=== PATIENT | female | born 1985 | race African-American/Black ===

== ENCOUNTER 2020-07-29 14:57 | Inpatient (IN) | payer OTHER, SELFPAY ==
[2020-07-29 17:18] VITALS: BMI 30.5
[2020-07-29 18:00] VITALS: BP 122/83; PULSE 72; TEMP 36.8; O2SAT 100
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
--- NOTE | 2020-07-29 19:05 | PC.NURSE ---
PT SIGNED A 3 DAY NOTICE ON 07/29/20, UP ON Monday08/03/20.
[2020-07-29] MEDS: cephALEXin 500 MG CAPSULE PO (21:30)
[2020-07-29] MEDS: risperiDONE 1 MG TABLET PO (21:30)
[2020-07-30] MEDS: cephALEXin 500 MG CAPSULE PO ×3 (08:22→20:28)
[2020-07-30 08:51] LABS: Cholesterol 139 mg/dL; Estimated Average Glucose 91 mg/dL; HDL Cholesterol 38 mg/dL; Hemoglobin A1c % 4.8 %; LDL Cholesterol Calculated 96 mg/dl; Triglycerides 25 mg/dL
[2020-07-30 09:08] LABS: Thyroid Stimulating Hormone 0.93 uIU/mL (0.32-4.0)
[2020-07-30 09:58] LABS: Folate 4.4 ng/mL (> or = 4.0); Vitamin B12 1981 pg/mL (200-900)
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
[2020-07-30 14:32] VITALS: BMI 31.0
--- NOTE | 2020-07-30 15:13 | PC.NURSE ---
Hospitalist consult entered for eval of right breast cyst. Pt reports she has had this for sometime and its not draining.
[2020-07-30 16:50] VITALS: BP 119/63; PULSE 70; RESP 16; TEMP 36.7; O2SAT 100
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
[2020-07-31] MEDS: cephALEXin 500 MG CAPSULE PO ×2 (08:54→14:55)
--- NOTE | 2020-07-31 12:52 | P.DS_ITS ---
DS: Providers Provider Date of Service: 07/31/20 Date of admission: 07/29/20 14:57 Date of discharge: 07/31/20 Primary care physician: Stu Kulkarni MD Attending physician on admission: Aj Oneill Consults: 07/30/20 13:43 Consult to Hospitalist Routine Consulting Provider: Hospitalist Reason For Exam: admissions physical Attending physician on discharge: Aj Oneill DS: Diagnosis Discharge Diagnosis (1) Bipolar 1 disorder: Status: Acute (2) Cellulitis of female breast: Status: Acute Problem details: on abx DS: Medications Discharge Medications Home Medications: Home Medications Medication Instructions Recorded Confirmed cephalexin 500 mg PO TID 07/30/20 07/30/20 Discharge Plan Discharge Patient Disposition: Home, Self-Care Discharge Diagnosis: Bipolar disorder, single manic episode Referrals: [facility] [Other] - 1 Week (Please call the above number to schedule an Intake therapy and medication evaluation appointment) [facility] [Other] - 1 Week (Please call the above number to schedule an Intake if you are interested in the [facility] program) Stu Kulkarni MD [Primary Care Provider] - 1 Week Discharge Medications: Continued cephalexin 500 mg Capsule 500 mg PO TID RF: 0 Discharge Orders: Discharge Order (Routine); Ordered 07/31/20 Ordered By: Aj Oneill Diet: regular diet Activity on Discharge: As tolerated Stand Alone Forms: Patient Portal Discharge page, Community Support Care Plan Goals: [facility] with pending [facility] Maintain mood and safe behaviors Practice coping skills Reach out for help when needed Health Concerns: Mood instability; history of SI Cellulitis Plan of Treatment: Follow up with PCP regarding Cellulitis Consider meeting with psychiatric prescriber Assessment: Risk assessment at time of discharge: Patient has been observed closely by nursing and unit staff throughout admission; patient has not engaged in any behaviors that suggest dangerousness to self or others and has demonstrated appropriate behaviors and impulse control. Patient was interviewed prior to discharge and found to be fully oriented and without any SI or HI. Patient has insight and demonstrates good judgment in terms of wanting to pursue treatment. Patient is not in imminent risk of harm to self or others and has a safety plan that includes presenting to the closest ER or calling 911 if feeling unsafe. Discharge Date/Time: 07/31/20 18:50 Mental Status Exam Mental Status Exam Narrative: Pt is alert and oriented; behavior is cooperative, friendly and manic; patient is not in distress; dressed in appropriate casual attire with good hygiene; mood is described as great and affect expansive; eye contact appropriate; Speech is pressured; some psychomotor agitation present; thought process is organized, linear, logical and goal directed. Thought content is perseverative on persecutory delusions. But remain pertinent to relevant topics; denies any SI/HI. There is no evidence of perceptual disturbance and she denies AVH. 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 Patient is currently manic but polite, friendly and willing and able to listen to television script writer and even entertain alternative perspective. 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 this upsetting experience caused patient to feel depression and become suicidal a few months ago, however by this admission all depression and SI had resolved for over a month and she was in a good mood, without any SI or HI and determined to bring this conspiracy to light through civil lawsuits. Despite Her fixed belief she was willing to briefly stay on the unit at writers request and contemplate television script writer's proposal that her mind may be misinterpreting events. Pt however remained adamant that her interpretation of events is correct, that she is the victim of a conspiracy. Patient felt stable and placed a 3 day notice and requested discharge. throughout the admission, she remained in a good mood, with an effervescent affect and was appropriate with both staff and peers. though exuberant, she was in overall good behavioral and impulse control. she reported sleeping well in a community and in fact slept well through the night. Patient Continued to deny any SI or HI at all or any AVH; social work received information from her parents who reported no concern for any SI or HI; atient has no history of self-harm and does not use drugs or alcohol and television script writer and SW could find no evidence the patient is unsafe for unable to take care for self in the community. Although patient has paranoid and had delusional thinking, she was not in imminent risk for harm to herself or anyone else; she lives with her supportive parents in a stable environment and even agreed to see an outpatient prescriber in order to continue discussing these current events and continue to consider television script writer's assertion that her mind is playing tricks on her and that she is misinterpreting events. Patient does not rise to the level of involuntary commitment and her request for discharge honored Time Spent with Patient Time attestation: Total time spent providing and/or coordinating discharge services:
== END 2020-07-31 18:50 | disposition home or self-care (01) | DRG 753 ==
PROVIDERS: Social Worker; Admitting Provider Psychiatry & Neurology Psychiatry; PCP Internal Medicine; Visit Provider Psychiatry & Neurology Psychiatry
DX: F31.9 Bipolar disorder, unspecified (principal); N61.0 Mastitis without abscess; Z98.84 Bariatric surgery status
CPT/HCPCS: 36415; 80061; 82607; 82746; 83036; 84443

== ENCOUNTER 2021-10-22 19:35 | Inpatient (IN) | payer OTHER, SELFPAY ==
[2021-10-22 19:39] VITALS: BP 116/64; PULSE 75; O2SAT 99
[2021-10-22 19:54] VITALS: BP 124/88; PULSE 73; RESP 18; TEMP 37; O2SAT 99; BMI 18.8
--- NOTE | 2021-10-22 20:06 | ED.PSYCH ---
HPI - Psych General Chief Complaint: Psychiatric Symptoms <Jaxon Jaimes MD - Last Filed: 10/22/21 20:42> Stated Complaint: SEC 12, CRISIS <Jaxon Jaimes MD - Last Filed: 10/22/21 20:42> Time Seen by Provider: 10/22/21 19:50 <Jaxno Jaimes MD - Last Filed: 10/22/21 20:42> Source: patient, EMS, RN notes reviewed and old records reviewed <Jaxon Jaimes MD - Last Filed: 10/22/21 20:42> History of Present Illness HPI Narrative: Patient with a history of bipolar disorder presents after Section 12 was signed by the H and a lot worker. She apparently has [place] in the park recently. She states she is in a good mood because her [employer] case and the case through with Ellen Ramirez. <Jaxon Jaimes MD - Last Filed: 10/22/21 20:42> Related Data Home Medications: Home Medications Medication Instructions Recorded Confirmed No Known Home Meds 10/22/21 10/22/21 <Jaxon Jaimes MD - Last Filed: 10/22/21 20:42> Allergies/Adverse Reactions: Allergies Allergy/AdvReac Type Severity Reaction Status Date / Time No Known Allergies Allergy Verified 07/29/20 18:16 <Jaxon Jaimes MD - Last Filed: 10/22/21 20:42> PMFSH Past Medical History Medical History: Medical History Bipolar 1 disorder <Jaxon Jaimes MD - Last Filed: 10/22/21 20:42> Surgical History: Surgical History Gastric bypass status for obesity Status post panniculectomy <Jaxon Jaimes MD - Last Filed: 10/22/21 20:42> Family History Family History: Family History (Updated 07/30/20 @ 17:46 by Crissy See MD) Other Diabetes mellitus <Jaxon Jaimes MD - Last Filed: 10/22/21 20:42> Social History Social History: Social History Household Members: Family Housing: House Do you presently have visiting nurse or other home services: No Patient Tobacco Use Status: Never used Tobacco e-Cigarette/Vaping Use: Never Used Second Hand Smoke Exposure: No Advance Directives: No Advance Directives Information Provided: No service: No Sexual orientation: Did not discuss <Jaxon Jaimes MD - Last Filed: 10/22/21 20:42> Physical Exam Vital Signs: Vital Signs: Last Vital Signs Temp 98.4 F 10/23/21 11:35 Pulse 103 H 10/23/21 11:35 Resp 14 10/23/21 11:13 BP 132/88 10/23/21 11:35 Pulse Ox 100 10/23/21 11:13 O2 Del Method 10/23/21 11:13 BMI result Body Mass Index 18.8 <Jaxon Jaimes MD - Last Filed: 10/22/21 20:42> Vital Signs: Last Vital Signs Temp 98.4 F 10/23/21 11:35 Pulse 103 H 10/23/21 11:35 Resp 14 10/23/21 11:13 BP 132/88 10/23/21 11:35 Pulse Ox 100 10/23/21 11:13 O2 Del Method 10/23/21 11:13 BMI result Body Mass Index 18.8 <Jayden Pope MD - Last Filed: 10/23/21 13:27> Course Reevaluation(s) Reevaluation #1: Patient delusional with bipolar disorder paranoid awaiting for BPH and evaluation for possible inpatient psych admission. Patient had uneventful night vitals are stable <Jayden Pope MD - Last Filed: 10/23/21 13:27> Time: 09:21 <Jayden Pope MD - Last Filed: 10/23/21 13:27> MDM - Psych Lab Data Result diagrams: : 10/22/21 20:23 10/22/21 20:23 <Jaxon Jaimes MD - Last Filed: 10/22/21 20:42> Labs: Lab Results 10/22/21 10/22/21 10/22/21 Range/Units 20:23 20:23 20:23 WBC 6.7 (4.8-10.8) X10*3/uL RBC 4.36 (4.20-5.50) X10*6/uL Hgb 13.8 (12.0-16.0) g/dl Hct 41.4 (37.0-47.0) % MCV 95.0 (80.0-98.0) fL MCH 31.7 (27.0-33.0) pg MCHC 33.3 (31.0-35.0) g/dl RDW 12.6 (11.0-16.0) % Plt Count 273 (160-400) X10*3/uL MPV 8.8 L (9.4-12.3) fL Immature Gran % (Auto) 0.6 H (0.0-0.4) % Neut % (Auto) 48.2 (45-73) % Lymph % (Auto) 43.5 H (20-40) % [place] % (Auto) 6.5 (2-11) % Eos % (Auto) 0.3 (0-4) % Baso % (Auto) 0.9 (0-2) % Lymph # (Auto) 2.9 (1.2-4.9) X10*3/uL [place] # (Auto) 0.4 (0.1-1.2) X10*3/uL Eos # (Auto) 0.0 (0.0-0.4) X10*3/uL Baso # (Auto) 0.1 (0.0-0.2) X10*3/uL Abs Immat Gran (auto) 0.04 H (0.00-0.03) X10*3/uL Absolute Neuts (auto) 3.3 (2.0-8.3) x10*3/uL Absolute Nucleated RBC 0.000 (0.0-0.012) X10*3/uL Nucleated RBC % (auto) 0.0 (0.0-0.2) /100WBC Sodium 140 (135-145) mmol/L Potassium 3.7 (3.3-5.1) mmol/L Chloride 105 (96-108) mmol/L Carbon Dioxide 26 (22-29) mmol/L Anion Gap 13 (12-20) BUN 12 (9-16) mg/dL Creatinine 0.63 (0.5-1.4) mg/dL Estim Creat Clear Calc 99.0 Estimated GFR > 60 Random Glucose 80 (60-115) mg/dL Calcium 9.2 (8.4-10.2) mg/dL TSH 1.11 (0.32-4.0) uIU/mL Urine Color Urine Appearance Urine pH (5.0-9.0) Ur Specific [place] (1.005-1.025) Urine Protein (Neg-Trace) mg/dL Urine Glucose (UA) (Negative) mg/dL Urine Ketones (Negative) mg/dL Urine Blood (Negative) Urine Nitrite (Negative) Ur Leukocyte Esterase (Negative) Urine RBC (0-2) /HPF Urine WBC (0-5) /HPF Ur Squamous Epith Cells (0-2) /HPF Urine Bacteria (None Seen) Hyaline Casts (0-2) /LPF Urine Test (NEGATIVE) Urine Opiates Screen (Not Detect) Urine Fentanyl Screen (Not Detect) Acetaminophen < 1 (<30) mcg/mL Ur Barbiturates Screen (Not Detect) Ur Phencyclidine Scrn (Not Detect) Ur Amphetamines Screen (Not Detect) U Benzodiazepines Scrn (Not Detect) Urine Cocaine Screen (Not Detect) U Marijuana (THC) Screen (Not Detect) Ethyl Alcohol mg/dL COVID-19 (DENISA) Negative (Negative) COVID-19 Clin Com See Note 10/22/21 10/22/21 10/22/21 Range/Units 20:23 21:44 21:44 WBC (4.8-10.8) X10*3/uL RBC (4.20-5.50) X10*6/uL Hgb (12.0-16.0) g/dl Hct (37.0-47.0) % MCV (80.0-98.0) fL MCH (27.0-33.0) pg MCHC (31.0-35.0) g/dl RDW (11.0-16.0) % Plt Count (160-400) X10*3/uL MPV (9.4-12.3) fL Immature Gran % (Auto) (0.0-0.4) % Neut % (Auto) (45-73) % Lymph % (Auto) (20-40) % [place] % (Auto) (2-11) % Eos % (Auto) (0-4) % Baso % (Auto) (0-2) % Lymph # (Auto) (1.2-4.9) X10*3/uL [place] # (Auto) (0.1-1.2) X10*3/uL Eos # (Auto) (0.0-0.4) X10*3/uL Baso # (Auto) (0.0-0.2) X10*3/uL Abs Immat Gran (auto) (0.00-0.03) X10*3/uL Absolute Neuts (auto) (2.0-8.3) x10*3/uL Absolute Nucleated RBC (0.0-0.012) X10*3/uL Nucleated RBC % (auto) (0.0-0.2) /100WBC Sodium (135-145) mmol/L Potassium (3.3-5.1) mmol/L Chloride (96-108) mmol/L Carbon Dioxide (22-29) mmol/L Anion Gap (12-20) BUN (9-16) mg/dL Creatinine (0.5-1.4) mg/dL Estim Creat Clear Calc Estimated GFR Random Glucose (60-115) mg/dL Calcium (8.4-10.2) mg/dL TSH (0.32-4.0) uIU/mL Urine Color Urine Appearance Urine pH (5.0-9.0) Ur Specific [place] (1.005-1.025) Urine Protein (Neg-Trace) mg/dL Urine Glucose (UA) (Negative) mg/dL Urine Ketones (Negative) mg/dL Urine Blood (Negative) Urine Nitrite (Negative) Ur Leukocyte Esterase (Negative) Urine RBC (0-2) /HPF Urine WBC (0-5) /HPF Ur Squamous Epith Cells (0-2) /HPF Urine Bacteria (None Seen) Hyaline Casts (0-2) /LPF Urine Test NEGATIVE (NEGATIVE) Urine Opiates Screen Not Detected (Not Detect) Urine Fentanyl Screen Not Detected (Not Detect) Acetaminophen (<30) mcg/mL Ur Barbiturates Screen Not Detected (Not Detect) Ur Phencyclidine Scrn Not Detected (Not Detect) Ur Amphetamines Screen Not Detected (Not Detect) U Benzodiazepines Scrn Not Detected (Not Detect) Urine Cocaine Screen Not Detected (Not Detect) U Marijuana (THC) Screen Not Detected (Not Detect) Ethyl Alcohol < 10 mg/dL COVID-19 (DENISA) (Negative) COVID-19 Clin Com 10/22/21 Range/Units 21:45 WBC (4.8-10.8) X10*3/uL RBC (4.20-5.50) X10*6/uL Hgb (12.0-16.0) g/dl Hct (37.0-47.0) % MCV (80.0-98.0) fL MCH (27.0-33.0) pg MCHC (31.0-35.0) g/dl RDW (11.0-16.0) % Plt Count (160-400) X10*3/uL MPV (9.4-12.3) fL Immature Gran % (Auto) (0.0-0.4) % Neut % (Auto) (45-73) % Lymph % (Auto) (20-40) % [place] % (Auto) (2-11) % Eos % (Auto) (0-4) % Baso % (Auto) (0-2) % Lymph # (Auto) (1.2-4.9) X10*3/uL [place] # (Auto) (0.1-1.2) X10*3/uL Eos # (Auto) (0.0-0.4) X10*3/uL Baso # (Auto) (0.0-0.2) X10*3/uL Abs Immat Gran (auto) (0.00-0.03) X10*3/uL Absolute Neuts (auto) (2.0-8.3) x10*3/uL Absolute Nucleated RBC (0.0-0.012) X10*3/uL Nucleated RBC % (auto) (0.0-0.2) /100WBC Sodium (135-145) mmol/L Potassium (3.3-5.1) mmol/L Chloride (96-108) mmol/L Carbon Dioxide (22-29) mmol/L Anion Gap (12-20) BUN (9-16) mg/dL Creatinine (0.5-1.4) mg/dL Estim Creat Clear Calc Estimated GFR Random Glucose (60-115) mg/dL Calcium (8.4-10.2) mg/dL TSH (0.32-4.0) uIU/mL Urine Color Yellow Urine Appearance Clear Urine pH 6.0 (5.0-9.0) Ur Specific [place] 1.025 (1.005-1.025) Urine Protein Negative (Neg-Trace) mg/dL Urine Glucose (UA) Negative (Negative) mg/dL Urine Ketones Trace (Negative) mg/dL Urine Blood Negative (Negative) Urine Nitrite Negative (Negative) Ur Leukocyte Esterase Small (1+) H (Negative) Urine RBC 0-2 (0-2) /HPF Urine WBC 0-5 (0-5) /HPF Ur Squamous Epith Cells 0-2 (0-2) /HPF Urine Bacteria None Seen (None Seen) Hyaline Casts 0-2 (0-2) /LPF Urine Test (NEGATIVE) Urine Opiates Screen (Not Detect) Urine Fentanyl Screen (Not Detect) Acetaminophen (<30) mcg/mL Ur Barbiturates Screen (Not Detect) Ur Phencyclidine Scrn (Not Detect) Ur Amphetamines Screen (Not Detect) U Benzodiazepines Scrn (Not Detect) Urine Cocaine Screen (Not Detect) U Marijuana (THC) Screen (Not Detect) Ethyl Alcohol mg/dL COVID-19 (DENISA) (Negative) COVID-19 Clin Com <Jaxon Jaimes MD - Last Filed: 10/22/21 20:42> Lab Results 10/22/21 10/22/21 10/22/21 Range/Units 20:23 20:23 20:23 WBC 6.7 (4.8-10.8) X10*3/uL RBC 4.36 (4.20-5.50) X10*6/uL Hgb 13.8 (12.0-16.0) g/dl Hct 41.4 (37.0-47.0) % MCV 95.0 (80.0-98.0) fL MCH 31.7 (27.0-33.0) pg MCHC 33.3 (31.0-35.0) g/dl RDW 12.6 (11.0-16.0) % Plt Count 273 (160-400) X10*3/uL MPV 8.8 L (9.4-12.3) fL Immature Gran % (Auto) 0.6 H (0.0-0.4) % Neut % (Auto) 48.2 (45-73) % Lymph % (Auto) 43.5 H (20-40) % [place] % (Auto) 6.5 (2-11) % Eos % (Auto) 0.3 (0-4) % Baso % (Auto) 0.9 (0-2) % Lymph # (Auto) 2.9 (1.2-4.9) X10*3/uL [place] # (Auto) 0.4 (0.1-1.2) X10*3/uL Eos # (Auto) 0.0 (0.0-0.4) X10*3/uL Baso # (Auto) 0.1 (0.0-0.2) X10*3/uL Abs Immat Gran (auto) 0.04 H (0.00-0.03) X10*3/uL Absolute Neuts (auto) 3.3 (2.0-8.3) x10*3/uL Absolute Nucleated RBC 0.000 (0.0-0.012) X10*3/uL Nucleated RBC % (auto) 0.0 (0.0-0.2) /100WBC Sodium 140 (135-145) mmol/L Potassium 3.7 (3.3-5.1) mmol/L Chloride 105 (96-108) mmol/L Carbon Dioxide 26 (22-29) mmol/L Anion Gap 13 (12-20) BUN 12 (9-16) mg/dL Creatinine 0.63 (0.5-1.4) mg/dL Estim Creat Clear Calc 99.0 Estimated GFR > 60 Random Glucose 80 (60-115) mg/dL Calcium 9.2 (8.4-10.2) mg/dL TSH 1.11 (0.32-4.0) uIU/mL Urine Color Urine Appearance Urine pH (5.0-9.0) Ur Specific [place] (1.005-1.025) Urine Protein (Neg-Trace) mg/dL Urine Glucose (UA) (Negative) mg/dL Urine Ketones (Negative) mg/dL Urine Blood (Negative) Urine Nitrite (Negative) Ur Leukocyte Esterase (Negative) Urine RBC (0-2) /HPF Urine WBC (0-5) /HPF Ur Squamous Epith Cells (0-2) /HPF Urine Bacteria (None Seen) Hyaline Casts (0-2) /LPF Urine Test (NEGATIVE) Urine Opiates Screen (Not Detect) Urine Fentanyl Screen (Not Detect) Acetaminophen < 1 (<30) mcg/mL Ur Barbiturates Screen (Not Detect) Ur Phencyclidine Scrn (Not Detect) Ur Amphetamines Screen (Not Detect) U Benzodiazepines Scrn (Not Detect) Urine Cocaine Screen (Not Detect) U Marijuana (THC) Screen (Not Detect) Ethyl Alcohol mg/dL COVID-19 (DENISA) Negative (Negative) COVID-19 Clin Com See Note 10/22/21 10/22/21 10/22/21 Range/Units 20:23 21:44 21:44 WBC (4.8-10.8) X10*3/uL RBC (4.20-5.50) X10*6/uL Hgb (12.0-16.0) g/dl Hct (37.0-47.0) % MCV (80.0-98.0) fL MCH (27.0-33.0) pg MCHC (31.0-35.0) g/dl RDW (11.0-16.0) % Plt Count (160-400) X10*3/uL MPV (9.4-12.3) fL Immature Gran % (Auto) (0.0-0.4) % Neut % (Auto) (45-73) % Lymph % (Auto) (20-40) % [place] % (Auto) (2-11) % Eos % (Auto) (0-4) % Baso % (Auto) (0-2) % Lymph # (Auto) (1.2-4.9) X10*3/uL [place] # (Auto) (0.1-1.2) X10*3/uL Eos # (Auto) (0.0-0.4) X10*3/uL Baso # (Auto) (0.0-0.2) X10*3/uL Abs Immat Gran (auto) (0.00-0.03) X10*3/uL Absolute Neuts (auto) (2.0-8.3) x10*3/uL Absolute Nucleated RBC (0.0-0.012) X10*3/uL Nucleated RBC % (auto) (0.0-0.2) /100WBC Sodium (135-145) mmol/L Potassium (3.3-5.1) mmol/L Chloride (96-108) mmol/L Carbon Dioxide (22-29) mmol/L Anion Gap (12-20) BUN (9-16) mg/dL Creatinine (0.5-1.4) mg/dL Estim Creat Clear Calc Estimated GFR Random Glucose (60-115) mg/dL Calcium (8.4-10.2) mg/dL TSH (0.32-4.0) uIU/mL Urine Color Urine Appearance Urine pH (5.0-9.0) Ur Specific [place] (1.005-1.025) Urine Protein (Neg-Trace) mg/dL Urine Glucose (UA) (Negative) mg/dL Urine Ketones (Negative) mg/dL Urine Blood (Negative) Urine Nitrite (Negative) Ur Leukocyte Esterase (Negative) Urine RBC (0-2) /HPF Urine WBC (0-5) /HPF Ur Squamous Epith Cells (0-2) /HPF Urine Bacteria (None Seen) Hyaline Casts (0-2) /LPF Urine Test NEGATIVE (NEGATIVE) Urine Opiates Screen Not Detected (Not Detect) Urine Fentanyl Screen Not Detected (Not Detect) Acetaminophen (<30) mcg/mL Ur Barbiturates Screen Not Detected (Not Detect) Ur Phencyclidine Scrn Not Detected (Not Detect) Ur Amphetamines Screen Not Detected (Not Detect) U Benzodiazepines Scrn Not Detected (Not Detect) Urine Cocaine Screen Not Detected (Not Detect) U Marijuana (THC) Screen Not Detected (Not Detect) Ethyl Alcohol < 10 mg/dL COVID-19 (DENISA) (Negative) COVID-19 Clin Com 10/22/21 Range/Units 21:45 WBC (4.8-10.8) X10*3/uL RBC (4.20-5.50) X10*6/uL Hgb (12.0-16.0) g/dl Hct (37.0-47.0) % MCV (80.0-98.0) fL MCH (27.0-33.0) pg MCHC (31.0-35.0) g/dl RDW (11.0-16.0) % Plt Count (160-400) X10*3/uL MPV (9.4-12.3) fL Immature Gran % (Auto) (0.0-0.4) % Neut % (Auto) (45-73) % Lymph % (Auto) (20-40) % [place] % (Auto) (2-11) % Eos % (Auto) (0-4) % Baso % (Auto) (0-2) % Lymph # (Auto) (1.2-4.9) X10*3/uL [place] # (Auto) (0.1-1.2) X10*3/uL Eos # (Auto) (0.0-0.4) X10*3/uL Baso # (Auto) (0.0-0.2) X10*3/uL Abs Immat Gran (auto) (0.00-0.03) X10*3/uL Absolute Neuts (auto) (2.0-8.3) x10*3/uL Absolute Nucleated RBC (0.0-0.012) X10*3/uL Nucleated RBC % (auto) (0.0-0.2) /100WBC Sodium (135-145) mmol/L Potassium (3.3-5.1) mmol/L Chloride (96-108) mmol/L Carbon Dioxide (22-29) mmol/L Anion Gap (12-20) BUN (9-16) mg/dL Creatinine (0.5-1.4) mg/dL Estim Creat Clear Calc Estimated GFR Random Glucose (60-115) mg/dL Calcium (8.4-10.2) mg/dL TSH (0.32-4.0) uIU/mL Urine Color Yellow Urine Appearance Clear Urine pH 6.0 (5.0-9.0) Ur Specific [place] 1.025 (1.005-1.025) Urine Protein Negative (Neg-Trace) mg/dL Urine Glucose (UA) Negative (Negative) mg/dL Urine Ketones Trace (Negative) mg/dL Urine Blood Negative (Negative) Urine Nitrite Negative (Negative) Ur Leukocyte Esterase Small (1+) H (Negative) Urine RBC 0-2 (0-2) /HPF Urine WBC 0-5 (0-5) /HPF Ur Squamous Epith Cells 0-2 (0-2) /HPF Urine Bacteria None Seen (None Seen) Hyaline Casts 0-2 (0-2) /LPF Urine Test (NEGATIVE) Urine Opiates Screen (Not Detect) Urine Fentanyl Screen (Not Detect) Acetaminophen (<30) mcg/mL Ur Barbiturates Screen (Not Detect) Ur Phencyclidine Scrn (Not Detect) Ur Amphetamines Screen (Not Detect) U Benzodiazepines Scrn (Not Detect) Urine Cocaine Screen (Not Detect) U Marijuana (THC) Screen (Not Detect) Ethyl Alcohol mg/dL COVID-19 (DENISA) (Negative) COVID-19 Clin Com <Jayden Pope MD - Last Filed: 10/23/21 13:27> Discharge Plan Discharge Patient Disposition: Admitted As Inpatient <Jaxon Jaimes MD - Last Filed: 10/22/21 20:42> Interventions: Admission Worksheet (ED) Last Done: 10/23/21 11:46 <Jaxon Jaimes MD - Last Filed: 10/22/21 20:42>
--- NOTE | 2021-10-22 20:25 | MHC.CARE ---
Pt is a bedsearch from the community and will likely be admitted today.
[2021-10-22 20:29] LABS: MANUAL DIFF FLAG NO
[2021-10-22 20:39] LABS: Basophils Absolute Auto 0.1 X10*3/uL (0.0-0.2); Basophils Percent Auto 0.9 % (0-2); Eosinophils Percent Auto 0.3 % (0-4); Hematocrit 41.4 % (37.0-47.0); Hemoglobin 13.8 g/dl (12.0-16.0); Imm Gran Abs Auto 0.04 X10*3/uL (0.00-0.03); Imm Gran Pct Auto 0.6 % (0.0-0.4); Lymphocytes Absolute Auto 2.9 X10*3/uL (1.2-4.9); Lymphocytes Percent Auto 43.5 % (20-40); Mean Corpuscular HGB Conc 33.3 g/dl (31.0-35.0); Mean Corpuscular Hemoglobin 31.7 pg (27.0-33.0); Mean Platelet Volume 8.8 fL (9.4-12.3); Monocytes Absolute Auto 0.4 X10*3/uL (0.1-1.2); Monocytes Percent Auto 6.5 % (2-11); Neutrophils Absolute Auto 3.3 x10*3/uL (2.0-8.3); Neutrophils Percent Auto 48.2 % (45-73); Platelet Count 273 X10*3/uL (160-400); Red Blood Count 4.36 X10*6/uL (4.20-5.50); Red Cell Distribution Width 12.6 % (11.0-16.0); White Blood Count 6.7 X10*3/uL (4.8-10.8)
[2021-10-22 20:44] LABS: COVID-19 Test Negative (Negative)
[2021-10-22 21:00] LABS: Ethanol < 10 mg/dL
[2021-10-22 21:04] LABS: Acetaminophen LAB < 1 mcg/mL (<30); Anion Gap 13 (12-20); Blood Urea Nitrogen 12 mg/dL (9-16); Calcium 9.2 mg/dL (8.4-10.2); Carbon Dioxide 26 mmol/L (22-29); Chloride 105 mmol/L (96-108); Estimated Glomerular Filt Rate > 60; Glucose Random 80 mg/dL (60-115); Potassium 3.7 mmol/L (3.3-5.1); Sodium 140 mmol/L (135-145)
[2021-10-22 21:24] LABS: TSH reflex Free T4 1.11 uIU/mL (0.32-4.0)
[2021-10-22 21:54] LABS: Appearance Urine Clear; Color Urine Yellow; Glucose Urine UA Negative (Negative); Leukocyte Esterase Urine Small (1+) (Negative); Nitrite Urine Negative (Negative); Specific Gravity - Urine 1.025 (1.005-1.025); UMIC TRIGGER UACC YES; Urine Blood Negative (Negative); Urine Ketones Trace mg/dL (Negative); Urine Protein Negative (Neg-Trace)
[2021-10-22 21:55] LABS: UPreg QC Valid YES; Urine Pregnancy NEGATIVE (NEGATIVE)
[2021-10-22 22:02] LABS: Bacteria Urine None Seen (None Seen); Hyaline Casts Urine 0-2 /LPF (0-2); RBC Urine 0-2 /HPF (0-2); Squamous Epithelial Cell Urine 0-2 /HPF (0-2); UACC Culture Trigger YES; WBC Urine 0-5 /HPF (0-5)
[2021-10-22 22:23] LABS: Amphetamine Screen Urine Not Detected (Not Detect); Barbiturates, Urine Not Detected (Not Detect); Benzodiazepines Screen Urine Not Detected (Not Detect); Cannabinoid Screen Urine Not Detected (Not Detect); Cocaine Screen Urine Not Detected (Not Detect); Fentanyl, urine Not Detected (Not Detect); Opiate Screen Urine Not Detected (Not Detect); Phencyclidine Screen Urine Not Detected (Not Detect)
[2021-10-23 02:08] VITALS: BP 142/96; PULSE 73; RESP 16; TEMP 36.9; O2SAT 99
--- NOTE | 2021-10-23 05:38 | PC.NURSE ---
Patient slept through the night, no distress observed/reported, behavior appropriate and non concerning, thought process coherent, thought content at time paranoid, patient was assessed by [facility] in the community, disposition is section 12 inpatient bed search, med rec completed/patient is currently not on any medication, VSS, patient' follows direction well, will continue to monitor.
--- NOTE | 2021-10-23 10:18 | PC.NURSE ---
Nurse to nurse given to m5 RN pt room will be [id number]
[2021-10-23 11:13] VITALS: BP 118/77; PULSE 93; RESP 14; TEMP 36.9; O2SAT 100
--- NOTE | 2021-10-23 11:32 | PHA.MEDREC ---
Pharmacy Consult ? Medication Reconciliation Pharmacy has completed the medication reconciliation. Reviewed med rec done by nursing (Maico). Patient reported to not be on any meds at this time, and cross-referenced with calim history to confirm.
[2021-10-23 11:35] VITALS: BP 132/88; PULSE 103; TEMP 36.9
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
[2021-10-23 18:00] VITALS: BP 128/82; PULSE 94; TEMP 37.1
[2021-10-24 06:00] VITALS: BP 131/86; PULSE 79; RESP 16; TEMP 36.7; O2SAT 99
[2021-10-24 08:39] LABS: Cholesterol 127 mg/dL; HDL Cholesterol 46 mg/dL; LDL Cholesterol Calculated 77 mg/dl; Triglycerides 22 mg/dL
[2021-10-24 08:55] LABS: Free T4 (Free Thyroxine) 0.99 ng/dL (0.71-1.85); Thyroid Stimulating Hormone 0.75 uIU/mL (0.32-4.0)
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
[2021-10-24 18:00] VITALS: RESP 16
[2021-10-25 06:00] VITALS: BP 99/62; PULSE 91; RESP 16; TEMP 36.7; O2SAT 100
[2021-10-25 07:37] LABS: Estimated Average Glucose 91 mg/dL; Hemoglobin A1c % 4.8 %
[2021-10-25 08:11] LABS: Folate 7.3 ng/mL (> or = 4.0); Vitamin B12 415 pg/mL (200-900)
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
[2021-10-25 16:22] VITALS: BP 106/65; PULSE 69
[2021-10-26 08:30] VITALS: BP 119/81; PULSE 91; TEMP 36.8
[2021-10-26 16:31] VITALS: BP 139/76; PULSE 92; RESP 22; TEMP 37.3; O2SAT 99
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
[2021-10-27 06:00] VITALS: BP 123/73; PULSE 85; RESP 18; TEMP 36.4; O2SAT 98
[2021-10-27 18:00] VITALS: BP 135/78; PULSE 109; RESP 22; TEMP 37.2; O2SAT 98
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
[2021-10-28 09:29] VITALS: BP 124/75; PULSE 74; RESP 20; TEMP 36.8; O2SAT 95
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
[2021-10-28 16:49] VITALS: BP 118/78; PULSE 69; RESP 16; TEMP 36.6; O2SAT 98
[2021-10-29 06:00] VITALS: BP 119/79; PULSE 86; RESP 18; TEMP 36.3; O2SAT 98
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
[2021-10-29 18:00] VITALS: BP 112/66; PULSE 84; RESP 16; TEMP 36.5; O2SAT 98
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
--- NOTE | 2021-10-30 14:35 | PC.NURSE ---
pts attny called to speak with pt. pt declined to come to phone as she states she has her own legal team looking into her case.
[2021-10-30 18:00] VITALS: BP 110/76; PULSE 80; RESP 20; TEMP 36.6; O2SAT 98
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
[2021-10-31 18:30] VITALS: BP 111/58; PULSE 76; TEMP 36.6; O2SAT 99
[2021-11-01 06:00] VITALS: BP 98/55; PULSE 85; RESP 18; TEMP 37; O2SAT 99
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
[2021-11-01 21:15] VITALS: BP 122/63; PULSE 78; RESP 18; TEMP 36.8; O2SAT 100
[2021-11-02 07:45] VITALS: BP 125/75; PULSE 100; RESP 16; TEMP 36.7; O2SAT 99
[2021-11-02 18:00] VITALS: RESP 16
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
[2021-11-03 21:55] VITALS: BP 118/82; PULSE 82; TEMP 36.2; O2SAT 100
[2021-11-04 08:54] VITALS: BP 107/76; PULSE 71; RESP 14; TEMP 36.3; O2SAT 100
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
[2021-11-04 16:20] VITALS: BP 134/85; PULSE 99; RESP 16; TEMP 36.5; O2SAT 98
[2021-11-04] MEDS: Divalproex Sodium ER 500 MG TAB.ER.24H PO (20:23)
[2021-11-05 06:00] VITALS: BP 129/83; PULSE 89; RESP 18
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
[2021-11-05 18:00] VITALS: BP 119/74; PULSE 77; TEMP 36.9
[2021-11-06 06:00] VITALS: BP 131/76; PULSE 85; TEMP 36.4; O2SAT 100
[2021-11-06] MEDS: Divalproex Sodium ER 500 MG TAB.ER.24H PO ×2 (09:45→20:29)
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
[2021-11-06 18:00] VITALS: RESP 20
[2021-11-06] MEDS: OLANZapine 10 MG TABLET PO (20:29)
[2021-11-07 09:13] VITALS: BP 93/55; PULSE 59; TEMP 36.6
[2021-11-07] MEDS: Divalproex Sodium ER 500 MG TAB.ER.24H PO ×2 (09:27→21:08)
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
[2021-11-07 16:53] VITALS: BP 109/69; PULSE 80; TEMP 36.8; O2SAT 94
[2021-11-07] MEDS: OLANZapine 10 MG TABLET PO (21:08)
[2021-11-08] MEDS: Divalproex Sodium ER 500 MG TAB.ER.24H PO ×2 (09:07→19:27)
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
[2021-11-08 16:36] VITALS: BP 129/75; PULSE 75; RESP 16; TEMP 36.8; O2SAT 99
[2021-11-08] MEDS: OLANZapine ODT 10 MG TAB.RAPDIS TRANSLINGU (19:27)
[2021-11-09 06:00] VITALS: BP 110/78; PULSE 99; RESP 16; TEMP 36.7; O2SAT 99
[2021-11-09 08:19] LABS: Ammonia 21 umol/L (13-55)
[2021-11-09 08:20] LABS: Alanine Aminotransferase 10 U/L (0-31); Albumin Level 3.7 g/dL (3.5-5.0); Alkaline Phosphatase 39 U/L (39-117); Aspartate Amino Transferase 11 U/L (5-31); Bilirubin Direct 0.3 mg/dL (0.0-0.5); Bilirubin Total 0.8 mg/dL (0.0-1.0); Total Protein 6.3 g/dL (6.5-8.0)
[2021-11-09] MEDS: Divalproex Sodium ER 500 MG TAB.ER.24H PO (09:05)
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
[2021-11-09 18:00] VITALS: BP 112/68; PULSE 91; RESP 16; TEMP 36.8; O2SAT 98
[2021-11-09] MEDS: Divalproex Sodium ER 500 MG TAB.ER.24H 1000 MG PO (19:54)
[2021-11-09] MEDS: OLANZapine ODT 10 MG TAB.RAPDIS TRANSLINGU (19:55)
[2021-11-10 06:00] VITALS: BP 103/66; PULSE 98; RESP 16; TEMP 36.8; O2SAT 98
[2021-11-10] MEDS: Divalproex Sodium ER 500 MG TAB.ER.24H PO (09:31)
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
[2021-11-10 16:32] VITALS: BP 126/79; PULSE 95; RESP 116; TEMP 36.6; O2SAT 95
[2021-11-10] MEDS: OLANZapine ODT 10 MG TAB.RAPDIS 15 MG TRANSLINGU (21:28)
[2021-11-10] MEDS: Divalproex Sodium ER 500 MG TAB.ER.24H 1000 MG PO (21:28)
[2021-11-11 06:00] VITALS: BP 92/51; PULSE 61; RESP 16; TEMP 36.5; O2SAT 100
[2021-11-11] MEDS: Divalproex Sodium ER 500 MG TAB.ER.24H PO (08:08)
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
[2021-11-11 19:26] VITALS: BP 116/63; PULSE 93; TEMP 36.9
[2021-11-11] MEDS: OLANZapine ODT 10 MG TAB.RAPDIS 15 MG TRANSLINGU (22:07)
[2021-11-11] MEDS: Divalproex Sodium ER 500 MG TAB.ER.24H 1000 MG PO (22:08)
[2021-11-12 06:00] VITALS: BP 118/59; PULSE 71; RESP 14; TEMP 36; O2SAT 96
[2021-11-12 08:59] LABS: Ammonia 55 umol/L (13-55)
[2021-11-12 09:22] LABS: Valproate 77.3 mcg/mL (50.0-100.0)
[2021-11-12 09:56] LABS: Alanine Aminotransferase 9 U/L (0-31); Albumin Level 3.8 g/dL (3.5-5.0); Alkaline Phosphatase 36 U/L (39-117); Aspartate Amino Transferase 10 U/L (5-31); Bilirubin Direct 0.3 mg/dL (0.0-0.5); Bilirubin Total 0.7 mg/dL (0.0-1.0); Total Protein 6.4 g/dL (6.5-8.0)
[2021-11-12 18:14] VITALS: BP 111/71; PULSE 81; TEMP 36.4
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
[2021-11-12] MEDS: Divalproex Sodium ER 500 MG TAB.ER.24H 1500 MG PO (21:48)
[2021-11-12] MEDS: OLANZapine ODT 10 MG TAB.RAPDIS 20 MG TRANSLINGU (21:48)
[2021-11-13 13:31] VITALS: BP 107/68; PULSE 84; RESP 20; TEMP 36.2; O2SAT 100
[2021-11-13 18:00] VITALS: BP 114/62; PULSE 91; RESP 16; TEMP 36.4; O2SAT 100
[2021-11-13] MEDS: OLANZapine ODT 10 MG TAB.RAPDIS 20 MG TRANSLINGU (20:11)
[2021-11-13] MEDS: Divalproex Sodium ER 500 MG TAB.ER.24H 1500 MG PO (20:11)
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
[2021-11-14 11:30] VITALS: BP 104/65; PULSE 76; RESP 16; TEMP 36.3; O2SAT 99
[2021-11-14 17:02] VITALS: BP 110/72; PULSE 95; RESP 16; TEMP 36.4; O2SAT 96
[2021-11-14] MEDS: Divalproex Sodium ER 500 MG TAB.ER.24H 1500 MG PO (19:15)
[2021-11-14] MEDS: OLANZapine ODT 10 MG TAB.RAPDIS 20 MG TRANSLINGU (19:16)
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
[2021-11-15 06:00] VITALS: BP 114/62; PULSE 70; RESP 14; TEMP 36.4; O2SAT 100
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
[2021-11-15 18:00] VITALS: BP 156/66; PULSE 78; RESP 20; TEMP 36.2; O2SAT 100
[2021-11-15] MEDS: Divalproex Sodium ER 500 MG TAB.ER.24H 1500 MG PO (22:19)
[2021-11-15] MEDS: OLANZapine ODT 10 MG TAB.RAPDIS 30 MG TRANSLINGU (22:21)
[2021-11-16 06:00] VITALS: BP 106/67; PULSE 80; RESP 18
[2021-11-16 16:20] VITALS: BP 118/71; PULSE 88; RESP 16; O2SAT 98
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
[2021-11-16] MEDS: OLANZapine ODT 10 MG TAB.RAPDIS 30 MG TRANSLINGU (20:32)
[2021-11-16] MEDS: Divalproex Sodium ER 500 MG TAB.ER.24H 1500 MG PO (20:32)
[2021-11-17 06:00] VITALS: PULSE 76; RESP 17; TEMP 36; O2SAT 99
[2021-11-17 09:27] VITALS: BP 92/64; PULSE 64; RESP 16
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
[2021-11-17 18:00] VITALS: BP 98/71; PULSE 93; TEMP 36.9; O2SAT 99
[2021-11-17] MEDS: Divalproex Sodium ER 500 MG TAB.ER.24H 1500 MG PO (22:39)
[2021-11-17] MEDS: OLANZapine ODT 10 MG TAB.RAPDIS 30 MG TRANSLINGU (22:39)
[2021-11-18 11:42] VITALS: BP 116/71; PULSE 99; RESP 18; TEMP 36.7; O2SAT 98
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
[2021-11-18] MEDS: Lithium Carbonate ER 300 MG TABLET.ER PO (20:46)
[2021-11-18] MEDS: OLANZapine ODT 10 MG TAB.RAPDIS 30 MG TRANSLINGU (20:46)
[2021-11-18] MEDS: Divalproex Sodium ER 500 MG TAB.ER.24H 1500 MG PO (20:46)
[2021-11-19 06:00] VITALS: BP 87/53; PULSE 75; RESP 16; TEMP 36.6; O2SAT 100
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
[2021-11-19 18:07] VITALS: BP 120/70; PULSE 100; TEMP 36.9; O2SAT 100
[2021-11-19] MEDS: Lithium Carbonate ER 300 MG TABLET.ER PO (21:57)
[2021-11-19] MEDS: OLANZapine ODT 10 MG TAB.RAPDIS 30 MG TRANSLINGU (21:58)
[2021-11-19] MEDS: Divalproex Sodium ER 500 MG TAB.ER.24H 1500 MG PO (21:58)
[2021-11-20 06:00] VITALS: BP 108/71; PULSE 88; RESP 18; TEMP 37; O2SAT 99
[2021-11-20 16:06] VITALS: BP 115/79; PULSE 107; TEMP 36.6
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
[2021-11-20] MEDS: Divalproex Sodium ER 500 MG TAB.ER.24H 1500 MG PO (22:00)
[2021-11-20] MEDS: Lithium Carbonate ER 300 MG TABLET.ER PO (22:00)
[2021-11-20] MEDS: OLANZapine ODT 10 MG TAB.RAPDIS 30 MG TRANSLINGU (22:00)
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
[2021-11-21 16:21] VITALS: BP 151/66; PULSE 100; TEMP 37
[2021-11-21] MEDS: OLANZapine ODT 10 MG TAB.RAPDIS 30 MG TRANSLINGU (21:59)
[2021-11-21] MEDS: Lithium Carbonate ER 300 MG TABLET.ER PO (21:59)
[2021-11-21] MEDS: Divalproex Sodium ER 500 MG TAB.ER.24H 1500 MG PO (21:59)
[2021-11-22 06:00] VITALS: BP 114/76; PULSE 78; RESP 16
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
[2021-11-22 19:00] VITALS: BP 118/57; PULSE 95; RESP 16; TEMP 37.3; O2SAT 98
[2021-11-22] MEDS: Lithium Carbonate ER 300 MG TABLET.ER PO (22:04)
[2021-11-22] MEDS: Divalproex Sodium ER 500 MG TAB.ER.24H 1500 MG PO (22:04)
[2021-11-22] MEDS: OLANZapine ODT 10 MG TAB.RAPDIS 30 MG TRANSLINGU (22:05)
[2021-11-23 06:00] VITALS: BP 108/71; PULSE 69; RESP 16; TEMP 36.5; O2SAT 96
[2021-11-23 09:45] LABS: Lithium 0.23 mmol/L (0.60-1.20)
[2021-11-23 09:51] LABS: Anion Gap 12 (12-20); Blood Urea Nitrogen 13 mg/dL (9-16); Carbon Dioxide 24 mmol/L (22-29); Chloride 107 mmol/L (96-108); Creatinine Clr Calc Pharmacy 90.4; Estimated Glomerular Filt Rate > 60; Potassium 4.3 mmol/L (3.3-5.1); Sodium 139 mmol/L (135-145)
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
[2021-11-23] MEDS: Lithium Carbonate ER 300 MG TABLET.ER 600 MG PO (22:35)
[2021-11-23] MEDS: OLANZapine ODT 10 MG TAB.RAPDIS 30 MG TRANSLINGU (22:35)
[2021-11-23] MEDS: Divalproex Sodium ER 500 MG TAB.ER.24H 1500 MG PO (22:36)
[2021-11-24 10:08] VITALS: BP 102/71; PULSE 67; RESP 18; TEMP 36.8; O2SAT 100
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
[2021-11-24 19:10] VITALS: BP 102/61; PULSE 94; TEMP 36.7
[2021-11-24] MEDS: Lithium Carbonate ER 300 MG TABLET.ER 600 MG PO (21:51)
[2021-11-24] MEDS: OLANZapine ODT 10 MG TAB.RAPDIS 30 MG TRANSLINGU (21:52)
[2021-11-24] MEDS: Divalproex Sodium ER 500 MG TAB.ER.24H 1500 MG PO (21:53)
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
[2021-11-25 13:21] VITALS: BP 104/64; PULSE 83; RESP 16; TEMP 36.2; O2SAT 95
[2021-11-25 19:35] VITALS: BP 106/61; PULSE 102; TEMP 36.9
[2021-11-25] MEDS: Divalproex Sodium ER 500 MG TAB.ER.24H 1500 MG PO (22:05)
[2021-11-25] MEDS: Lithium Carbonate ER 300 MG TABLET.ER 600 MG PO (22:05)
[2021-11-25] MEDS: OLANZapine ODT 10 MG TAB.RAPDIS 30 MG TRANSLINGU (22:05)
[2021-11-25 23:00] LABS: COVID-19 Test Negative (Negative); IDNOW Serial# 9DB6401D
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
[2021-11-26 11:27] VITALS: BP 106/61; PULSE 84; RESP 18; TEMP 37; O2SAT 99
[2021-11-26 18:42] VITALS: BP 105/63; PULSE 75; TEMP 36.4
[2021-11-26] MEDS: Lithium Carbonate ER 300 MG TABLET.ER 600 MG PO (21:57)
[2021-11-26] MEDS: OLANZapine ODT 10 MG TAB.RAPDIS 30 MG TRANSLINGU (21:57)
[2021-11-26] MEDS: Divalproex Sodium ER 500 MG TAB.ER.24H 1500 MG PO (21:58)
[2021-11-27 06:00] VITALS: BP 109/74; PULSE 84; RESP 20; O2SAT 99
[2021-11-27 18:00] VITALS: BP 103/52; PULSE 85; RESP 18; TEMP 36.1; O2SAT 98
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
[2021-11-27] MEDS: Lithium Carbonate ER 450 MG TABLET.ER PO (22:32)
[2021-11-27] MEDS: Divalproex Sodium ER 500 MG TAB.ER.24H 1500 MG PO (22:32)
[2021-11-27] MEDS: OLANZapine ODT 10 MG TAB.RAPDIS 30 MG TRANSLINGU (22:34)
[2021-11-28 06:00] VITALS: BP 89/59; PULSE 81; RESP 16; TEMP 37.1; O2SAT 100
[2021-11-28 09:24] LABS: Lithium 0.49 mmol/L (0.60-1.20)
[2021-11-28 09:29] LABS: Anion Gap 14 (12-20); Blood Urea Nitrogen 14 mg/dL (9-16); Carbon Dioxide 25 mmol/L (22-29); Chloride 107 mmol/L (96-108); Creatinine Clr Calc Pharmacy 96.1; Estimated Glomerular Filt Rate > 60; Potassium 4.8 mmol/L (3.3-5.1); Sodium 141 mmol/L (135-145)
[2021-11-28 09:51] LABS: TSH reflex Free T4 2.23 uIU/mL (0.32-4.0)
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
[2021-11-28 17:28] VITALS: BP 111/77; PULSE 69; RESP 18; TEMP 36.9; O2SAT 100
[2021-11-28] MEDS: Divalproex Sodium ER 500 MG TAB.ER.24H 1500 MG PO (22:40)
[2021-11-28] MEDS: Lithium Carbonate ER 450 MG TABLET.ER PO (22:40)
[2021-11-28] MEDS: OLANZapine ODT 10 MG TAB.RAPDIS 30 MG TRANSLINGU (22:40)
[2021-11-29 06:00] VITALS: BP 106/64; PULSE 76; RESP 16; TEMP 36.9; O2SAT 99
[2021-11-29 16:45] VITALS: BP 105/62; PULSE 84; TEMP 36.2
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
[2021-11-29] MEDS: Divalproex Sodium ER 500 MG TAB.ER.24H 1500 MG PO (23:00)
[2021-11-29] MEDS: Lithium Carbonate ER 300 MG TABLET.ER 600 MG PO (23:01)
[2021-11-29] MEDS: OLANZapine ODT 10 MG TAB.RAPDIS 30 MG TRANSLINGU (23:02)
[2021-11-30 08:16] VITALS: BP 106/71; PULSE 61; RESP 16; TEMP 36.9; O2SAT 99
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
[2021-11-30 19:35] VITALS: BP 100/58; PULSE 90; TEMP 36.9
[2021-11-30] MEDS: OLANZapine ODT 10 MG TAB.RAPDIS 30 MG TRANSLINGU (21:58)
[2021-11-30] MEDS: Divalproex Sodium ER 500 MG TAB.ER.24H 1500 MG PO (21:59)
[2021-11-30] MEDS: Lithium Carbonate ER 300 MG TABLET.ER 600 MG PO (21:59)
[2021-12-01 08:22] VITALS: BP 98/68; PULSE 64; RESP 18; TEMP 36.6; O2SAT 99
[2021-12-01 09:37] LABS: Blood Urea Nitrogen 14 mg/dL (9-16); Creatinine Clr Calc Pharmacy 93.2; Estimated Glomerular Filt Rate > 60
[2021-12-01 09:48] LABS: Lithium 0.54 mmol/L (0.60-1.20)
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
[2021-12-01 18:00] VITALS: BP 104/58; PULSE 85; RESP 16; TEMP 36.8; O2SAT 99
[2021-12-01] MEDS: Divalproex Sodium ER 500 MG TAB.ER.24H 1500 MG PO (22:16)
[2021-12-01] MEDS: OLANZapine ODT 10 MG TAB.RAPDIS 30 MG TRANSLINGU (22:16)
[2021-12-01] MEDS: Lithium Carbonate ER 300 MG TABLET.ER 600 MG PO (22:17)
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
[2021-12-02 11:40] VITALS: BP 94/58; PULSE 76; RESP 18; TEMP 36.4; O2SAT 98
[2021-12-02 18:00] VITALS: BP 122/82; PULSE 68; RESP 16; TEMP 36.4; O2SAT 97
[2021-12-02] MEDS: Lithium Carbonate ER 450 MG TABLET.ER 900 MG PO (20:03)
[2021-12-02] MEDS: Divalproex Sodium ER 500 MG TAB.ER.24H 1500 MG PO (20:05)
[2021-12-02] MEDS: OLANZapine ODT 10 MG TAB.RAPDIS 20 MG TRANSLINGU (21:49)
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
[2021-12-03 17:15] VITALS: BP 109/55; PULSE 86; TEMP 36.8
[2021-12-03] MEDS: Divalproex Sodium ER 500 MG TAB.ER.24H 1500 MG PO (22:34)
[2021-12-03] MEDS: OLANZapine ODT 10 MG TAB.RAPDIS 15 MG TRANSLINGU (22:35)
[2021-12-03] MEDS: Lithium Carbonate ER 450 MG TABLET.ER 900 MG PO (22:36)
[2021-12-04 12:03] VITALS: BP 104/60; PULSE 92; RESP 18; TEMP 36.6; O2SAT 99
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
[2021-12-04 22:00] VITALS: BP 112/65; PULSE 83; TEMP 36.8
[2021-12-04] MEDS: Divalproex Sodium ER 500 MG TAB.ER.24H 1500 MG PO (22:03)
[2021-12-04] MEDS: Lithium Carbonate ER 450 MG TABLET.ER 900 MG PO (22:05)
[2021-12-04] MEDS: OLANZapine ODT 10 MG TAB.RAPDIS 15 MG TRANSLINGU (22:05)
[2021-12-05 08:05] VITALS: BP 97/61; PULSE 68; RESP 18; TEMP 37; O2SAT 99
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
[2021-12-05 17:00] VITALS: BP 104/71; PULSE 79; TEMP 37.1
[2021-12-05] MEDS: Divalproex Sodium ER 500 MG TAB.ER.24H 1500 MG PO (22:11)
[2021-12-05] MEDS: OLANZapine ODT 10 MG TAB.RAPDIS 15 MG TRANSLINGU (22:12)
[2021-12-05] MEDS: Lithium Carbonate ER 450 MG TABLET.ER 900 MG PO (22:13)
[2021-12-06 06:00] VITALS: BP 98/59; PULSE 69; RESP 15; TEMP 36.7; O2SAT 99
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
[2021-12-06 17:35] VITALS: BP 106/78; PULSE 77; TEMP 36.8
[2021-12-06] MEDS: Divalproex Sodium ER 500 MG TAB.ER.24H 1500 MG PO (22:53)
[2021-12-06] MEDS: Lithium Carbonate ER 450 MG TABLET.ER 900 MG PO (22:54)
[2021-12-06] MEDS: OLANZapine ODT 10 MG TAB.RAPDIS 15 MG TRANSLINGU (22:54)
[2021-12-07 09:22] LABS: Lithium 0.89 mmol/L (0.60-1.20)
[2021-12-07 09:31] LABS: Blood Urea Nitrogen 13 mg/dL (9-16); Creatinine Clr Calc Pharmacy 97.5; Estimated Glomerular Filt Rate > 60
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
[2021-12-07 18:00] VITALS: BP 112/75; PULSE 86; TEMP 36.9; O2SAT 99
[2021-12-07] MEDS: Lithium Carbonate ER 450 MG TABLET.ER 900 MG PO (22:09)
[2021-12-07] MEDS: OLANZapine ODT 10 MG TAB.RAPDIS 15 MG TRANSLINGU (22:09)
[2021-12-07] MEDS: Divalproex Sodium ER 500 MG TAB.ER.24H 1500 MG PO (22:10)
[2021-12-08 09:28] VITALS: BP 123/81; PULSE 71; RESP 18; TEMP 36.7; O2SAT 95
[2021-12-08 17:05] VITALS: BP 109/63; PULSE 85; TEMP 37.1
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
[2021-12-08] MEDS: Divalproex Sodium ER 500 MG TAB.ER.24H 1500 MG PO (22:48)
[2021-12-08] MEDS: Lithium Carbonate ER 450 MG TABLET.ER 900 MG PO (22:51)
[2021-12-08] MEDS: OLANZapine ODT 10 MG TAB.RAPDIS 5 MG TRANSLINGU (23:00)
[2021-12-09 08:17] VITALS: PULSE 79; RESP 18; TEMP 36.9; O2SAT 100
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
[2021-12-09 16:20] VITALS: BP 98/56; PULSE 71; TEMP 36.8
[2021-12-09] MEDS: Divalproex Sodium ER 500 MG TAB.ER.24H 1500 MG PO (21:51)
[2021-12-09] MEDS: Lithium Carbonate ER 450 MG TABLET.ER 900 MG PO (21:51)
[2021-12-10 08:17] VITALS: BP 89/57; PULSE 79; RESP 16; TEMP 37.3; O2SAT 100
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
[2021-12-10] MEDS: Ziprasidone 20 MG CAPSULE PO ×2 (14:48→17:38)
[2021-12-10 18:46] VITALS: BP 100/59; PULSE 83; TEMP 36.4
[2021-12-10] MEDS: Lithium Carbonate ER 450 MG TABLET.ER 900 MG PO (21:52)
[2021-12-10] MEDS: Divalproex Sodium ER 500 MG TAB.ER.24H 1500 MG PO (21:52)
[2021-12-11] MEDS: Ziprasidone 20 MG CAPSULE PO ×2 (08:44→16:08)
[2021-12-11 08:48] VITALS: BP 121/61; PULSE 79; RESP 18; TEMP 36.9; O2SAT 99
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
[2021-12-11 16:59] VITALS: BP 121/82; PULSE 82; RESP 16; TEMP 36.7; O2SAT 100
[2021-12-11] MEDS: Divalproex Sodium ER 500 MG TAB.ER.24H 1500 MG PO (19:34)
[2021-12-11] MEDS: Lithium Carbonate ER 450 MG TABLET.ER 900 MG PO (19:35)
[2021-12-12] MEDS: Ziprasidone 20 MG CAPSULE PO (08:57)
[2021-12-12 11:00] VITALS: BP 97/50; PULSE 74; RESP 18; TEMP 36.5; O2SAT 99
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
[2021-12-12 18:00] VITALS: BP 128/83; PULSE 82; RESP 16; TEMP 36.5; O2SAT 99
[2021-12-12] MEDS: Ziprasidone 40 MG CAPSULE PO (18:41)
[2021-12-12] MEDS: Lithium Carbonate ER 450 MG TABLET.ER 900 MG PO (19:54)
[2021-12-12] MEDS: Divalproex Sodium ER 500 MG TAB.ER.24H 1500 MG PO (19:54)
[2021-12-13] MEDS: Ziprasidone 40 MG CAPSULE PO ×2 (08:09→18:57)
[2021-12-13 08:20] VITALS: BP 111/73; PULSE 68; RESP 14; TEMP 36.6; O2SAT 99
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
[2021-12-13 22:00] VITALS: BP 109/63; PULSE 68; TEMP 36.9
[2021-12-13] MEDS: Divalproex Sodium ER 500 MG TAB.ER.24H 1500 MG PO (22:58)
[2021-12-13] MEDS: Lithium Carbonate ER 450 MG TABLET.ER 900 MG PO (22:59)
[2021-12-14] MEDS: hydrOXYzine HCL 25 MG TABLET PO (06:07)
[2021-12-14 08:08] VITALS: BP 102/57; PULSE 73; RESP 16; TEMP 36.9; O2SAT 99
[2021-12-14] MEDS: Ziprasidone 40 MG CAPSULE PO ×2 (09:02→17:59)
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
[2021-12-14 18:05] VITALS: BP 105/67; PULSE 68; TEMP 36.9
[2021-12-14] MEDS: Divalproex Sodium ER 500 MG TAB.ER.24H 1500 MG PO (21:58)
[2021-12-14] MEDS: Lithium Carbonate ER 450 MG TABLET.ER 900 MG PO (21:58)
[2021-12-14] MEDS: traZODone HCL 50 MG TABLET PO (22:06)
[2021-12-15 08:17] VITALS: BP 99/63; PULSE 66; RESP 18; TEMP 36.3; O2SAT 100
--- NOTE | 2021-12-15 09:00 | ECG_ITS ---
Test Reason : QTC monitor Blood Pressure : / mmHG Vent. Rate : 063 BPM Atrial Rate : 063 BPM P-R Int : 122 ms QRS Dur : 080 ms QT Int : 420 ms P-R-T Axes : 026 037 017 degrees QTc Int : 429 ms Normal sinus rhythm Nonspecific T wave abnormality Abnormal ECG No previous ECGs available Referred By: Aj Oneill Electronically Signed By:KODAK SALEH MD
[2021-12-15] MEDS: Ziprasidone 40 MG CAPSULE PO (09:08)
[2021-12-15 09:57] LABS: Lithium 0.64 mmol/L (0.60-1.20)
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
[2021-12-15 17:30] VITALS: BP 100/62; PULSE 63; RESP 16; TEMP 36.6; O2SAT 99
[2021-12-15] MEDS: Ziprasidone 60 MG CAPSULE PO (17:46)
[2021-12-15] MEDS: Lithium Carbonate ER 450 MG TABLET.ER 900 MG PO (19:41)
[2021-12-15] MEDS: Divalproex Sodium ER 500 MG TAB.ER.24H 1500 MG PO (19:42)
[2021-12-15] MEDS: traZODone HCL 50 MG TABLET PO ×2 (20:33→23:41)
[2021-12-15] MEDS: OLANZapine ODT 10 MG TAB.RAPDIS 5 MG TRANSLINGU (23:42)
[2021-12-16] MEDS: traZODone HCL 50 MG TABLET PO (01:55)
[2021-12-16] MEDS: hydrOXYzine HCL 25 MG TABLET PO (01:56)
--- NOTE | 2021-12-16 03:31 | PC.NURSE ---
on 12/15/21 pt was given 50mg prn trazadone. pt was given ordered repeat dose later on 12/15/21. on 12/16/21 pt was given another dose, making 3 doses instead of the prescribed 2 doses. pt is stable. incident report completed. director , , and clinical coordinator made aware.
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
[2021-12-16 18:00] VITALS: BP 108/66; PULSE 89; RESP 16; TEMP 36.4; O2SAT 99
[2021-12-16] MEDS: Divalproex Sodium ER 500 MG TAB.ER.24H 1500 MG PO (20:25)
[2021-12-16] MEDS: Lithium Carbonate ER 450 MG TABLET.ER 900 MG PO (20:25)
[2021-12-16] MEDS: OLANZapine 10 MG TABLET PO (20:25)
[2021-12-16] MEDS: Melatonin 3 MG TABLET PO (20:26)
[2021-12-17 09:39] VITALS: BP 92/68; PULSE 74; RESP 18; TEMP 36.4; O2SAT 96
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
[2021-12-17 16:14] VITALS: BP 117/58; PULSE 83; TEMP 37.1; O2SAT 100
[2021-12-17] MEDS: Melatonin 3 MG TABLET PO (22:31)
[2021-12-17] MEDS: Lithium Carbonate ER 450 MG TABLET.ER 900 MG PO (22:31)
[2021-12-17] MEDS: OLANZapine 10 MG TABLET PO (22:31)
[2021-12-17] MEDS: Divalproex Sodium ER 500 MG TAB.ER.24H 1500 MG PO (22:31)
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
[2021-12-18 10:12] VITALS: BP 118/65; PULSE 84; RESP 18; TEMP 37; O2SAT 100
[2021-12-18 17:00] VITALS: BP 107/70; PULSE 73; TEMP 36.1
[2021-12-18] MEDS: Divalproex Sodium ER 500 MG TAB.ER.24H 1500 MG PO (23:12)
[2021-12-18] MEDS: Lithium Carbonate ER 450 MG TABLET.ER 900 MG PO (23:13)
[2021-12-18] MEDS: OLANZapine 10 MG TABLET PO (23:13)
[2021-12-18] MEDS: Melatonin 3 MG TABLET PO (23:14)
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
[2021-12-19 11:00] VITALS: BP 121/67; PULSE 88; RESP 18; TEMP 36.5; O2SAT 99
[2021-12-19 16:35] VITALS: BP 102/59; PULSE 78; TEMP 36.4
[2021-12-19] MEDS: Divalproex Sodium ER 500 MG TAB.ER.24H 1500 MG PO (22:14)
[2021-12-19] MEDS: Melatonin 3 MG TABLET PO (22:14)
[2021-12-19] MEDS: Lithium Carbonate ER 450 MG TABLET.ER 900 MG PO (22:14)
[2021-12-19] MEDS: OLANZapine 10 MG TABLET PO (22:15)
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
[2021-12-20 19:35] VITALS: BP 109/60; PULSE 75; TEMP 36.4
[2021-12-20] MEDS: Divalproex Sodium ER 500 MG TAB.ER.24H 1500 MG PO (21:56)
[2021-12-20] MEDS: Melatonin 3 MG TABLET PO (21:56)
[2021-12-20] MEDS: Lithium Carbonate ER 450 MG TABLET.ER 900 MG PO (21:57)
[2021-12-20] MEDS: OLANZapine 10 MG TABLET PO (21:57)
[2021-12-21 08:15] VITALS: BP 118/56; PULSE 65; RESP 18; TEMP 36.5; O2SAT 100
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
[2021-12-21 16:54] VITALS: BP 91/54; PULSE 75; TEMP 36.4; O2SAT 100
[2021-12-21] MEDS: OLANZapine 10 MG TABLET PO (22:25)
[2021-12-21] MEDS: Divalproex Sodium ER 500 MG TAB.ER.24H 1500 MG PO (22:25)
[2021-12-21] MEDS: Lithium Carbonate ER 450 MG TABLET.ER 900 MG PO (22:25)
[2021-12-21] MEDS: Melatonin 3 MG TABLET PO (22:26)
[2021-12-22 06:00] VITALS: BP 125/82; PULSE 92; RESP 18
--- NOTE | 2021-12-22 09:56 | P.PNPSI_ITS ---
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 include: Depakote Haldol Zyprexa up to 40mg Geodon lithium Ativan I spent minutes with the patient and/or on the patient floor today, greater than?50% of which was spent counseling/coordinating care. Patient educated on: diagnosis and medication risk/benefits Informed Consent: understands, does not understand and further education needed Reason for contiued inpatient stay Substantial Risk for: inability to function
[2021-12-22 18:19] VITALS: BP 120/63; PULSE 77; RESP 18; TEMP 36.5; O2SAT 98
[2021-12-22] MEDS: Divalproex Sodium ER 500 MG TAB.ER.24H 1500 MG PO (22:39)
[2021-12-22] MEDS: Lithium Carbonate ER 450 MG TABLET.ER 900 MG PO (22:39)
[2021-12-22] MEDS: OLANZapine 10 MG TABLET PO (22:39)
[2021-12-22] MEDS: Melatonin 3 MG TABLET PO (22:40)
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
[2021-12-23 17:20] VITALS: BP 100/55; PULSE 77; RESP 16; TEMP 37; O2SAT 99
[2021-12-23] MEDS: Lithium Carbonate ER 450 MG TABLET.ER 900 MG PO (22:58)
[2021-12-23] MEDS: Divalproex Sodium ER 500 MG TAB.ER.24H 1500 MG PO (23:00)
[2021-12-23] MEDS: OLANZapine 10 MG TABLET PO (23:00)
[2021-12-23] MEDS: Melatonin 3 MG TABLET PO (23:00)
[2021-12-24 06:00] VITALS: BP 128/70; PULSE 88; RESP 14; TEMP 36.1; O2SAT 98
--- NOTE | 2021-12-24 16:14 | P.PNPSI_ITS ---
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 put IM if refuses; hoping to get patient to agree on own rather than force Continue Zyprexa 10 mg q.h.s.; even though minimally effective, was better than ziprasidone. Will restart Zyprexa for now with eye to trial of Haldol. QTC WNL 2. [place]: CONTINUE [place] ER 900mg qhs for continued hypomania; returned to [facility]; (COURT ORDERED:? GIVE ZYPREXA IMIF REFUSES). Dec lithium ER to 450 mg due to sedation. -DO NOT LOWER LITHIUM DOSE; She has been floridly manic for a year; sometimes mistakes normal functioning for sedation -[place] level/TSH/BUN/creatinine WnL 3. Depakote: Continue Depakote ER 1500mg q.h.s. (COURT ORDERED:? GIVE ZYPREXA IM 10 MG IF REFUSES) -Valproic level: 77.3; repeated on 12/14 and Wnl -liver/ammonia: WNL -patient now willing to interact with technical report writer and discuss treatment; prior to today patient refused to directly talk with technical report writer despite daily attemps; technical report writer continues to daily assess patient by over hearing her talk to others peers and staff, observing her in the milieu and getting reports by multiple staff members Approved medications for substitute judgment include: Haldol Zyprexa up to 40mg: partiall effective Geodon: Not Effective Depakote: Effective lithium: Effective Ativan I spent minutes with the patient and/or on the patient floor today, gr eater than?50% of which was spent counseling/coordinating care. Patient educated on: diagnosis and medication risk/benefits Informed Consent: understands, does not understand and further education needed Reason for contiued inpatient stay Substantial Risk for: inability to function
[2021-12-24 18:00] VITALS: BP 119/67; PULSE 101; TEMP 37.2; O2SAT 98
[2021-12-24] MEDS: Divalproex Sodium ER 500 MG TAB.ER.24H 1500 MG PO (23:01)
[2021-12-24] MEDS: Melatonin 3 MG TABLET PO (23:02)
[2021-12-24] MEDS: HaloperidoL 5 MG TABLET PO (23:02)
[2021-12-24] MEDS: Lithium Carbonate ER 450 MG TABLET.ER 900 MG PO (23:03)
[2021-12-24] MEDS: OLANZapine 10 MG TABLET PO (23:04)
[2021-12-25 06:00] VITALS: BP 121/67; PULSE 83; TEMP 37.3; O2SAT 98
[2021-12-25] MEDS: HaloperidoL 5 MG TABLET PO ×2 (11:28→22:32)
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
[2021-12-25 18:00] VITALS: BP 113/65; PULSE 84; TEMP 37.2
[2021-12-25] MEDS: Lithium Carbonate ER 450 MG TABLET.ER 900 MG PO (22:31)
[2021-12-25] MEDS: OLANZapine 10 MG TABLET PO (22:31)
[2021-12-25] MEDS: Melatonin 3 MG TABLET PO (22:31)
[2021-12-25] MEDS: Divalproex Sodium ER 500 MG TAB.ER.24H 1500 MG PO (22:32)
[2021-12-26 07:30] VITALS: BP 109/61; PULSE 77; RESP 16; TEMP 36.4; O2SAT 99
[2021-12-26] MEDS: HaloperidoL 5 MG TABLET PO ×2 (08:56→22:28)
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
[2021-12-26 17:19] VITALS: BP 112/71; PULSE 72; TEMP 36.6; O2SAT 100
[2021-12-26] MEDS: Lithium Carbonate ER 450 MG TABLET.ER 900 MG PO (22:28)
[2021-12-26] MEDS: Melatonin 3 MG TABLET PO (22:28)
[2021-12-26] MEDS: Divalproex Sodium ER 500 MG TAB.ER.24H 1500 MG PO (22:28)
[2021-12-26] MEDS: OLANZapine 10 MG TABLET PO (22:28)
--- NOTE | 2021-12-27 08:56 | HO.PSYCHPN ---
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 convesation. 12/25/21: no changes 12/26/21: change haldol from 5 bid to 10mg at bedtime starting 12/27. Will get 5mg tonight- as received AM dose of 5mg 12/27 Patient has improved.? She consistently says she likes the medication she is on including Zyprexa. ?And fiction writer agrees that this regimen has been helpful.? Patient has been on Haldol for 3 days. ?While fiction writer continues to wonder if haloperidol would further reduce her paranoid delusions, there is no guarantee it would do so; and while this medication could be forced as court order exists, it would certainly damage the therapeutic rapport that is been so difficult to create. ?At this time, it is fiction writer's opinion that it is best to continue to align with patient and support the therapeutic relationship as she will need long-term psychiatric guidance which necessitates her having jacob in provider-patient therapeutic [place]. -Application has been made to [facility].? Team will continue to discuss whether patient continues to need this longer term admission or if she could perhaps try living in the community. PLAN: [address] Q 15 minute checks on 11/04 Court ordered involuntary commitment and substituted judgment -Zyprexa 10 mg IM p.r.n. if refuses Depakote/lithium/zyprexa 1. Antipsychotic: DISCONTINUE Haldol: although court ordered, pt c/o side-effects and though these side-effects are mild (or non-existent), pt feels strongly that Zyprexa works much better and asks for Haldol to be removed. Continue Zyprexa 10 mg q.h.s.; even though minimally effective, was better than ziprasidone. Will restart Zyprexa for now with eye to trial of Haldol. QTC WNL 2. [place]: CONTINUE [place] ER 900mg qhs for continued hypomania; returned to Lithobid; (COURT ORDERED:? GIVE ZYPREXA IMIF REFUSES). Dec lithium ER to 450 mg due to sedation. -DO NOT LOWER LITHIUM DOSE; She has been floridly manic for a year; sometimes mistakes normal functioning for sedation -[place] level/TSH/BUN/creatinine WnL 3. Depakote: Continue Depakote ER 1500mg q.h.s. (COURT ORDERED:? GIVE ZYPREXA IM 10 MG IF REFUSES) -Valproic level: 77.3; repeated on 12/14 and Wnl -liver/ammonia: WNL -patient now willing to interact with fiction writer and discuss treatment; prior to today patient refused to directly talk with fiction writer despite daily attemps; fiction writer continues to daily assess patient by over hearing her talk to others peers and staff, observing her in the milieu and getting reports by multiple staff members Approved medications for substitute judgment include: Haldol Zyprexa up to 40mg: partiall effective Geodon: Not Effective Depakote: Effective lithium: Effective Ativan I spent minutes with the patient and/or on the patient floor today, greater than?50% of which was spent counseling/coordinating care. Patient educated on: diagnosis and medication risk/benefits Informed Consent: understands, does not understand and further education needed Reason for contiued inpatient stay Substantial Risk for: inability to function and rapid decompensation
[2021-12-27 13:00] VITALS: BP 100/55; PULSE 74; RESP 18; TEMP 36.4; O2SAT 98
[2021-12-27 18:00] VITALS: BP 118/68; PULSE 72; TEMP 36.6
[2021-12-27] MEDS: Melatonin 3 MG TABLET PO (22:35)
[2021-12-27] MEDS: Divalproex Sodium ER 500 MG TAB.ER.24H 1500 MG PO (22:35)
[2021-12-27] MEDS: Lithium Carbonate ER 450 MG TABLET.ER 900 MG PO (22:35)
[2021-12-27] MEDS: OLANZapine 10 MG TABLET PO (22:35)
[2021-12-28 06:00] VITALS: BP 109/56; PULSE 60; RESP 14; TEMP -13.3; TEMP 8; O2SAT 100
[2021-12-28 16:10] VITALS: BP 101/59; PULSE 75; TEMP 36.6
[2021-12-28] MEDS: OLANZapine 10 MG TABLET PO (22:40)
[2021-12-28] MEDS: Divalproex Sodium ER 500 MG TAB.ER.24H 1500 MG PO (22:40)
[2021-12-28] MEDS: Lithium Carbonate ER 450 MG TABLET.ER 900 MG PO (22:40)
[2021-12-28] MEDS: Melatonin 3 MG TABLET PO (22:41)
--- NOTE | 2021-12-29 09:29 | P.PNPSI_ITS ---
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 lyric writer's opinion that it is best to continue to align with patient and support the therapeutic relationship as she will need long-term psychiatric guidance which necessitates her having jacob in provider- patient therapeutic [place]. -Application has been made to [facility].? Team will continue to discuss whether patient continues to need this longer term admission or if she could perhaps try living in the community. PLAN: [address] Q 15 minute checks on 11/04 Court ordered involuntary commitment and substituted judgment -Zyprexa 10 mg IM p.r.n. if refuses Depakote/lithium/zyprexa 1. Antipsychotic: DISCONTINUE Haldol: although court ordered, pt c/o side-effects and though these side-effects are mild (or non-existent), pt feels strongly that Zyprexa works much better and asks for Haldol to be removed. Continue Zyprexa 10 mg q.h.s.; even though minimally effective, was better than ziprasidone. Will restart Zyprexa for now with eye to trial of Haldol. QTC WNL 2. [place]: CONTINUE [place] ER 900mg qhs for continued hypomania; returned to [facility]; (COURT ORDERED:? GIVE ZYPREXA IMIF REFUSES). Dec lithium ER to 450 mg due to sedation. -DO NOT LOWER LITHIUM DOSE; She has been floridly manic for a year; sometimes mistakes normal functioning for sedation -[place] level/TSH/BUN/creatinine WnL 3. Depakote: Continue Depakote ER 1500mg q.h.s. (COURT ORDERED:? GIVE ZYPREXA IM 10 MG IF REFUSES) -Valproic level: 77.3; repeated on 12/14 and Wnl -liver/ammonia: WNL -patient now willing to interact with lyric writer and discuss treatment; prior to today patient refused to directly talk with lyric writer despite daily attemps; lyric writer continues to daily assess patient by over hearing her talk to others peers and staff, observing her in the milieu and getting reports by multiple staff members Approved medications for substitute judgment include: Haldol Zyprexa up to 40mg: partiall effective Geodon: Not Effective Depakote: Effective lithium: Effective Ativan I spent minutes with the patient and/or on the patient floor today, greater than?50% of which was spent counseling/coordinating care. Patient educated on: diagnosis and therapeutic strategies Informed Consent: understands, does not understand and further education needed Reason for contiued inpatient stay Substantial Risk for: rapid decompensation and med/psych decompensation
--- NOTE | 2021-12-29 09:35 | HO.PSYCHPN ---
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 create. ?At this time, it is automobile service writer's opinion that it is best to continue to align with patient and support the therapeutic relationship as she will need long-term psychiatric guidance which necessitates her having jacob in provider-patient therapeutic [place]. -Application has been made to [facility].? Team will continue to discuss whether patient continues to need this longer term admission or if she could perhaps try living in the community. 12/29 continue current treatment plan PLAN: [address] Q 15 minute checks on 11/04 Court ordered involuntary commitment and substituted judgment -Zyprexa 10 mg IM p.r.n. if refuses Depakote/lithium/zyprexa 1. Antipsychotic: DISCONTINUE Haldol: although court ordered, pt c/o side-effects and though these side-effects are mild (or non-existent), pt feels strongly that Zyprexa works much better and asks for Haldol to be removed. Continue Zyprexa 10 mg q.h.s.; even though minimally effective, was better than ziprasidone. Will restart Zyprexa for now with eye to trial of Haldol. QTC WNL 2. Wright: CONTINUE Wright ER 900mg qhs for continued hypomania; returned to Lithobid; (COURT ORDERED:? GIVE ZYPREXA IMIF REFUSES). Dec lithium ER to 450 mg due to sedation. -DO NOT LOWER LITHIUM DOSE; She has been floridly manic for a year; sometimes mistakes normal functioning for sedation -Wright level/TSH/BUN/creatinine WnL 3. Depakote: Continue Depakote ER 1500mg q.h.s. (COURT ORDERED:? GIVE ZYPREXA IM 10 MG IF REFUSES) -Valproic level: 77.3; repeated on 12/14 and Wnl -liver/ammonia: WNL -patient now willing to interact with automobile service writer and discuss treatment; prior to today patient refused to directly talk with automobile service writer despite daily attemps; automobile service writer continues to daily assess patient by over hearing her talk to others peers and staff, observing her in the milieu and getting reports by multiple staff members Approved medications for substitute judgment include: Haldol Zyprexa up to 40mg: partiall effective Geodon: Not Effective Depakote: Effective lithium: Effective Ativan I spent minutes with the patient and/or on the patient floor today, greater than?50% of which was spent counseling/coordinating care. Patient educated on: diagnosis and therapeutic strategies Informed Consent: understands and further education needed Reason for contiued inpatient stay Substantial Risk for: med/psych decompensation
[2021-12-29 18:00] VITALS: BP 128/78; PULSE 89; RESP 16; TEMP 36.5; O2SAT 98
[2021-12-29] MEDS: Lithium Carbonate ER 450 MG TABLET.ER 900 MG PO (19:18)
[2021-12-29] MEDS: Divalproex Sodium ER 500 MG TAB.ER.24H 1500 MG PO (19:18)
[2021-12-29] MEDS: Melatonin 3 MG TABLET PO ×2 (19:19→23:05)
[2021-12-29] MEDS: OLANZapine 10 MG TABLET PO (19:19)
[2021-12-29] MEDS: traZODone HCL 50 MG TABLET PO (23:05)
--- NOTE | 2021-12-30 08:13 | P.PNPSI_ITS ---
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 to [facility].? Team will continue to discuss whether patient continues to need this longer term admission or if she could perhaps try living in the community. 12/29 continue current treatment plan 12/30 continue tx. increase melatonin to 6mg po qhs per pt request. PLAN: [address] Q 15 minute checks on 11/04 Court ordered involuntary commitment and substituted judgment -Zyprexa 10 mg IM p.r.n. if refuses Depakote/lithium/zyprexa 1. Antipsychotic: DISCONTINUE Haldol: although court ordered, pt c/o side-effects and though these side-effects are mild (or non-existent), pt feels strongly that Zyprexa works much better and asks for Haldol to be removed. Continue Zyprexa 10 mg q.h.s.; even though minimally effective, was better than ziprasidone. Will restart Zyprexa for now with eye to trial of Haldol. QTC WNL 2. [place]: CONTINUE [place] ER 900mg qhs for continued hypomania; returned to Lithob[facility]; (COURT ORDERED:? GIVE ZYPREXA IMIF REFUSES). Dec lithium ER to 450 mg due to sedation. -DO NOT LOWER LITHIUM DOSE; She has been floridly manic for a year; sometimes mistakes normal functioning for sedation -[place] level/TSH/BUN/creatinine WnL 3. Depakote: Continue Depakote ER 1500mg q.h.s. (COURT ORDERED:? GIVE ZYPREXA IM 10 MG IF REFUSES) -Valproic level: 77.3; repeated on 12/14 and Wnl -liver/ammonia: WNL -patient now willing to interact with telegraphic typewriter operator and discuss treatment; prior to today patient refused to directly talk with telegraphic typewriter operator despite daily attemps; telegraphic typewriter operator continues to daily assess patient by over hearing her talk to others peers and staff, observing her in the milieu and getting reports by multiple staff members Approved medications for substitute judgment include: Haldol Zyprexa up to 40mg: partiall effective Geodon: Not Effective Depakote: Effective lithium: Effective Ativan I spent minutes with the patient and/or on the patient floor today, greater than?50% of which was spent counseling/coordinating care. Reason for contiued inpatient stay Substantial Risk for: inability to function
[2021-12-30 10:10] VITALS: BP 124/81; PULSE 94; RESP 18; TEMP 36.4; O2SAT 97
[2021-12-30 18:00] VITALS: BP 110/58; PULSE 72; TEMP 37.2; O2SAT 100
[2021-12-30] MEDS: Melatonin 3 MG TABLET PO ×2 (22:25→22:34)
[2021-12-30] MEDS: Divalproex Sodium ER 500 MG TAB.ER.24H 1500 MG PO (22:25)
[2021-12-30] MEDS: Lithium Carbonate ER 450 MG TABLET.ER 900 MG PO (22:26)
[2021-12-30] MEDS: OLANZapine 10 MG TABLET PO (22:26)
--- NOTE | 2021-12-31 11:31 | HO.PSYCHPN ---
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 ZYPREXA IM 10 MG IF REFUSES) -Valproic level: 77.3; repeated on 12/14 and Wnl -liver/ammonia: WNL -patient now willing to interact with caption writer and discuss treatment; prior to today patient refused to directly talk with caption writer despite daily attemps; caption writer continues to daily assess patient by over hearing her talk to others peers and staff, observing her in the milieu and getting reports by multiple staff members Approved medications for substitute judgment include: Haldol Zyprexa up to 40mg: partiall effective Geodon: Not Effective Depakote: Effective lithium: Effective Ativan I spent ___25___ minutes with the patient and/or on the patient floor today, greater than?50% of which was spent counseling/coordinating care. Patient educated on: diagnosis and medication risk/benefits Reason for contiued inpatient stay Substantial Risk for: inability to function and rapid decompensation
[2021-12-31 14:00] VITALS: BP 106/55; PULSE 77; TEMP 36.6
[2021-12-31 18:57] VITALS: BP 98/54; PULSE 74; RESP 16; TEMP 36.4; O2SAT 97
[2021-12-31 20:19] LABS: MANUAL DIFF FLAG NO
[2021-12-31 20:20] LABS: Basophils Absolute Auto 0.1 X10*3/uL (0.0-0.2); Basophils Percent Auto 1.2 % (0-2); Eosinophils Absolute Auto 0.1 X10*3/uL (0.0-0.4); Eosinophils Percent Auto 1.5 % (0-4); Hematocrit 38.1 % (37.0-47.0); Hemoglobin 12.3 g/dl (12.0-16.0); Imm Gran Abs Auto 0.12 X10*3/uL (0.00-0.03); Imm Gran Pct Auto 1.3 % (0.0-0.4); Lymphocytes Absolute Auto 2.5 X10*3/uL (1.2-4.9); Lymphocytes Percent Auto 25.7 % (20-40); Mean Corpuscular HGB Conc 32.3 g/dl (31.0-35.0); Mean Corpuscular Hemoglobin 31.1 pg (27.0-33.0); Mean Corpuscular Volume 96.5 fL (80.0-98.0); Mean Platelet Volume 9.3 fL (9.4-12.3); Monocytes Absolute Auto 0.9 X10*3/uL (0.1-1.2); Monocytes Percent Auto 9.6 % (2-11); Neutrophils Absolute Auto 5.8 x10*3/uL (2.0-8.3); Neutrophils Percent Auto 60.7 % (45-73); Platelet Count 242 X10*3/uL (160-400); Red Blood Count 3.95 X10*6/uL (4.20-5.50); White Blood Count 9.6 X10*3/uL (4.8-10.8)
[2021-12-31 20:45] LABS: Alanine Aminotransferase 7 U/L (0-31); Albumin Level 3.9 g/dL (3.5-5.0); Alkaline Phosphatase 41 U/L (39-117); Anion Gap 13 (12-20); Aspartate Amino Transferase 8 U/L (5-31); Bilirubin Direct < 0.2 mg/dL (0.0-0.5); Bilirubin Total 0.3 mg/dL (0.0-1.0); Blood Urea Nitrogen 18 mg/dL (9-16); Calcium 8.8 mg/dL (8.4-10.2); Carbon Dioxide 24 mmol/L (22-29); Chloride 105 mmol/L (96-108); Creatinine Clr Calc Pharmacy 82.1; Estimated Glomerular Filt Rate > 60; Glucose Random 91 mg/dL (60-115); Potassium 4.4 mmol/L (3.3-5.1); Sodium 138 mmol/L (135-145); Total Protein 6.9 g/dL (6.5-8.0)
[2021-12-31 21:00] LABS: Lithium 0.41 mmol/L (0.60-1.20)
[2021-12-31 21:03] LABS: Valproate 50.3 mcg/mL (50.0-100.0)
[2021-12-31] MEDS: Melatonin 3 MG TABLET 9 MG PO (21:20)
[2021-12-31] MEDS: Lithium Carbonate ER 450 MG TABLET.ER 900 MG PO (21:21)
[2021-12-31] MEDS: OLANZapine 10 MG TABLET PO (21:21)
[2021-12-31] MEDS: Divalproex Sodium ER 500 MG TAB.ER.24H 1500 MG PO (21:27)
[2022-01-01 09:42] VITALS: BP 100/67; PULSE 70; RESP 18; TEMP 36.6; O2SAT 100
--- NOTE | 2022-01-01 10:35 | HO.PSYCHPN ---
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 certainly damage the therapeutic rapport that is been so difficult to create. ?At this time, it is communications writer's opinion that it is best to continue to align with patient and support the therapeutic relationship as she will need long-term psychiatric guidance which necessitates her having jacob in provider-patient therapeutic [place]. -Application has been made to [facility].? Team will continue to discuss whether patient continues to need this longer term admission or if she could perhaps try living in the community. 12/29 continue current treatment plan 12/30 continue tx. increase melatonin to 6mg po qhs per pt request. 12/31: incr melatonin to 9 mg per pt request. educated re possibility her insomnia is lingering manic Sx and that perhaps higher dosing/serum levels of lithium and/or VPA may be more helpful for her (she was referred to discuss with attending neftali when he returns). otherwise continue current mgmt. 01/01: Will increase Melatonin to 12 mg. Consider increasing dose of her mood stabilizers. PLAN: [address] court Q 15 minute checks on 11/04 Court ordered involuntary commitment and substituted judgment -Zyprexa 10 mg IM p.r.n. if refuses Depakote/lithium/zyprexa 1. Antipsychotic: DISCONTINUE Haldol: although court ordered, pt c/o side-effects and though these side-effects are mild (or non-existent), pt feels strongly that Zyprexa works much better and asks for Haldol to be removed. Continue Zyprexa 10 mg q.h.s.; even though minimally effective, was better than ziprasidone. Will restart Zyprexa for now with eye to trial of Haldol. QTC WNL 2. Kadoka: CONTINUE [place] ER 900mg qhs for continued hypomania; returned to Lith[facility]; (COURT ORDERED:? GIVE ZYPREXA IMIF REFUSES). Dec lithium ER to 450 mg due to sedation. -DO NOT LOWER LITHIUM DOSE; She has been floridly manic for a year; sometimes mistakes normal functioning for sedation -[place] level/TSH/BUN/creatinine WnL 3. Depakote: Continue Depakote ER 1500mg q.h.s. (COURT ORDERED:? GIVE ZYPREXA IM 10 MG IF REFUSES) -Valproic level: 77.3; repeated on 12/14 and Wnl -liver/ammonia: WNL -patient now willing to interact with communications writer and discuss treatment; prior to today patient refused to directly talk with communications writer despite daily attemps; communications writer continues to daily assess patient by over hearing her talk to others peers and staff, observing her in the milieu and getting reports by multiple staff members Approved medications for substitute judgment include: Haldol Zyprexa up to 40mg: partiall effective Geodon: Not Effective Depakote: Effective lithium: Effective Ativan I spent minutes with the patient and/or on the patient floor today, greater than?50% of which was spent counseling/coordinating care. Reason for contiued inpatient stay Substantial Risk for: harm to self, inability to function and rapid decompensation
[2022-01-01 16:45] VITALS: BP 114/59; PULSE 76; TEMP 36.3
[2022-01-01] MEDS: Melatonin 3 MG TABLET 12 MG PO (22:41)
[2022-01-01] MEDS: Divalproex Sodium ER 500 MG TAB.ER.24H 1500 MG PO (22:41)
[2022-01-01] MEDS: OLANZapine 10 MG TABLET PO (22:42)
[2022-01-01] MEDS: Lithium Carbonate ER 450 MG TABLET.ER 900 MG PO (22:42)
[2022-01-02 11:00] VITALS: BP 111/68; PULSE 88; RESP 18; TEMP 36.3; O2SAT 98
--- NOTE | 2022-01-02 11:40 | P.PNPSI_ITS ---
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 haloperidol would further reduce her paranoid delusions, there is no guarantee it would do so; and while this medication could be forced as court order exists, it would certainly damage the therapeutic rapport that is been so difficult to create. ?At this time, it is technical report writer's opinion that it is best to continue to align with patient and support the therapeutic relationship as she will need long-term psychiatric guidance which necessitates her having jacob in provider- patient therapeutic [place]. -Application has been made to [facility].? Team will continue to discuss whether patient continues to need this longer term admission or if she could perhaps try living in the community. 12/29 continue current treatment plan 12/30 continue tx. increase melatonin to 6mg po qhs per pt request. 12/31: incr melatonin to 9 mg per pt request. educated re possibility her insomnia is lingering manic Sx and that perhaps higher dosing/serum levels of lithium and/or VPA may be more helpful for her (she was referred to discuss with attending neftali when he returns). otherwise continue current mgmt. 01/01: Will increase Melatonin to 12 mg. Consider increasing dose of her mood stabilizers. 01/02: Increase Depakote to 1,750 mg HS. PLAN: [address] Q 15 minute checks on 11/04 Court ordered involuntary commitment and substituted judgment -Zyprexa 10 mg IM p.r.n. if refuses Depakote/lithium/zyprexa 1. Antipsychotic: DISCONTINUE Haldol: although court ordered, pt c/o side-effects and though these side-effects are mild (or non-existent), pt feels strongly that Zyprexa works much better and asks for Haldol to be removed. Continue Zyprexa 10 mg q.h.s.; even though minimally effective, was better than ziprasidone. Will restart Zyprexa for now with eye to trial of Haldol. QTC WNL 2. Valders: CONTINUE Valders ER 900mg qhs for continued hypomania; returned to Lithobid; (COURT ORDERED:? GIVE ZYPREXA IMIF REFUSES). Dec lithium ER to 450 mg due to sedation. -DO NOT LOWER LITHIUM DOSE; She has been floridly manic for a year; sometimes mistakes normal functioning for sedation -Valders level/TSH/BUN/creatinine WnL 3. Depakote: Continue Depakote ER 1500mg q.h.s. (COURT ORDERED:? GIVE ZYPREXA IM 10 MG IF REFUSES) -Valproic level: 77.3; repeated on 12/14 and Wnl -liver/ammonia: WNL -patient now willing to interact with technical report writer and discuss treatment; prior to today patient refused to directly talk with technical report writer despite daily attemps; technical report writer continues to daily assess patient by over hearing her talk to others peers and staff, observing her in the milieu and getting reports by multiple staff members Approved medications for substitute judgment include: Haldol Zyprexa up to 40mg: partiall effective Geodon: Not Effective Depakote: Effective lithium: Effective Ativan I spent minutes with the patient and/or on the patient floor today, greater than?50% of which was spent counseling/coordinating care. Reason for contiued inpatient stay Substantial Risk for: harm to self, inability to function and rapid decompensation
[2022-01-02 17:35] VITALS: BP 139/58; PULSE 71; TEMP 35.7
[2022-01-02] MEDS: Divalproex Sodium ER 250 MG TAB.ER.24H 1750 MG PO (22:27)
[2022-01-02] MEDS: OLANZapine 10 MG TABLET PO (22:27)
[2022-01-02] MEDS: Melatonin 3 MG TABLET 12 MG PO (22:28)
[2022-01-02] MEDS: Lithium Carbonate ER 450 MG TABLET.ER 900 MG PO (22:28)
[2022-01-03 06:00] VITALS: BP 110/66; PULSE 67; RESP 18; TEMP 36.1; O2SAT 100
--- NOTE | 2022-01-03 08:25 | P.PNPSI_ITS ---
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 pt request. 12/31: incr melatonin to 9 mg per pt request. educated re possibility her insomnia is lingering manic Sx and that perhaps higher dosing/serum levels of lithium and/or VPA may be more helpful for her (she was referred to discuss with attending neftali when he returns). otherwise continue current mgmt. 01/01: Will increase Melatonin to 12 mg. Consider increasing dose of her mood stabilizers. 01/02: Increase Depakote to 1,750 mg HS. PLAN: [address] Q 15 minute checks on 11/04 Court ordered involuntary commitment and substituted judgment -Zyprexa 10 mg IM p.r.n. if refuses Depakote/lithium/zyprexa 1. Antipsychotic: DISCONTINUE Haldol: although court ordered, pt c/o side-effects and though these side-effects are mild (or non-existent), pt feels strongly that Zyprexa works much better and asks for Haldol to be removed. Continue Zyprexa 10 mg q.h.s.; even though minimally effective, was better than ziprasidone. Will restart Zyprexa for now with eye to trial of Haldol. QTC WNL 2. Wahoo: CONTINUE Wahoo ER 900mg qhs for continued hypomania; returned to Lithobid; (COURT ORDERED:? GIVE ZYPREXA IMIF REFUSES). Dec lithium ER to 450 mg due to sedation. -DO NOT LOWER LITHIUM DOSE; She has been floridly manic for a year; sometimes mistakes normal functioning for sedation -Wahoo level/TSH/BUN/creatinine WnL 3. Depakote: Continue Depakote ER 1500mg q.h.s. (COURT ORDERED:? GIVE ZYPREXA IM 10 MG IF REFUSES) -Valproic level: 77.3; repeated on 12/14 and Wnl -liver/ammonia: WNL -patient now willing to interact with administrative underwriter and discuss treatment; prior to today patient refused to directly talk with administrative underwriter despite daily attemps; administrative underwriter continues to daily assess patient by over hearing her talk to others peers and staff, observing her in the milieu and getting reports by multiple staff members Approved medications for substitute judgment include: Haldol Zyprexa up to 40mg: partiall effective Geodon: Not Effective Depakote: Effective lithium: Effective Ativan I spent minutes with the patient and/or on the patient floor today, greater than?50% of which was spent counseling/coordinating care. Patient educated on: diagnosis and medication risk/benefits Informed Consent: understands Reason for contiued inpatient stay Substantial Risk for: rapid decompensation and med/psych decompensation
[2022-01-03 18:00] VITALS: BP 96/53; PULSE 72; TEMP 36.4; O2SAT 100
[2022-01-03] MEDS: Melatonin 3 MG TABLET 12 MG PO (22:15)
[2022-01-03] MEDS: Divalproex Sodium ER 500 MG TAB.ER.24H 1500 MG PO (22:15)
[2022-01-03] MEDS: Divalproex Sodium ER 250 MG TAB.ER.24H PO (22:16)
[2022-01-03] MEDS: OLANZapine 10 MG TABLET PO (22:16)
[2022-01-03] MEDS: Lithium Carbonate ER 450 MG TABLET.ER 900 MG PO (22:16)
[2022-01-04 07:49] VITALS: BP 105/56; PULSE 62; RESP 18; TEMP 36.7; O2SAT 100
[2022-01-04 16:37] VITALS: BP 100/56; PULSE 65; TEMP 36.7
--- NOTE | 2022-01-04 17:18 | HO.PSYCHPN ---
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 referred to discuss with attending neftali when he returns). otherwise continue current mgmt. 01/01: Will increase Melatonin to 12 mg. Consider increasing dose of her mood stabilizers. 01/02: Increase Depakote to 1,750 mg HS. 01/04 increased zyprexa (awake more at night; remains delusional, triggered by perceived traumas) PLAN: [address] Q 15 minute checks on 11/04 Court ordered involuntary commitment and substituted judgment -Zyprexa 10 mg IM p.r.n. if refuses Depakote/lithium/zyprexa 1. Antipsychotic: DISCONTINUE Haldol: although court ordered, pt c/o side-effects and though these side-effects are mild (or non-existent), pt feels strongly that Zyprexa works much better and asks for Haldol to be removed. INCREASE TO Zyprexa 15 mg q.h.s.; even though minimally effective, was better than ziprasidone. Will restart Zyprexa for now with eye to trial of Haldol. QTC WNL -get labs 2. [place]: CONTINUE [place] ER 900mg qhs for continued hypomania; returned to Lithobid; (COURT ORDERED:? GIVE ZYPREXA IMIF REFUSES). Dec lithium ER to 450 mg due to sedation. -DO NOT LOWER LITHIUM DOSE; She has been floridly manic for a year; sometimes mistakes normal functioning for sedation -[place] level on low side /TSH/BUN/creatinine WnL -get bals 3. Depakote: Continue Depakote ER 1500mg q.h.s. (COURT ORDERED:? GIVE ZYPREXA IM 10 MG IF REFUSES) -Valproic level: 77.3; repeated on 12/14 and Wnl current level on low side; will repeat -liver/ammonia: WNL -patient now willing to interact with casualty underwriter and discuss treatment; prior to today patient refused to directly talk with casualty underwriter despite daily attemps; casualty underwriter continues to daily assess patient by over hearing her talk to others peers and staff, observing her in the milieu and getting reports by multiple staff members Approved medications for substitute judgment include: Haldol Zyprexa up to 40mg: partiall effective Geodon: Not Effective Depakote: Effective lithium: Effective Ativan I spent minutes with the patient and/or on the patient floor today, greater than?50% of which was spent counseling/coordinating care. Patient educated on: diagnosis and medication risk/benefits Informed Consent: understands and further education needed Reason for contiued inpatient stay Substantial Risk for: med/psych decompensation
[2022-01-04 18:31] LABS: Appearance Urine Clear; Color Urine Yellow; Glucose Urine UA Negative (Negative); Leukocyte Esterase Urine Trace (Negative); Nitrite Urine Negative (Negative); PH 5.5 (5.0-9.0); UMIC TRIGGER UACC YES; Urine Blood Negative (Negative); Urine Ketones Negative (Negative); Urine Protein Negative (Neg-Trace)
[2022-01-04 18:33] LABS: Bacteria Urine None Seen (None Seen); Hyaline Casts Urine 0-2 /LPF (0-2); RBC Urine 0-2 /HPF (0-2); Squamous Epithelial Cell Urine 0-2 /HPF (0-2); WBC Urine 0-5 /HPF (0-5)
[2022-01-04] MEDS: Divalproex Sodium ER 500 MG TAB.ER.24H 1500 MG PO (22:29)
[2022-01-04] MEDS: Melatonin 3 MG TABLET 12 MG PO (22:30)
[2022-01-04] MEDS: Lithium Carbonate ER 450 MG TABLET.ER 900 MG PO (22:30)
[2022-01-04] MEDS: Divalproex Sodium ER 250 MG TAB.ER.24H PO (22:30)
[2022-01-04] MEDS: OLANZapine 10 MG TABLET PO (22:30)
[2022-01-05 14:00] VITALS: BP 111/67; PULSE 88; RESP 18; TEMP 36.6; O2SAT 98
--- NOTE | 2022-01-05 17:17 | P.PNPSI_ITS ---
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 continue to discuss whether patient continues to need this longer term admission or if she could perhaps try living in the community. 12/29 continue current treatment plan 12/30 continue tx. increase melatonin to 6mg po qhs per pt request. 12/31: incr melatonin to 9 mg per pt request. educated re possibility her insomnia is lingering manic Sx and that perhaps higher dosing/serum levels of lithium and/or VPA may be more helpful for her (she was referred to discuss with attending neftali when he returns). otherwise continue current mgmt. 01/01: Will increase Melatonin to 12 mg. Consider increasing dose of her mood stabilizers. 01/02: Increase Depakote to 1,750 mg HS. 01/04 increased zyprexa (awake more at night; remains delusional, triggered by perceived traumas) 01/05 add UA since frequently waking up to urinate (could also be due to lithium; denies any dysuria/frequency/urgency) PLAN: [address] Q 15 minute checks on 11/04 Court ordered involuntary commitment and substituted judgment -Zyprexa 10 mg IM p.r.n. if refuses Depakote/lithium/zyprexa 1. Antipsychotic: DISCONTINUE Haldol: although court ordered, pt c/o side-effects and though these side-effects are mild (or non-existent), pt feels strongly that Zyprexa w orks much better and asks for Haldol to be removed. INCREASE TO Zyprexa 15 mg q.h.s.; even though minimally effective, was better than ziprasidone. Will restart Zyprexa for now with eye to trial of Haldol. QTC WNL -get labs 2. [place]: CONTINUE [place] ER 900mg qhs for continued hypomania; returned to [facility]; (COURT ORDERED:? GIVE ZYPREXA IMIF REFUSES). Dec lithium ER to 450 mg due to sedation. -DO NOT LOWER LITHIUM DOSE; She has been floridly manic for a year; sometimes mistakes normal functioning for sedation -[place] level on low side /TSH/BUN/creatinine WnL -get bals 3. Depakote: Continue Depakote ER 1500mg q.h.s. (COURT ORDERED:? GIVE ZYPREXA IM 10 MG IF REFUSES) -Valproic level: 77.3; repeated on 12/14 and Wnl current level on low side; will repeat -liver/ammonia: WNL -patient now willing to interact with commercial insurance underwriter and discuss treatment; prior to today patient refused to directly talk with commercial insurance underwriter despite daily attemps; commercial insurance underwriter continues to daily assess patient by over hearing her talk to others peers and staff, observing her in the milieu and getting reports by multiple staff members Approved medications for substitute judgment include: Haldol Zyprexa up to 40mg: partiall effective Geodon: Not Effective Depakote: Effective lithium: Effective Ativan I spent minutes with the patient and/or on the patient floor today, greater than?50% of which was spent counseling/coordinating care. Patient educated on: diagnosis and medical condition Informed Consent: understands and does not understand Reason for contiued inpatient stay Substantial Risk for: med/psych decompensation
[2022-01-05] MEDS: Lithium Carbonate ER 450 MG TABLET.ER 900 MG PO (22:51)
[2022-01-05] MEDS: Melatonin 3 MG TABLET 12 MG PO (22:51)
[2022-01-05] MEDS: Divalproex Sodium ER 500 MG TAB.ER.24H 1500 MG PO (22:52)
[2022-01-05] MEDS: Divalproex Sodium ER 250 MG TAB.ER.24H PO (22:53)
[2022-01-05] MEDS: OLANZapine 10 MG TABLET PO (22:53)
[2022-01-05 23:00] VITALS: BP 101/55; PULSE 84; TEMP 35.7
--- NOTE | 2022-01-06 18:02 | HO.PSYCHPN ---
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 request. 12/31: incr melatonin to 9 mg per pt request. educated re possibility her insomnia is lingering manic Sx and that perhaps higher dosing/serum levels of lithium and/or VPA may be more helpful for her (she was referred to discuss with attending neftali when he returns). otherwise continue current mgmt. 01/01: Will increase Melatonin to 12 mg. Consider increasing dose of her mood stabilizers. 01/02: Increase Depakote to 1,750 mg HS. 01/04 will consider increasing zyprexa (awake more at night; remains delusional, triggered by perceived traumas) -not actually increased until 01/06 01/05 add UA since frequently waking up to urinate (could also be due to lithium; denies any dysuria/frequency/urgency) 01/06 increased Zyprexa to 15mg PLAN: [address] Q 15 minute checks on 11/04 Court ordered involuntary commitment and substituted judgment -Zyprexa 10 mg IM p.r.n. if refuses Depakote/lithium/zyprexa 1. Antipsychotic: DISCONTINUE? Haldol: although court ordered, pt c/o side-effects and though these side-effects are mild (or non-existent), pt feels strongly that Zyprexa works much better and asks for Haldol to be removed. INCREASE TO Zyprexa 15 mg q.h.s (not actually increased until 01/06).; even though minimally effective, was better than ziprasidone.? Will restart Zyprexa for now with eye to trial of Haldol. QTC WNL -get labs 2. [place]: CONTINUE [place] ER 900mg qhs for continued hypomania; returned to Lithobid; (COURT ORDERED:? GIVE ZYPREXA IMIF REFUSES). Dec lithium ER to 450 mg due to sedation. -DO NOT LOWER LITHIUM DOSE; She has been floridly manic for a year; sometimes mistakes normal functioning for sedation -[place] level on low side /TSH/BUN/creatinine WnL -get labs 3. Depakote: Continue Depakote ER 1500mg q.h.s. (COURT ORDERED:? GIVE ZYPREXA IM 10 MG IF REFUSES) -Valproic level: 77.3; repeated on 12/14 and Wnl current level on low side; will repeat -liver/ammonia: WNL -patient now willing to interact with food writer and discuss treatment; prior to today patient refused to directly talk with food writer despite daily attemps; food writer continues to daily assess patient by over hearing her talk to others peers and staff, observing her in the milieu and getting reports by multiple staff members Approved medications for substitute judgment include: Haldol Zyprexa up to 40mg: partiall effective Geodon: Not Effective Depakote: Effective lithium: Effective Ativan I spent minutes with the patient and/or on the patient floor today, greater than?50% of which was spent counseling/coordinating care. Patient educated on: diagnosis and medication risk/benefits Informed Consent: understands Reason for contiued inpatient stay Substantial Risk for: med/psych decompensation
[2022-01-06] MEDS: Divalproex Sodium ER 500 MG TAB.ER.24H 1500 MG PO (22:58)
[2022-01-06] MEDS: Lithium Carbonate ER 450 MG TABLET.ER 900 MG PO (22:59)
[2022-01-06] MEDS: OLANZapine 7.5 MG TABLET 15 MG PO (23:00)
[2022-01-06] MEDS: Melatonin 3 MG TABLET 12 MG PO (23:03)
[2022-01-06 23:10] VITALS: BP 100/65; PULSE 75; TEMP 36.2
[2022-01-06] MEDS: Divalproex Sodium ER 250 MG TAB.ER.24H PO (23:13)
[2022-01-07 06:00] VITALS: BP 94/60; PULSE 64; TEMP 36.3; O2SAT 100
[2022-01-07 09:53] LABS: Ammonia 54 umol/L (13-55)
[2022-01-07 10:07] LABS: Valproate 66.7 mcg/mL (50.0-100.0)
[2022-01-07 10:49] LABS: Alanine Aminotransferase < 6 U/L (0-31); Alkaline Phosphatase 41 U/L (39-117); Aspartate Amino Transferase 9 U/L (5-31); Bilirubin Direct 0.2 mg/dL (0.0-0.5); Bilirubin Total 0.7 mg/dL (0.0-1.0); Blood Urea Nitrogen 12 mg/dL (9-16); Creatinine Clr Calc Pharmacy 86.7; Estimated Glomerular Filt Rate > 60; TSH reflex Free T4 3.67 uIU/mL (0.32-4.0); Total Protein 6.8 g/dL (6.5-8.0)
[2022-01-07 15:25] LABS: Lithium 0.74 mmol/L (0.60-1.20)
[2022-01-07 18:00] VITALS: BP 109/64; PULSE 76; RESP 18; TEMP 37.1; O2SAT 100
--- NOTE | 2022-01-07 18:03 | HO.PSYCHPN ---
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 longer term admission or if she could perhaps try living in the community. 12/29 continue current treatment plan 12/30 continue tx. increase melatonin to 6mg po qhs per pt request. 12/31: incr melatonin to 9 mg per pt request. educated re possibility her insomnia is lingering manic Sx and that perhaps higher dosing/serum levels of lithium and/or VPA may be more helpful for her (she was referred to discuss with attending neftali when he returns). otherwise continue current mgmt. 01/01: Will increase Melatonin to 12 mg. Consider increasing dose of her mood stabilizers. 01/02: Increase Depakote to 1,750 mg HS. 01/04 will consider increasing zyprexa (awake more at night; remains delusional, triggered by perceived traumas) -not actually increased until 01/06 01/05 add UA since frequently waking up to urinate (could also be due to lithium; denies any dysuria/frequency/urgency) 01/06 increased Zyprexa to 15mg 01/07 says increased zyprexa making her too tired; curriculum writer explained pt remains triggered by her hx of perceived traumas and so she agrees to continue taking it over the weekend and re-evaluate next week PLAN: [address] Q 15 minute checks on 11/04 Court ordered involuntary commitment and substituted judgment -Zyprexa 10 mg IM p.r.n. if refuses Depakote/lithium/zyprexa 1. Antipsychotic: DISCONTINUE? Haldol: although court ordered, pt c/o side-effects and though these side-effects are mild (or non-existent), pt feels strongly that Zyprexa works much better and asks for Haldol to be removed. INCREASE TO Zyprexa 15 mg q.h.s (not actually increased until 01/06).; even though minimally effective, was better than ziprasidone.? Will restart Zyprexa for now with eye to trial of Haldol. QTC WNL 2. [place]: CONTINUE [place] ER 900mg qhs for continued hypomania; returned to Lithobid; (COURT ORDERED:? GIVE ZYPREXA IMIF REFUSES). Dec lithium ER to 450 mg due to sedation. -DO NOT LOWER LITHIUM DOSE; She has been floridly manic for a year; sometimes mistakes normal functioning for sedation -[place] level on low side /TSH/BUN/creatinine WnL Level 0.74 on 01/07 3. Depakote: Continue Depakote ER 1500mg q.h.s. (COURT ORDERED:? GIVE ZYPREXA IM 10 MG IF REFUSES) -Valproic level: 77.3; repeated on 12/14 and Wnl Level: 66.7 on 01/07 current level on low side; will repeat -liver/ammonia: WNL -patient now willing to interact with curriculum writer and discuss treatment; prior to today patient refused to directly talk with curriculum writer despite daily attemps; curriculum writer continues to daily assess patient by over hearing her talk to others peers and staff, observing her in the milieu and getting reports by multiple staff members Approved medications for substitute judgment include: Haldol Zyprexa up to 40mg: partiall effective Geodon: Not Effective Depakote: Effective lithium: Effective Ativan I spent minutes with the patient and/or on the patient floor today, greater than?50% of which was spent counseling/coordinating care. Patient educated on: diagnosis and medication risk/benefits Informed Consent: understands and further education needed Reason for contiued inpatient stay Substantial Risk for: med/psych decompensation
[2022-01-07] MEDS: Divalproex Sodium ER 500 MG TAB.ER.24H 1500 MG PO (22:50)
[2022-01-07] MEDS: Melatonin 3 MG TABLET 12 MG PO (22:51)
[2022-01-07] MEDS: OLANZapine 7.5 MG TABLET 15 MG PO (22:51)
[2022-01-07] MEDS: Divalproex Sodium ER 250 MG TAB.ER.24H PO (22:51)
[2022-01-07] MEDS: Lithium Carbonate ER 450 MG TABLET.ER 900 MG PO (22:51)
[2022-01-08 06:00] VITALS: BP 88/55; PULSE 88; TEMP 36.5; O2SAT 99
--- NOTE | 2022-01-08 07:36 | HO.PSYCHPN ---
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 much better and asks for Haldol to be removed. Continue Zyprexa 10 mg q.h.s.; even though minimally effective, was better than ziprasidone. Will restart Zyprexa for now with eye to trial of Haldol. QTC WNL 2. [place]: CONTINUE [place] ER 900mg qhs for continued hypomania; returned to Lithobid; (COURT ORDERED:? GIVE ZYPREXA IMIF REFUSES). Dec lithium ER to 450 mg due to sedation. -DO NOT LOWER LITHIUM DOSE; She has been floridly manic for a year; sometimes mistakes normal functioning for sedation -[place] level/TSH/BUN/creatinine WnL 3. Depakote: Continue Depakote ER 1500mg q.h.s. (COURT ORDERED:? GIVE ZYPREXA IM 10 MG IF REFUSES) -Valproic level: 77.3; repeated on 12/14 and Wnl -liver/ammonia: WNL -patient now willing to interact with headline writer and discuss treatment; prior to today patient refused to directly talk with headline writer despite daily attemps; headline writer continues to daily assess patient by over hearing her talk to others peers and staff, observing her in the milieu and getting reports by multiple staff members Approved medications for substitute judgment include: Haldol Zyprexa up to 40mg: partiall effective Geodon: Not Effective Depakote: Effective lithium: Effective Ativan I spent minutes with the patient and/or on the patient floor today, greater than?50% of which was spent counseling/coordinating care. Reason for contiued inpatient stay Substantial Risk for: inability to function and rapid decompensation
[2022-01-08 16:41] VITALS: BP 104/54; PULSE 76; TEMP 36.6; O2SAT 100
[2022-01-08] MEDS: Divalproex Sodium ER 500 MG TAB.ER.24H 1500 MG PO (22:22)
[2022-01-08] MEDS: Divalproex Sodium ER 250 MG TAB.ER.24H PO (22:22)
[2022-01-08] MEDS: Lithium Carbonate ER 450 MG TABLET.ER 900 MG PO (22:22)
[2022-01-08] MEDS: Melatonin 3 MG TABLET 12 MG PO (22:22)
[2022-01-08] MEDS: OLANZapine 7.5 MG TABLET 15 MG PO (22:22)
--- NOTE | 2022-01-09 11:06 | HO.PSYCHPN ---
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 HS. PLAN: [address] Q 15 minute checks on 11/04 Court ordered involuntary commitment and substituted judgment -Zyprexa 10 mg IM p.r.n. if refuses Depakote/lithium/zyprexa 1. Antipsychotic: DISCONTINUE Haldol: although court ordered, pt c/o side-effects and though these side-effects are mild (or non-existent), pt feels strongly that Zyprexa works much better and asks for Haldol to be removed. Continue Zyprexa 10 mg q.h.s.; even though minimally effective, was better than ziprasidone. Will restart Zyprexa for now with eye to trial of Haldol. QTC WNL 2. [place]: CONTINUE [place] ER 900mg qhs for continued hypomania; returned to Lithobid; (COURT ORDERED:? GIVE ZYPREXA IMIF REFUSES). Dec lithium ER to 450 mg due to sedation. -DO NOT LOWER LITHIUM DOSE; She has been floridly manic for a year; sometimes mistakes normal functioning for sedation -[place] level/TSH/BUN/creatinine WnL 3. Depakote: Continue Depakote ER 1500mg q.h.s. (COURT ORDERED:? GIVE ZYPREXA IM 10 MG IF REFUSES) -Valproic level: 77.3; repeated on 12/14 and Wnl -liver/ammonia: WNL -patient now willing to interact with functional tester typewriters and discuss treatment; prior to today patient refused to directly talk with functional tester typewriters despite daily attemps; functional [employer] continues to daily assess patient by over hearing her talk to others peers and staff, observing her in the milieu and getting reports by multiple staff members Approved medications for substitute judgment include: Haldol Zyprexa up to 40mg: partiall effective Geodon: Not Effective Depakote: Effective lithium: Effective Ativan I spent minutes with the patient and/or on the patient floor today, greater than?50% of which was spent counseling/coordinating care. Patient educated on: medication risk/benefits and therapeutic strategies Informed Consent: understands Reason for contiued inpatient stay Substantial Risk for: inability to function and rapid decompensation
[2022-01-09 16:56] VITALS: BP 115/61; PULSE 71; RESP 18; TEMP 36.8; O2SAT 100
[2022-01-09] MEDS: Melatonin 3 MG TABLET 12 MG PO (22:30)
[2022-01-09] MEDS: Divalproex Sodium ER 250 MG TAB.ER.24H PO (22:31)
[2022-01-09] MEDS: Lithium Carbonate ER 450 MG TABLET.ER 900 MG PO (22:31)
[2022-01-09] MEDS: OLANZapine 7.5 MG TABLET 15 MG PO (22:31)
[2022-01-09] MEDS: Divalproex Sodium ER 500 MG TAB.ER.24H 1500 MG PO (22:31)
--- NOTE | 2022-01-10 17:05 | HO.PSYCHPN ---
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 melatonin to 6mg po qhs per pt request. 12/31: incr melatonin to 9 mg per pt request. educated re possibility her insomnia is lingering manic Sx and that perhaps higher dosing/serum levels of lithium and/or VPA may be more helpful for her (she was referred to discuss with attending neftali when he returns). otherwise continue current mgmt. 01/01: Will increase Melatonin to 12 mg. Consider increasing dose of her mood stabilizers. 01/02: Increase Depakote to 1,750 mg HS. 01/04 will consider increasing zyprexa (awake more at night; remains delusional, triggered by perceived traumas) -not actually increased until 01/06 01/05 add UA since frequently waking up to urinate (could also be due to lithium; denies any dysuria/frequency/urgency) 01/06 increased Zyprexa to 15mg 01/07 says increased zyprexa making her too tired; personal lines underwriter explained pt remains triggered by her hx of perceived traumas and so she agrees to continue taking it over the weekend and re-evaluate next week 01/10 remains with paranoid delusions, however is comfortable with focusing on them less and accepting them as the past...most recent example is making amends w/ her mother, reconciling with her despite believing she is currently pending court for federal charges for trying to poison her. Pt wants zyprexa back to 10mg; while personal lines underwriter thinks she's doing better on 15mg, the improvement is mininal and patients adherence is more important. PLAN: [address] Q 15 minute checks on 11/04 [address] ordered involuntary commitment and substituted judgment -Zyprexa 10 mg IM p.r.n. if refuses Depakote/lithium/zyprexa 1. Antipsychotic: Zyprexa LOWER back to Zyprexa 10 mg q.h.s QTC WNL DISCONTINUE? Haldol: although court ordered, pt c/o side-effects and though these side-effects are mild (or non-existent), pt feels strongly that Zyprexa works much better and asks for Haldol to be removed. 2. Sawpit: CONTINUE Sawpit ER 900mg qhs for continued hypomania; returned to Lithobid; (COURT ORDERED:? GIVE ZYPREXA IMIF REFUSES). Dec lithium ER to 450 mg due to sedation. -DO NOT LOWER LITHIUM DOSE; She has been floridly manic for a year; sometimes mistakes normal functioning for sedation -Sawpit level on low side /TSH/BUN/creatinine WnL Level 0.74 on 01/07 3. Depakote: Continue Depakote ER 1500mg q.h.s. (COURT ORDERED:? GIVE ZYPREXA IM 10 MG IF REFUSES) -Valproic level: 77.3; repeated on 12/14 and Wnl Level: 66.7 on 01/07 current level on low side; will repeat -liver/ammonia: WNL -patient now willing to interact with personal lines underwriter and discuss treatment; prior to today patient refused to directly talk with personal lines underwriter despite daily attemps; personal lines underwriter continues to daily assess patient by over hearing her talk to others peers and staff, observing her in the milieu and getting reports by multiple staff members Approved medications for substitute judgment include: Haldol: probably helpful Zyprexa up to 40mg: partially effective Geodon: Not Effective Depakote: Effective lithium: Effective Ativan I spent minutes with the patient and/or on the patient floor today, greater than?50% of which was spent counseling/coordinating care. Patient educated on: diagnosis and medication risk/benefits Informed Consent: understands and does not understand Reason for contiued inpatient stay Substantial Risk for: stable for discharge and med/psych decompensation
[2022-01-10 17:20] VITALS: BP 97/57; PULSE 63; TEMP 36.6
[2022-01-10] MEDS: Divalproex Sodium ER 250 MG TAB.ER.24H PO (22:50)
[2022-01-10] MEDS: OLANZapine 10 MG TABLET PO (22:50)
[2022-01-10] MEDS: Melatonin 3 MG TABLET 12 MG PO (22:51)
[2022-01-10] MEDS: Lithium Carbonate ER 450 MG TABLET.ER 900 MG PO (22:51)
[2022-01-10] MEDS: Divalproex Sodium ER 500 MG TAB.ER.24H 1500 MG PO (22:51)
[2022-01-11 09:46] VITALS: BP 99/59; PULSE 70; RESP 18; TEMP 36.9; O2SAT 98
--- NOTE | 2022-01-11 15:51 | HO.PSYCHPN ---
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 provider-patient therapeutic [place]. -Application has been made to [facility].? Team will continue to discuss whether patient continues to need this longer term admission or if she could perhaps try living in the community. 12/29 continue current treatment plan 12/30 continue tx. increase melatonin to 6mg po qhs per pt request. 12/31: incr melatonin to 9 mg per pt request. educated re possibility her insomnia is lingering manic Sx and that perhaps higher dosing/serum levels of lithium and/or VPA may be more helpful for her (she was referred to discuss with attending neftali when he returns). otherwise continue current mgmt. 01/01: Will increase Melatonin to 12 mg. Consider increasing dose of her mood stabilizers. 01/02: Increase Depakote to 1,750 mg HS. 01/04 will consider increasing zyprexa (awake more at night; remains delusional, triggered by perceived traumas) -not actually increased until 01/06 01/05 add UA since frequently waking up to urinate (could also be due to lithium; denies any dysuria/frequency/urgency) 01/06 increased Zyprexa to 15mg 01/07 says increased zyprexa making her too tired; typewriter assembly and parts inspector explained pt remains triggered by her hx of perceived traumas and so she agrees to continue taking it over the weekend and re-evaluate next week 01/10 remains with paranoid delusions, however is comfortable with focusing on them less and accepting them as the past...most recent example is making amends w/ her mother, reconciling with her despite believing she is currently pending court for federal charges for trying to poison her. Pt wants zyprexa back to 10mg; while typewriter assembly and parts inspector thinks she's doing better on 15mg, the improvement is mininal and patients adherence is more important. 01/11 although patient remains with paranoid delusions, she has been able to demonstrate an ability to cope with them and keep them more to herself. She has made amends with this typewriter assembly and parts inspector and now has a very strong rapport; she has also made amends with her mother. At this time team has reconsidered the need for her to go to [facility]. While being at a long-term state facility would given opportunity to try other medications, should a court include them, there is no guarantee that these medications would reduce her delusional thinking any further. Patient may very well be able to tolerate and be successful in the community at her current presentation. Also as typewriter assembly and parts inspector has mentioned it is imperative that she feel she has a close finley with her providers and forcing her to go to a state hospital could impair that. Furthermore she plans to continue taking medications and may very well be amenable to changes in her medications while in the community. PLAN: [address] court Q 15 minute checks on 11/04 Court ordered involuntary commitment and substituted judgment -Zyprexa 10 mg IM p.r.n. if refuses Depakote/lithium/zyprexa 1. Antipsychotic: Zyprexa LOWER back to Zyprexa 10 mg q.h.s QTC WNL DISCONTINUE? Haldol: although court ordered, pt c/o side-effects and though these side-effects are mild (or non-existent), pt feels strongly that Zyprexa works much better and asks for Haldol to be removed. 2. [place]: CONTINUE [place] ER 900mg qhs for continued hypomania; returned to [facility]; (COURT ORDERED:? GIVE ZYPREXA IMIF REFUSES). Dec lithium ER to 450 mg due to sedation. -DO NOT LOWER LITHIUM DOSE; She has been floridly manic for a year; sometimes mistakes normal functioning for sedation -[place] level on low side /TSH/BUN/creatinine WnL Level 0.74 on 01/07 3. Depakote: Continue Depakote ER 1500mg q.h.s. (COURT ORDERED:? GIVE ZYPREXA IM 10 MG IF REFUSES) -Valproic level: 77.3; repeated on 12/14 and Wnl Level: 66.7 on 01/07 current level on low side; will repeat -liver/ammonia: WNL -patient now willing to interact with typewriter assembly and parts inspector and discuss treatment; prior to today patient refused to directly talk with typewriter assembly and parts inspector despite daily attemps; typewriter assembly and parts inspector continues to daily assess patient by over hearing her talk to others peers and staff, observing her in the milieu and getting reports by multiple staff members Approved medications for substitute judgment include: Haldol: probably helpful Zyprexa up to 40mg: partially effective Geodon: Not Effective Depakote: Effective lithium: Effective Ativan I spent minutes with the patient and/or on the patient floor today, greater than?50% of which was spent counseling/coordinating care. Patient educated on: diagnosis and therapeutic strategies Informed Consent: understands and does not understand Reason for contiued inpatient stay Substantial Risk for: stable for discharge
[2022-01-11 16:02] VITALS: BP 112/61; PULSE 79; RESP 15; TEMP 36.6; O2SAT 99
[2022-01-11] MEDS: Divalproex Sodium ER 500 MG TAB.ER.24H 1500 MG PO (22:38)
[2022-01-11] MEDS: Lithium Carbonate ER 450 MG TABLET.ER 900 MG PO (22:39)
[2022-01-11] MEDS: OLANZapine 10 MG TABLET PO (22:39)
[2022-01-11] MEDS: Divalproex Sodium ER 250 MG TAB.ER.24H PO (22:39)
[2022-01-11] MEDS: Melatonin 3 MG TABLET 12 MG PO (22:39)
--- NOTE | 2022-01-12 09:56 | HO.PSYCHPN ---
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 continues to need this longer term admission or if she could perhaps try living in the community. 12/29 continue current treatment plan 12/30 continue tx. increase melatonin to 6mg po qhs per pt request. 12/31: incr melatonin to 9 mg per pt request. educated re possibility her insomnia is lingering manic Sx and that perhaps higher dosing/serum levels of lithium and/or VPA may be more helpful for her (she was referred to discuss with attending neftali when he returns). otherwise continue current mgmt. 01/01: Will increase Melatonin to 12 mg. Consider increasing dose of her mood stabilizers. 01/02: Increase Depakote to 1,750 mg HS. 01/04 will consider increasing zyprexa (awake more at night; remains delusional, triggered by perceived traumas) -not actually increased until 01/06 01/05 add UA since frequently waking up to urinate (could also be due to lithium; denies any dysuria/frequency/urgency) 01/06 increased Zyprexa to 15mg 01/07 says increased zyprexa making her too tired; typewriter operator automatic explained pt remains triggered by her hx of perceived traumas and so she agrees to continue taking it over the weekend and re-evaluate next week 01/10 remains with paranoid delusions, however is comfortable with focusing on them less and accepting them as the past...most recent example is making amends w/ her mother, reconciling with her despite believing she is currently pending court for federal charges for trying to poison her. Pt wants zyprexa back to 10mg; while typewriter operator automatic thinks she's doing better on 15mg, the improvement is mininal and patients adherence is more important. 01/11 although patient remains with paranoid delusions, she has been able to demonstrate an ability to cope with them and keep them more to herself. She has made amends with this typewriter operator automatic and now has a very strong rapport; she has also made amends with her mother. At this time team has reconsidered the need for her to go to [facility]. While being at a long-term state facility would given opportunity to try other medications, should a new court add them, there is no guarantee that these medications would reduce her delusional thinking any further. Patient may very well be able to tolerate and be successful in the community at her current presentation. Also as typewriter operator automatic has mentioned it is imperative that she feels it's possible to have a close finley with her providers and forcing her to go to a state hospital could impair that. Furthermore, she will have a VNA at home and extensive outpt support; she plans to continue taking medications and may very well be amenable to making further meds changes while in the community. PLAN: [address] court Q 15 minute checks on 11/04 Court ordered involuntary commitment and substituted judgment -Zyprexa 10 mg IM p.r.n. if refuses Depakote/lithium/zyprexa 1. Antipsychotic: Zyprexa LOWER back to Zyprexa 10 mg q.h.s QTC WNL DISCONTINUE? Haldol: although court ordered, pt c/o side-effects and though these side-effects are mild (or non-existent), pt feels strongly that Zyprexa works much better and asks for Haldol to be removed. 2. Lookingglass: CONTINUE Lookingglass ER 900mg qhs for continued hypomania; returned to Lithobid; (COURT ORDERED:? GIVE ZYPREXA IMIF REFUSES). Dec lithium ER to 450 mg due to sedation. -DO NOT LOWER LITHIUM DOSE; She has been floridly manic for a year; sometimes mistakes normal functioning for sedation -Lookingglass level on low side /TSH/BUN/creatinine WnL Level 0.74 on 01/07 3. Depakote: Continue Depakote ER 1500mg q.h.s. (COURT ORDERED:? GIVE ZYPREXA IM 10 MG IF REFUSES) -Valproic level: 77.3; repeated on 12/14 and Wnl Level: 66.7 on 01/07 current level on low side; will repeat -liver/ammonia: WNL -patient now willing to interact with typewriter operator automatic and discuss treatment; prior to today patient refused to directly talk with typewriter operator automatic despite daily attemps; typewriter operator automatic continues to daily assess patient by over hearing her talk to others peers and staff, observing her in the milieu and getting reports by multiple staff members Approved medications for substitute judgment include: Haldol: probably helpful Zyprexa up to 40mg: partially effective Geodon: Not Effective Depakote: Effective lithium: Effective Ativan I spent minutes with the patient and/or on the patient floor today, greater than?50% of which was spent counseling/coordinating care. Patient educated on: therapeutic strategies Informed Consent: understands Reason for contiued inpatient stay Substantial Risk for: stable for discharge
[2022-01-12 11:48] VITALS: BP 105/67; PULSE 84; RESP 18; TEMP 36.8; O2SAT 97
[2022-01-12 16:58] VITALS: BP 96/69; PULSE 68; RESP 16; TEMP 36.6; O2SAT 100
[2022-01-12] MEDS: Lithium Carbonate ER 450 MG TABLET.ER 900 MG PO (22:04)
[2022-01-12] MEDS: Divalproex Sodium ER 250 MG TAB.ER.24H PO (22:04)
[2022-01-12] MEDS: Melatonin 3 MG TABLET 12 MG PO (22:04)
[2022-01-12] MEDS: Divalproex Sodium ER 500 MG TAB.ER.24H 1500 MG PO (22:05)
[2022-01-12] MEDS: OLANZapine 10 MG TABLET PO (22:08)
--- NOTE | 2022-01-13 10:44 | P.PNPSI_ITS ---
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 dosing/serum levels of lithium and/or VPA may be more helpful for her (she was referred to discuss with attending neftali when he returns). otherwise continue current mgmt. 01/01: Will increase Melatonin to 12 mg. Consider increasing dose of her mood stabilizers. 01/02: Increase Depakote to 1,750 mg HS. 01/04 will consider increasing zyprexa (awake more at night; remains delusional, triggered by perceived traumas) -not actually increased until 01/06 01/05 add UA since frequently waking up to urinate (could also be due to lithium; denies any dysuria/frequency/urgency) 01/06 increased Zyprexa to 15mg 01/07 says increased zyprexa making her too tired; principal technical writer explained pt remains tr iggered by her hx of perceived traumas and so she agrees to continue taking it over the weekend and re-evaluate next week 01/10 remains with paranoid delusions, however is comfortable with focusing on them less and accepting them as the past...most recent example is making amends w/ her mother, reconciling with her despite believing she is currently pending court for federal charges for trying to poison her. Pt wants zyprexa back to 10mg; while principal technical writer thinks she's doing better on 15mg, the improvement is mininal and patients adherence is more important. 01/11 although patient remains with paranoid delusions, she has been able to demonstrate an ability to cope with them and keep them more to herself. She has made amends with this principal technical writer and now has a very strong rapport; she has also made amends with her mother. At this time team has reconsidered the need for her to go to [facility]. While being at a long-term state facility would given opportunity to try other medications, should a new court add them, there is no guarantee that these medications would reduce her delusional thinking any f urther. Patient may very well be able to tolerate and be successful in the community at her current presentation. Also as principal technical writer has mentioned it is imperative that she feels it's possible to have a close finley with her providers and forcing her to go to a state hospital could impair that. Furthermore, she will have a VNA at home and extensive outpt support; she plans to continue taking medications and may very well be amenable to making further meds changes while in the community. 01/13 good meeting with [facility]; agree that pt does not need respite; discussing discharge for possibly next week pending setting up outpt services PLAN: [address] Q 15 minute checks on 11/04 Court ordered involuntary commitment and substituted judgment -Zyprexa 10 mg IM p.r.n. if refuses Depakote/lithium/zyprexa 1. Antipsychotic: Zyprexa LOWERed back to Zyprexa 10 mg q.h.s QTC WNL DISCONTINUE? Haldol: although court ordered, pt c/o side-effects and though these side-effects are mild (or non-existent), pt feels strongly that Zyprexa works much better and asks for Haldol to be removed. 2. Herron: CONTINUE Herron ER 900mg qhs for continued hypomania; returned to Lithobid; (COURT ORDERED:? GIVE ZYPREXA IMIF REFUSES). Dec lithium ER to 450 mg due to sedation. -DO NOT LOWER LITHIUM DOSE; She has been floridly manic for a year; sometimes mistakes normal functioning for sedation -Herron level on low side /TSH/BUN/creatinine WnL Level 0.74 on 01/07 3. Depakote: Continue Depakote ER 1500mg q.h.s. (COURT ORDERED:? GIVE ZYPREXA IM 10 MG IF REFUSES) -Valproic level: 77.3; repeated on 12/14 and Wnl Level: 66.7 on 01/07 current level on low side; will repeat -liver/ammonia: WNL -patient now willing to interact with principal technical writer and discuss treatment; prior to today patient refused to directly talk with principal technical writer despite daily attemps; principal technical writer continues to daily assess patient by over hearing her talk to others peers and staff, observing her in the milieu and getting reports by multiple staff members Approved medications for substitute judgment include: Haldol: probably helpful Zyprexa up to 40mg: partially effective Geodon: Not Effective Depakote: Effective lithium: Effective Ativan I spent minutes with the patient and/or on the patient floor today, greater than?50% of which was spent counseling/coordinating care. Patient educated on: therapeutic strategies Informed Consent: understands Reason for contiued inpatient stay Substantial Risk for: other (safe dispo planning)
[2022-01-13 18:00] VITALS: BP 117/70; PULSE 73; TEMP 36.2; O2SAT 100
[2022-01-13] MEDS: Divalproex Sodium ER 500 MG TAB.ER.24H 1500 MG PO (22:47)
[2022-01-13] MEDS: Melatonin 3 MG TABLET 12 MG PO (22:47)
[2022-01-13] MEDS: Lithium Carbonate ER 450 MG TABLET.ER 900 MG PO (22:47)
[2022-01-13] MEDS: OLANZapine 10 MG TABLET PO (22:48)
[2022-01-13] MEDS: Divalproex Sodium ER 250 MG TAB.ER.24H PO (22:48)
[2022-01-14 06:00] VITALS: BP 107/68; PULSE 80; RESP 16; TEMP 36.6; O2SAT 98
[2022-01-14 18:00] VITALS: BP 111/72; PULSE 72; TEMP 36.8; O2SAT 99
[2022-01-14] MEDS: Divalproex Sodium ER 250 MG TAB.ER.24H PO (22:25)
[2022-01-14] MEDS: Lithium Carbonate ER 450 MG TABLET.ER 900 MG PO (22:25)
[2022-01-14] MEDS: Divalproex Sodium ER 500 MG TAB.ER.24H 1500 MG PO (22:25)
[2022-01-14] MEDS: Melatonin 3 MG TABLET 12 MG PO (22:25)
[2022-01-14] MEDS: OLANZapine 10 MG TABLET PO (22:26)
--- NOTE | 2022-01-14 23:47 | HO.PSYCHPN ---
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 increasing dose of her mood stabilizers. 01/02: Increase Depakote to 1,750 mg HS. 01/04 will consider increasing zyprexa (awake more at night; remains delusional, triggered by perceived traumas) -not actually increased until 01/06 01/05 add UA since frequently waking up to urinate (could also be due to lithium; denies any dysuria/frequency/urgency) 01/06 increased Zyprexa to 15mg 01/07 says increased zyprexa making her too tired; designer writer explained pt remains triggered by her hx of perceived traumas and so she agrees to continue taking it over the weekend and re-evaluate next week 01/10 remains with paranoid delusions, however is comfortable with focusing on them less and accepting them as the past...most recent example is making amends w/ her mother, reconciling with her despite believing she is currently pending court for federal charges for trying to poison her. Pt wants zyprexa back to 10mg; while designer writer thinks she's doing better on 15mg, the improvement is mininal and patients adherence is more important. 01/11 although patient remains with paranoid delusions, she has been able to demonstrate an ability to cope with them and keep them more to herself. She has made amends with this designer writer and now has a very strong rapport; she has also made amends with her mother. At this time team has reconsidered the need for her to go to [facility]. While being at a long-term state facility would given opportunity to try other medications, should a new court add them, there is no guarantee that these medications would reduce her delusional thinking any further. Patient may very well be able to tolerate and be successful in the community at her current presentation. Also as designer writer has mentioned it is imperative that she feels it's possible to have a close finley with her providers and forcing her to go to a state hospital could impair that. Furthermore, she will have a VNA at home and extensive outpt support; she plans to continue taking medications and may very well be amenable to making further meds changes while in the community. 01/13 good meeting with [facility]; agree that pt does not need respite; discussing discharge for possibly next week pending setting up outpt services PLAN: [address] Q 15 minute checks on 11/04 [address] ordered involuntary commitment and substituted judgment -Zyprexa 10 mg IM p.r.n. if refuses Depakote/lithium/zyprexa 1. Antipsychotic: Zyprexa LOWER back to Zyprexa 10 mg q.h.s QTC WNL DISCONTINUE? Haldol: although court ordered, pt c/o side-effects and though these side-effects are mild (or non-existent), pt feels strongly that Zyprexa works much better and asks for Haldol to be removed. 2. Fults: CONTINUE Fults ER 900mg qhs for continued hypomania; returned to Lithobid; (COURT ORDERED:? GIVE ZYPREXA IMIF REFUSES). Dec lithium ER to 450 mg due to sedation. -DO NOT LOWER LITHIUM DOSE; She has been floridly manic for a year; sometimes mistakes normal functioning for sedation -Fults level on low side /TSH/BUN/creatinine WnL Level 0.74 on 01/07 3. Depakote: Continue Depakote ER 1500mg q.h.s. (COURT ORDERED:? GIVE ZYPREXA IM 10 MG IF REFUSES) -Valproic level: 77.3; repeated on 12/14 and Wnl Level: 66.7 on 01/07 current level on low side; will repeat -liver/ammonia: WNL -patient now willing to interact with designer writer and discuss treatment; prior to today patient refused to directly talk with designer writer despite daily attemps; designer writer continues to daily assess patient by over hearing her talk to others peers and staff, observing her in the milieu and getting reports by multiple staff members Approved medications for substitute judgment include: Haldol: probably helpful Zyprexa up to 40mg: partially effective Geodon: Not Effective Depakote: Effective lithium: Effective Ativan I spent minutes with the patient and/or on the patient floor today, greater than?50% of which was spent counseling/coordinating care. Patient educated on: therapeutic strategies Informed Consent: understands Reason for contiued inpatient stay Substantial Risk for: other (dispo)
--- NOTE | 2022-01-15 09:48 | HO.PSYCHPN ---
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 ability to cope with them and keep them more to herself. She has made amends with this telegraphic typewriter installer and now has a very strong rapport; she has also made amends with her mother. At this time team has reconsidered the need for her to go to [facility]. While being at a long-term state facility would given opportunity to try other medications, should a new court add them, there is no guarantee that these medications would reduce her delusional thinking any further. Patient may very well be able to tolerate and be successful in the community at her current presentation. Also as telegraphic typewriter installer has mentioned it is imperative that she feels it's possible to have a close finley with her providers and forcing her to go to a state hospital could impair that. Furthermore, she will have a VNA at home and extensive outpt support; she plans to continue taking medications and may very well be amenable to making further meds changes while in the community. 01/15/2022 Continue plan of care monitor delusional preoccupations and response to medication PLAN: Section [address] court Q 15 minute checks on 11/04 Court ordered involuntary commitment and substituted judgment -Zyprexa 10 mg IM p.r.n. if refuses Depakote/lithium/zyprexa 1. Antipsychotic: Zyprexa LOWER back to Zyprexa 10 mg q.h.s QTC WNL DISCONTINUE? Haldol: although court ordered, pt c/o side-effects and though these side-effects are mild (or non-existent), pt feels strongly that Zyprexa works much better and asks for Haldol to be removed. 2. Kenvil: CONTINUE Kenvil ER 900mg qhs for continued hypomania; returned to [facility]; (COURT ORDERED:? GIVE ZYPREXA IMIF REFUSES). Dec lithium ER to 450 mg due to sedation. -DO NOT LOWER LITHIUM DOSE; She has been floridly manic for a year; sometimes mistakes normal functioning for sedation -Kenvil level on low side /TSH/BUN/creatinine WnL Level 0.74 on 01/07 3. Depakote: Continue Depakote ER 1500mg q.h.s. (COURT ORDERED:? GIVE ZYPREXA IM 10 MG IF REFUSES) -Valproic level: 77.3; repeated on 12/14 and Wnl Level: 66.7 on 01/07 current level on low side; will repeat -liver/ammonia: WNL -patient now willing to interact with telegraphic typewriter installer and discuss treatment; prior to today patient refused to directly talk with telegraphic typewriter installer despite daily attemps; telegraphic typewriter installer continues to daily assess patient by over hearing her talk to others peers and staff, observing her in the milieu and getting reports by multiple staff members Approved medications for substitute judgment include: Haldol: probably helpful Zyprexa up to 40mg: partially effective Geodon: Not Effective Depakote: Effective lithium: Effective Ativan I spent minutes with the patient and/or on the patient floor today, greater than?50% of which was spent counseling/coordinating care. Reason for contiued inpatient stay Substantial Risk for: inability to function and rapid decompensation
[2022-01-15 11:06] VITALS: BP 111/69; PULSE 81; TEMP 36.6; O2SAT 98
[2022-01-15] MEDS: Lithium Carbonate ER 450 MG TABLET.ER 900 MG PO (22:37)
[2022-01-15] MEDS: Divalproex Sodium ER 250 MG TAB.ER.24H PO (22:37)
[2022-01-15] MEDS: OLANZapine 10 MG TABLET PO (22:37)
[2022-01-15] MEDS: Divalproex Sodium ER 500 MG TAB.ER.24H 1500 MG PO (22:37)
[2022-01-15] MEDS: Melatonin 3 MG TABLET 12 MG PO (22:38)
[2022-01-15 22:48] VITALS: BP 110/58; PULSE 71
[2022-01-16 09:08] VITALS: BP 115/72; PULSE 65; RESP 16; TEMP 36.6; O2SAT 100
--- NOTE | 2022-01-16 13:28 | HO.PSYCHPN ---
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 01/11 although patient remains with paranoid delusions, she has been able to demonstrate an ability to cope with them and keep them more to herself. She has made amends with this director underwriter sales and now has a very strong rapport; she has also made amends with her mother. At this time team has reconsidered the need for her to go to [facility]. While being at a long-term state facility would given opportunity to try other medications, should a new court add them, there is no guarantee that these medications would reduce her delusional thinking any further. Patient may very well be able to tolerate and be successful in the community at her current presentation. Also as director underwriter sales has mentioned it is imperative that she feels it's possible to have a close finley with her providers and forcing her to go to a state hospital could impair that. Furthermore, she will have a VNA at home and extensive outpt support; she plans to continue taking medications and may very well be amenable to making further meds changes while in the community. 01/15/2022 Continue plan of care monitor delusional preoccupations and response to medication 01/16/2022 Continue plan of care discharge planning seems less delusional E preoccupied remains hypomanic PLAN: [address] court Q 15 minute checks on 11/04 Court ordered involuntary commitment and substituted judgment -Zyprexa 10 mg IM p.r.n. if refuses Depakote/lithium/zyprexa 1. Antipsychotic: Zyprexa LOWER back to Zyprexa 10 mg q.h.s QTC WNL DISCONTINUE? Haldol: although court ordered, pt c/o side-effects and though these side-effects are mild (or non-existent), pt feels strongly that Zyprexa works much better and asks for Haldol to be removed. 2. [facility]: CONTINUE [facility] ER 900mg qhs for continued hypomania; returned to [facility]; (COURT ORDERED:? GIVE ZYPREXA IMIF REFUSES). Dec lithium ER to 450 mg due to sedation. -DO NOT LOWER LITHIUM DOSE; She has been floridly manic for a year; sometimes mistakes normal functioning for sedation -[facility] level on low side /TSH/BUN/creatinine WnL Level 0.74 on 01/07 3. Depakote: Continue Depakote ER 1500mg q.h.s. (COURT ORDERED:? GIVE ZYPREXA IM 10 MG IF REFUSES) -Valproic level: 77.3; repeated on 12/14 and Wnl Level: 66.7 on 01/07 current level on low side; will repeat -liver/ammonia: WNL -patient now willing to interact with director underwriter sales and discuss treatment; prior to today patient refused to directly talk with director underwriter sales despite daily attemps; director underwriter sales continues to daily assess patient by over hearing her talk to others peers and staff, observing her in the milieu and getting reports by multiple staff members Approved medications for substitute judgment include: Haldol: probably helpful Zyprexa up to 40mg: partially effective Geodon: Not Effective Depakote: Effective lithium: Effective Ativan I spent minutes with the patient and/or on the patient floor today, greater than?50% of which was spent counseling/coordinating care. Reason for contiued inpatient stay Substantial Risk for: inability to function and rapid decompensation
[2022-01-16 16:48] VITALS: BP 113/70; PULSE 77; RESP 18; TEMP 36.6; O2SAT 100
[2022-01-16] MEDS: Divalproex Sodium ER 500 MG TAB.ER.24H 1500 MG PO (22:49)
[2022-01-16] MEDS: Divalproex Sodium ER 250 MG TAB.ER.24H PO (22:50)
[2022-01-16] MEDS: OLANZapine 10 MG TABLET PO (22:51)
[2022-01-16] MEDS: Lithium Carbonate ER 450 MG TABLET.ER 900 MG PO (22:51)
[2022-01-16] MEDS: Melatonin 3 MG TABLET 12 MG PO (22:56)
[2022-01-17 08:00] VITALS: BP 88/46; PULSE 64; TEMP 36.6
--- NOTE | 2022-01-17 09:09 | HO.PSYCHPN ---
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 mgmt. 01/01: Will increase Melatonin to 12 mg. Consider increasing dose of her mood stabilizers. 01/02: Increase Depakote to 1,750 mg HS. 01/04 will consider increasing zyprexa (awake more at night; remains delusional, triggered by perceived traumas) -not actually increased until 01/06 01/05 add UA since frequently waking up to urinate (could also be due to lithium; denies any dysuria/frequency/urgency) 01/06 increased Zyprexa to 15mg 01/07 says increased zyprexa making her too tired; global technical writer explained pt remains triggered by her hx of perceived traumas and so she agrees to continue taking it over the weekend and re-evaluate next week 01/10 remains with paranoid delusions, however is comfortable with focusing on them less and accepting them as the past...most recent example is making amends w/ her mother, reconciling with her despite believing she is currently pending court for federal charges for trying to poison her. Pt wants zyprexa back to 10mg; while global technical writer thinks she's doing better on 15mg, the improvement is mininal and patients adherence is more important. 01/11 although patient remains with paranoid delusions, she has been able to demonstrate an ability to cope with them and keep them more to herself. She has made amends with this global technical writer and now has a very strong rapport; she has also made amends with her mother. At this time team has reconsidered the need for her to go to [facility]. While being at a long-term state facility would given opportunity to try other medications, should a new court add them, there is no guarantee that these medications would reduce her delusional thinking any further. Patient may very well be able to tolerate and be successful in the community at her current presentation. Also as global technical writer has mentioned it is imperative that she feels it's possible to have a close finley with her providers and forcing her to go to a state hospital could impair that. Furthermore, she will have a VNA at home and extensive outpt support; she plans to continue taking medications and may very well be amenable to making further meds changes while in the community. 01/15/2022 Continue plan of care monitor delusional preoccupations and response to medication 01/16/2022 Continue plan of care discharge planning seems less delusional E preoccupied remains hypomanic PLAN: [address] court Q 15 minute checks on 11/04 Court ordered involuntary commitment and substituted judgment -Zyprexa 10 mg IM p.r.n. if refuses Depakote/lithium/zyprexa 1. Antipsychotic: Zyprexa LOWER back to Zyprexa 10 mg q.h.s QTC WNL DISCONTINUE? Haldol: although court ordered, pt c/o side-effects and though these side-effects are mild (or non-existent), pt feels strongly that Zyprexa works much better and asks for Haldol to be removed. 2. Skidmore: CONTINUE Skidmore ER 900mg qhs for continued hypomania; returned to Lithobid; (COURT ORDERED:? GIVE ZYPREXA IMIF REFUSES). Dec lithium ER to 450 mg due to sedation. -DO NOT LOWER LITHIUM DOSE; She has been floridly manic for a year; sometimes mistakes normal functioning for sedation -Skidmore level on low side /TSH/BUN/creatinine WnL Level 0.74 on 01/07 3. Depakote: Continue Depakote ER 1500mg q.h.s. (COURT ORDERED:? GIVE ZYPREXA IM 10 MG IF REFUSES) -Valproic level: 77.3; repeated on 12/14 and Wnl Level: 66.7 on 01/07 current level on low side; will repeat -liver/ammonia: WNL -patient now willing to interact with global technical writer and discuss treatment; prior to today patient refused to directly talk with global technical writer despite daily attemps; global technical writer continues to daily assess patient by over hearing her talk to others peers and staff, observing her in the milieu and getting reports by multiple staff members Approved medications for substitute judgment include: Haldol: probably helpful Zyprexa up to 40mg: partially effective Geodon: Not Effective Depakote: Effective lithium: Effective Ativan I spent minutes with the patient and/or on the patient floor today, greater than?50% of which was spent counseling/coordinating care. Reason for contiued inpatient stay Substantial Risk for: stable for discharge
[2022-01-17 17:13] VITALS: BP 108/87; PULSE 72; TEMP 36.9; O2SAT 98
[2022-01-17] MEDS: OLANZapine 10 MG TABLET PO (22:33)
[2022-01-17] MEDS: Melatonin 3 MG TABLET 12 MG PO (22:33)
[2022-01-17] MEDS: Divalproex Sodium ER 500 MG TAB.ER.24H 1500 MG PO (22:33)
[2022-01-17] MEDS: Divalproex Sodium ER 250 MG TAB.ER.24H PO (22:33)
[2022-01-17] MEDS: Lithium Carbonate ER 450 MG TABLET.ER 900 MG PO (22:33)
[2022-01-18 09:00] VITALS: BP 104/60; PULSE 84; TEMP 36.4
--- NOTE | 2022-01-18 17:39 | HO.PSYCHPN ---
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 lithium and/or VPA may be more helpful for her (she was referred to discuss with attending neftali when he returns). otherwise continue current mgmt. 01/01: Will increase Melatonin to 12 mg. Consider increasing dose of her mood stabilizers. 01/02: Increase Depakote to 1,750 mg HS. 01/04 will consider increasing zyprexa (awake more at night; remains delusional, triggered by perceived traumas) -not actually increased until 01/06 01/05 add UA since frequently waking up to urinate (could also be due to lithium; denies any dysuria/frequency/urgency) 01/06 increased Zyprexa to 15mg 01/07 says increased zyprexa making her too tired; property underwriter explained pt remains triggered by her hx of perceived traumas and so she agrees to continue taking it over the weekend and re-evaluate next week 01/10 remains with paranoid delusions, however is comfortable with focusing on them less and accepting them as the past...most recent example is making amends w/ her mother, reconciling with her despite believing she is currently pending court for federal charges for trying to poison her. Pt wants zyprexa back to 10mg; while property underwriter thinks she's doing better on 15mg, the improvement is mininal and patients adherence is more important. 01/11 although patient remains with paranoid delusions, she has been able to demonstrate an ability to cope with them and keep them more to herself. She has made amends with this property underwriter and now has a very strong rapport; she has also made amends with her mother. At this time team has reconsidered the need for her to go to [facility]. While being at a long-term state facility would given opportunity to try other medications, should a new court add them, there is no guarantee that these medications would reduce her delusional thinking any further. Patient may very well be able to tolerate and be successful in the community at her current presentation. Also as property underwriter has mentioned it is imperative that she feels it's possible to have a close finley with her providers and forcing her to go to a state hospital could impair that. Furthermore, she will have a VNA at home and extensive outpt support; she plans to continue taking medications and may very well be amenable to making further meds changes while in the community. 01/15/2022 Continue plan of care monitor delusional preoccupations and response to medication 01/16/2022 Continue plan of care discharge planning seems less delusional E preoccupied remains hypomanic 01/18 pt remains at new baseline which is friendly, appropriate with others and though still a little hypomanic and without insight into paranoid delusions, remains able to interact appropriately with peers, keeping the expression of delusional thoughts to a minimum. Daily, pt thanks property underwriter for help and says that her medications are working very well and she's grateful for them. Pt looking forward to returning home having made amends with her mother (despite convinced of paranoid delusions she was part of conspiracy). Chief Radiation Therapist and SW have talked though different ways pt may get triggered in the community and patient feels she'll be able to tolerate it and accept a certain level of it; patient has a plan to deal with them should they become overwhelming which is to go to respite with her [facility] team. Pt does not want to go to respite on discharge, but to her parents. PLAN: [address] court Q 15 minute checks on 11/04 Court ordered involuntary commitment and substituted judgment -Zyprexa 10 mg IM p.r.n. if refuses Depakote/lithium/zyprexa 1. Antipsychotic: Zyprexa LOWER back to Zyprexa 10 mg q.h.s QTC WNL DISCONTINUE? Haldol: although court ordered, pt c/o side-effects and though these side-effects are mild (or non-existent), pt feels strongly that Zyprexa works much better and asks for Haldol to be removed. 2. Redbird Smith: CONTINUE Redbird Smith ER 900mg qhs for continued hypomania; returned to [facility]; (COURT ORDERED:? GIVE ZYPREXA IMIF REFUSES). Dec lithium ER to 450 mg due to sedation. -DO NOT LOWER LITHIUM DOSE; She has been floridly manic for a year; sometimes mistakes normal functioning for sedation -Redbird Smith level on low side /TSH/BUN/creatinine WnL Level 0.74 on 01/07 3. Depakote: Continue Depakote ER 1500mg q.h.s. (COURT ORDERED:? GIVE ZYPREXA IM 10 MG IF REFUSES) -Valproic level: 77.3; repeated on 12/14 and Wnl Level: 66.7 on 01/07 current level on low side; will repeat -liver/ammonia: WNL -patient now willing to interact with property underwriter and discuss treatment; prior to today patient refused to directly talk with property underwriter despite daily attemps; property underwriter continues to daily assess patient by over hearing her talk to others peers and staff, observing her in the milieu and getting reports by multiple staff members Approved medications for substitute judgment include: Haldol: probably helpful Zyprexa up to 40mg: partially effective Geodon: Not Effective Depakote: Effective lithium: Effective Ativan I spent minutes with the patient and/or on the patient floor today, greater than?50% of which was spent counseling/coordinating care. Reason for contiued inpatient stay Substantial Risk for: stable for discharge Time Spent With Patient Time: Total time managing care of this patient today ____ minutes.
[2022-01-18 18:00] VITALS: BP 105/67; PULSE 77; TEMP 36.9; O2SAT 98
[2022-01-18] MEDS: Melatonin 3 MG TABLET 12 MG PO (22:30)
[2022-01-18] MEDS: Divalproex Sodium ER 500 MG TAB.ER.24H 1500 MG PO (22:30)
[2022-01-18] MEDS: Lithium Carbonate ER 450 MG TABLET.ER 900 MG PO (22:30)
[2022-01-18] MEDS: Divalproex Sodium ER 250 MG TAB.ER.24H PO (22:31)
[2022-01-18] MEDS: OLANZapine 10 MG TABLET PO (22:31)
--- NOTE | 2022-01-19 08:16 | P.PNPSI_ITS ---
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 12 mg. Consider increasing dose of her mood stabilizers. 01/02: Increase Depakote to 1,750 mg HS. 01/04 will consider increasing zyprexa (awake more at night; remains delusional, triggered by perceived traumas) -not actually increased until 01/06 01/05 add UA since frequently waking up to urinate (could also be due to lithium; denies any dysuria/frequency/urgency) 01/06 increased Zyprexa to 15mg 01/07 says increased zyprexa making her too tired; speech writer explained pt remains triggered by her hx of perceived traumas and so she agrees to continue taking it over the weekend and re-evaluate next week 01/10 remains with paranoid delusions, however is comfortable with focusing on them less and accepting them as the past...most recent example is making amends w/ her mother, reconciling with her despite believing she is currently pending court for federal charges for trying to poison her. Pt wants zyprexa back to 10mg; while speech writer thinks she's doing better on 15mg, the improvement is mininal and patients adherence is more important. 01/11 although patient remains with paranoid delusions, she has been able to demonstrate an ability to cope with them and keep them more to herself. She has made amends with this speech writer and now has a very strong rapport; she has also made amends with her mother. At this time team has reconsidered the need for her to go to [facility]. While being at a long-term state facility would given opportunity to try other medications, should a new court add them, there is no guarantee that these medications would reduce her delusional thinking any further. Patient may very well be able to tolerate and be successful in the community at her current presentation. Also as speech writer has mentioned it is imperative that she feels it's possible to have a close finley with her providers and forcing her to go to a state hospital could impair that. Furthermore, she will have a VNA at home and extensive outpt support; she plans to continue taking medications and may very well be amenable to making further meds changes while in the community. 01/15/2022 Continue plan of care monitor delusional preoccupations and response to medication 01/16/2022 Continue plan of care discharge planning seems less delusional E preoccupied remains hypomanic 01/18 pt remains at new baseline which is friendly, appropriate with others and though still a little hypomanic and without insight into paranoid delusions, remains able to interact appropriately with peers, keeping the expression of delusional thoughts to a minimum. Daily, pt thanks speech writer for help and says that her medications are working very well and she's grateful for them. Pt looking forward to returning home having made amends with her mother (despite convinced of paranoid delusions she was part of conspiracy). C[employer] Helper and SW have talked though different ways pt may get triggered in the community and patient feels she'll be able to tolerate it and accept a certain level of it; patient has a plan to deal with them should they become overwhelming which is to go to respite with her [facility] team. Pt does not want to go to respite on discharge, but to her parents. 01/19 [facility] staff would like pt to go to repsite first; pt is politely adamant to go to her parents first and see how she does. C[employer] Mason Helper and MYLES Jay think patient can handle going home and both agree that paramount is patients relationship wtih outpt team and do not want to risk her feeling coerced. Will continue to discuss. PLAN: [address] court Q 15 minute checks on 11/04 Court ordered involuntary commitment and substituted judgment -Zyprexa 10 mg IM p.r.n. if refuses Depakote/lithium/zyprexa 1. Antipsychotic: Zyprexa Continue at Zyprexa 10 mg q.h.s (higher doses don't seem to add much benefit) QTC WNL dc'd Haldol: although court ordered, pt c/o side-effects and though these side- effects are mild (or non-existent), pt feels strongly that Zyprexa works much better and asks for Haldol to be removed. 2. [place]: CONTINUE [place] ER 900mg qhs for continued hypomania; returned to [facility]; (COURT ORDERED:? GIVE ZYPREXA IMIF REFUSES). Dec lithium ER to 450 mg due to sedation. -DO NOT LOWER LITHIUM DOSE; She has been floridly manic for a year; sometimes mistakes normal functioning for sedation -[place] level on low side /TSH/BUN/creatinine WnL Level 0.74 on 01/07 3. Depakote: Continue Depakote ER 1500mg q.h.s. (COURT ORDERED:? GIVE ZYPREXA IM 10 MG IF REFUSES) -Valproic level: 77.3; repeated on 12/14 and Wnl Level: 66.7 on 01/07 current level on low side; will repeat -liver/ammonia: WNL -patient now willing to interact with speech writer and discuss treatment; prior to today patient refused to directly talk with speech writer despite daily attemps; speech writer continues to daily assess patient by over hearing her talk to others peers and staff, observing her in the milieu and getting reports by multiple staff members Approved medications for substitute judgment include: Haldol: probably helpful Zyprexa up to 40mg: partially effective Geodon: Not Effective Depakote: Effective lithium: Effective Ativan I spent minutes with the patient and/or on the patient floor today, greater than?50% of which was spent counseling/coordinating care. Patient educated on: therapeutic strategies Informed Consent: understands and further education needed Reason for contiued inpatient stay Substantial Risk for: stable for discharge Time Spent With Patient Time: Total time managing care of this patient today ____ minutes.
[2022-01-19 11:46] VITALS: BP 111/69; PULSE 89; RESP 18; TEMP 36.4; O2SAT 98
[2022-01-19 16:05] VITALS: BP 107/59; PULSE 77; TEMP 36.6
[2022-01-19] MEDS: Lithium Carbonate ER 450 MG TABLET.ER 900 MG PO (22:30)
[2022-01-19] MEDS: Divalproex Sodium ER 500 MG TAB.ER.24H 1500 MG PO (22:31)
[2022-01-19] MEDS: Divalproex Sodium ER 250 MG TAB.ER.24H PO (22:31)
[2022-01-19] MEDS: Melatonin 3 MG TABLET 12 MG PO (22:33)
[2022-01-19] MEDS: OLANZapine 10 MG TABLET PO (22:33)
[2022-01-20 06:00] VITALS: BP 116/55; PULSE 76; RESP 16; TEMP 36.6
--- NOTE | 2022-01-20 15:40 | HO.PSYCHPN ---
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 remain willingly adherent. more calm in milue; still does talk about being persecuted in groups, but she's able to be redirected; however, in 1:1 sessions, of if talking to just one patient, she immediately launches in to pressured ramble, repeating paranoid delusions, listing persecutors and supporters that will continue until other person breaks off from the convesation. 12/25/21: no changes 12/26/21: change haldol from 5 bid to 10mg at bedtime starting 12/27. Will get 5mg tonight- as received AM dose of 5mg 12/27 Patient has improved.? She consistently says she likes the medication she is on including Zyprexa. ?And bond underwriter agrees that this regimen has been helpful.? Patient has been on Haldol for 3 days. ?While bond underwriter continues to wonder if haloperidol would further reduce her paranoid delusions, there is no guarantee it would do so; and while this medication could be forced as court order exists, it would certainly damage the therapeutic rapport that is been so difficult to create. ?At this time, it is bond underwriter's opinion that it is best to continue to align with patient and support the therapeutic relationship as she will need long-term psychiatric guidance which necessitates her having jacob in provider-patient therapeutic [place]. -Application has been made to [facility].? Team will continue to discuss whether patient continues to need this longer term admission or if she could perhaps try living in the community. 12/29 continue current treatment plan 12/30 continue tx. increase melatonin to 6mg po qhs per pt request. 12/31: incr melatonin to 9 mg per pt request. educated re possibility her insomnia is lingering manic Sx and that perhaps higher dosing/serum levels of lithium and/or VPA may be more helpful for her (she was referred to discuss with attending neftali when he returns). otherwise continue current mgmt. 01/01: Will increase Melatonin to 12 mg. Consider increasing dose of her mood stabilizers. 01/02: Increase Depakote to 1,750 mg HS. 01/04 will consider increasing zyprexa (awake more at night; remains delusional, triggered by perceived traumas) -not actually increased until 01/06 01/05 add UA since frequently waking up to urinate (could also be due to lithium; denies any dysuria/frequency/urgency) 01/06 increased Zyprexa to 15mg 01/07 says increased zyprexa making her too tired; bond underwriter explained pt remains triggered by her hx of perceived traumas and so she agrees to continue taking it over the weekend and re-evaluate next week 01/10 remains with paranoid delusions, however is comfortable with focusing on them less and accepting them as the past...most recent example is making amends w/ her mother, reconciling with her despite believing she is currently pending court for federal charges for trying to poison her. Pt wants zyprexa back to 10mg; while bond underwriter thinks she's doing better on 15mg, the improvement is mininal and patients adherence is more important. 01/11 although patient remains with paranoid delusions, she has been able to demonstrate an ability to cope with them and keep them more to herself. She has made amends with this bond underwriter and now has a very strong rapport; she has also made amends with her mother. At this time team has reconsidered the need for her to go to [facility]. While being at a long-term state facility would given opportunity to try other medications, should a new court add them, there is no guarantee that these medications would reduce her delusional thinking any further. Patient may very well be able to tolerate and be successful in the community at her current presentation. Also as bond underwriter has mentioned it is imperative that she feels it's possible to have a close finley with her providers and forcing her to go to a state hospital could impair that. Furthermore, she will have a VNA at home and extensive outpt support; she plans to continue taking medications and may very well be amenable to making further meds changes while in the community. 01/15/2022 Continue plan of care monitor delusional preoccupations and response to medication 01/16/2022 Continue plan of care discharge planning seems less delusional E preoccupied remains hypomanic 01/18 pt remains at new baseline which is friendly, appropriate with others and though still a little hypomanic and without insight into paranoid delusions, remains able to interact appropriately with peers, keeping the expression of delusional thoughts to a minimum. Daily, pt thanks bond underwriter for help and says that her medications are working very well and she's grateful for them. Pt looking forward to returning home having made amends with her mother (despite convinced of paranoid delusions she was part of conspiracy). Bleach Chlorinator and SW have talked though different ways pt may get triggered in the community and patient feels she'll be able to tolerate it and accept a certain level of it; patient has a plan to deal with them should they become overwhelming which is to go to respite with her [facility] team. Pt does not want to go to respite on discharge, but to her parents. 01/19 [facility] staff would like pt to go to repsite first; pt is politely adamant to go to her parents first and see how she does. Bleach Chlorinator and SW Misty think patient can handle going home and both agree that paramount is patients relationship wtih outpt team and do not want to risk her feeling coerced. Will continue to discuss. 01/20 Patient reports doing well and thankful for help she has received on the unit. She is excited to go home tomorrow. She reiterates how much she is grateful for help received and how much the medications have proved effective and that she will continue taking them. Patient shared her plan for adhering to medications and she will follow her father's discipline of writing down all the medications and checking off when they are taking each day and in no book. They discussed this together. Patient actually apologized for how she spoke to and treated this bond underwriter early on in her admission saying that she was very emotional, reactive and reacting to her trauma and that she took it out on bond underwriter and other staff even though she said bond underwriter had nothing to do with her trauma. Bleach Chlorinator and patient discussed how she will handle being in the community and discerning between normal automobile traffic in front of her house verses what she perceived was to be her harassment. Patient said she understands that due to trauma she may mistakingly misinterpret things and that she will discuss them with her out reach workers should she get concerned. Bleach Chlorinator reviewed risks/side-effects of medications since pt is now thinking more clearly; pt asked questions and understood and wants to continue with regimen. In a moment of lucidity and deep insight, patient said she realized that because she felt abandoned by her family members, and felt the need for a new family, she took the good feelings and impressions she has of her father and imposed them on other people- that she does not know- including former medical device sales consultant Ellen Ramirez; she said by doing this she created a new family from which she felt supported. She herself Marveled at the irony of how she could feel so close to people she has never met. In turn, she commented on how odd it would be for these people...if she actually ever ran into them...to experience her being intensely familiar and close to them, when they do not know her at all. She explained this transference was not of her doing, but rather it was her mind that was doing this in response to trauma. She called the phenomenon psychological transference. -this is the 1st time that bond underwriter has ever heard patient acknowledged that she does not know Ana Villar or the other elites that she mentions by name and that they do not know her and that her association with them is mostly in her mind. She remains with paranoid delusions and still believes that Ana Villar cleaned up the rifraff in the [place] police however her ability to see herself psychologically is promising. Bleach Chlorinator and team conclude that patient is appropriate to continue treatment in the community. She of course remains at risk for decompensation however she is much improved and returns to live with her parents who love and support her and with whom she feels at peace. Patient also has an extensive out reach team that is being assembled to help with her stability. Patient is adamant that she will continue taking her medications as prescribed as she feels they have helped her considerably. She is future oriented and has plans in place should she start to again feel persecuted. Patient is w/out SI or HI and has not had any SI or HI throughout this admission. And while she will be prone to misinterpreting situations or other people, she has a markedly improved ability to interact appropriately with others. Patient is not in imminent risk for harm to self or others and her request for discharge home to her parents is honored. PLAN: DC home Q 15 minute checks 1. Antipsychotic: Zyprexa Continue at Zyprexa 10 mg q.h.s (higher doses don't seem to add much benefit) QTC WNL dc'd Haldol: although court ordered, pt c/o side-effects and though these side-effects are mild (or non-existent), pt feels strongly that Zyprexa works much better and asks for Haldol to be removed. 2. [place]: CONTINUE [place] ER 900mg qhs for continued hypomania; returned to Lithobid; (COURT ORDERED:? GIVE ZYPREXA IMIF REFUSES). Dec lithium ER to 450 mg due to sedation. -DO NOT LOWER LITHIUM DOSE; She has been floridly manic for a year; sometimes mistakes normal functioning for sedation -[place] level on low side /TSH/BUN/creatinine WnL Level 0.74 on 01/07 3. Depakote: Continue Depakote ER 1500mg q.h.s. (COURT ORDERED:? GIVE ZYPREXA IM 10 MG IF REFUSES) -Valproic level: 77.3; repeated on 12/14 and Wnl Level: 66.7 on 01/07 current level on low side; will repeat -liver/ammonia: WNL -patient now willing to interact with bond underwriter and discuss treatment; prior to today patient refused to directly talk with bond underwriter despite daily attemps; bond underwriter continues to daily assess patient by over hearing her talk to others peers and staff, observing her in the milieu and getting reports by multiple staff members Approved medications for substitute judgment include: Haldol: probably helpful Zyprexa up to 40mg: partially effective Geodon: Not Effective Depakote: Effective lithium: Effective Ativan I spent minutes with the patient and/or on the patient floor today, greater than?50% of which was spent counseling/coordinating care. Patient educated on: diagnosis, medication risk/benefits and therapeutic strategies Informed Consent: understands, does not understand and further education needed Reason for contiued inpatient stay Substantial Risk for: stable for discharge Time Spent With Patient Time: Total time managing care of this patient today ____ minutes.
[2022-01-20 18:00] VITALS: BP 118/78; PULSE 80; RESP 16; TEMP 36.6; O2SAT 98
[2022-01-20] MEDS: Divalproex Sodium ER 500 MG TAB.ER.24H 1500 MG PO (20:36)
[2022-01-20] MEDS: Melatonin 3 MG TABLET 12 MG PO (20:37)
[2022-01-20] MEDS: Lithium Carbonate ER 450 MG TABLET.ER 900 MG PO (20:37)
[2022-01-20] MEDS: OLANZapine 10 MG TABLET PO (20:37)
[2022-01-20] MEDS: Divalproex Sodium ER 250 MG TAB.ER.24H PO (20:37)
--- NOTE | 2022-01-21 09:52 | PM.PSYDC ---
DS: Providers Provider Date of Service: 01/21/22 Date of admission: 10/23/21 11:01 Date of discharge: 01/21/22 Primary care physician: Isaac Physician Attending physician on admission: Demetrius Ribeiro Attending physician on discharge: Aj Oneill DS: Diagnosis Discharge Diagnosis (1) Bipolar affective disorder, manic, severe, with psychotic behavior: Status: Acute (2) Post traumatic stress disorder (PTSD): Status: Acute DS: Medications Discharge Medications Home Medications: Previous Rx's Medication Instructions Recorded divalproex 250 mg tablet,extended 250 mg PO BEDTIME 30 days #30 tabs 01/21/22 release 24 hr divalproex 500 mg tablet,extended 1,500 mg PO BEDTIME 30 days #90 01/21/22 release 24 hr tabs lithium carbonate 450 mg 900 mg PO BEDTIME 30 days #60 tabs 01/21/22 tablet,extended release melatonin 10 mg tablet 10 mg PO BEDTIME PRN sleep 30 days 01/21/22 #30 tabs olanzapine 10 mg tablet 10 mg PO BEDTIME 30 days #30 tabs 01/21/22 Mental Status Exam Mental Status Exam Narrative: Pt is alert and oriented; behavior is friendly, cooperative; intermittently hypomanic but it's mild and not intrusive; she is still talking outloud to herself expressing paranoid delusions, however she does so almost exclusively in privacy of her room or shower or in 1:1 with staff; for brief moments patient will make references to these paranoid thoughts with peers but it stays as a reference point; she does not seem to dwell on it with peers and has appropriate conversations w/ them about other things; patient is not in distress; dressed in casual attire with good hygiene; mood is described as great and affect more congruent, bright, calm (though can at times become expansive and sometimes euphoric); eye contact appropriate; Speech is a little pressured, hyperverbal but much less and she remains able to be interrupted and listens quietly to others; no psychomotor agitation present; thought process is goal oriented and linear though frequently circumstantial; sometimes tangential; thought content is on discharge to the community; also it remains with the same delusional, paranoid ideations with some grandiosity; and while she talks about other pertinent things during groups or in the milue with peers, she at some point invariably references on how she has been persecuted by [facility]...[employer]...[place] police... and referencing numerous public officials and FBI that are on her case... She denies any SI/HI. No AH; Patients insight and judgment are impaired but have improved and are adequate. 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 Patient now brought to [facility] on [address] after being evaluated at home? by the crisis team due to increasing paranoid ideation, delusions, and suicidal ideation; seen by the crisis team on at least 2 other occasions but discharged after evaluation. On admission, patient? reports that she has been the victim white supremacy, she believes that her neighbors? orchestrate conspiracies against her by having cars drive by back and forth in front of her house, she believes that she was sexually exploited and victimized by the police, she believes that the police gave her mother soap that was laced with narcotics and poison and then had her mom gave her a soap, believes that a therapist is monitoring her electronics and sending her messages through her iPad calling her N and other racial epithets. She believes that the [employer] where she worked up until January 2020 is involved in the conspiracy against her, she reports she has been involved with [employer], the FBI and the bankruptcy attorney who have been supportive of her case and her plight and that there are Federal charges against her mom for trying to poison her.? She believes that there were threats against her life.? Throughout the interview the patient was referring? to different persons involved in?conspiracy against her as well as defending her case including? police, her mom, the? 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 an FBI agent named Terry Browne, senior trial attorney Ellen Villar and others. she says that she filed 40 police reports about these incidents... She has not been sleeping.? She says I have not slept for a year and half .? she has had significant weight loss believing that the food was poisoned by her mother. She reports due to the severity of the threats against her life ( she believed that a person has been sending her messages through the iPad telling her to kill herself and threatening her with deaf ) she 1 time went and started look through dumpsters to try to find something to hang herself with sometime in September of 2021 but SI resolved and so remained. Excerpt from previous admission ( 07/2020): ... perseverative on discrimination she feels she experienced at her last job...started dating a ?bad dude ? 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 that all would participate in, ostensibly to monitor or test patient.? Patient reports that this orchestration included scenarios where coworkers, specifically her boss would give subliminal messages and sometimes make out loud derogatory and racist statements in her presence..She said she was called a ?black jerk,...black monkey...? Black sadistic cat ? and that her cell phone was being monitored and hacked and she received pictures of pigs and other objectionable texts.? Patient believes the [place] Police are intricately involved and together they have bugged her home including her father's ear piece with very sophisticated technology to continue monitoring patient and her behaviors...Patient says she has multiple lawsuits out and intends to Karolyn her wind projects supervisor and perhaps the police department as well. She got suicidal, thought of killing herself, but instead quit job and started feeling better. Hospital course: Hospital course is long and complicated. In summary, patient was floridly manic with pressured speech and perseverating on paranoid delusional thoughts. She was very angry and accusatory towards specific staff, believing they were part of her ring of persecutory. Patient remained grandiose believing she had a team of Federal investigators, the real estate executive assistant, homeland security and other elite political figures working to investigate and stop those who were cyber bullying and cyber harassing her. Patient had no insight. Team pursued involuntary commitment and substituted judgment and patient was committed to the hospital for treatment. She was started on lithium and then Depakote; some of her leeann subsided however she remained hyperverbal, hyperactive and with continued paranoid delusional beliefs. She was then started on Zyprexa which was titrated up to 40 mg however this seem to be little difference between 40 mg and 10 mg and it was eventually tapered back to 10 mg. She was briefly tried on Haldol and though it seemed to be helping, she complained she did not like it. On this regimen, lithium, Depakote and Zyprexa 10 mg patient over time improved. Her manic behavior subsided and she was able eventually able to participate in groups and socialize in the milieu appropriately. She was able to sleep and though she could still get hyperverbal at times, she was much more able to control herself and engage in a given take conversation. Patient was also able to make amends and re-engage with various staff members that she earlier refused to speak with at all, for giving them of their role in her persecution. Even more than that, patient eventually was able to gain insight to know that the staff members had nothing to do with does she believe her persecuting her and was only her PTSD symptoms getting in the way of her realizing this. Patient had insight to except that she has bipolar disorder as well as PTSD; she believes she has autism as well. She also almost daily reported how much the medications had been helping her and she was grateful for them and would continue taking them. Despite these improvements patient remained with paranoid, delusional thinking about having been persecuted and maintain that her mother tried to poison her and is being brought up on Federal charges; a bright note however is that patient's insight seem to continually expand and team remained optimistic about continued improvement. Team had initially applied to [facility] however patient had improved to the point where team agreed that patient was likely able to be successful in the community. Patient wanted to return home to live with her parents who welcomed her back (patient made amends with her mother). Instrument Technologist and team concluded that patient is appropriate to continue treatment in the community.? She of course remains at risk for decompensation however she is much improved and returns to live with her parents who love and support her and with whom she feels at peace.? Patient also has an extensive out reach team that is being assembled to help with her stability.? Patient is adamant that she will continue taking her medications as prescribed as she feels they have helped her considerably.? She is future oriented and has plans in place should she start to again feel persecuted.? Patient is w/out SI or HI and has not had any SI or HI throughout this admission.? And while she will be prone to misinterpreting situations or other people, she has a markedly improved ability to interact appropriately with others.? Patient is not in imminent risk for harm to self or others and her request for discharge home to her parents is honored. Instrument Technologist called and left message for patient's new outpatient provider to discuss case prior to their meeting; waiting for return call Med trials: Haldol: probably helpful Zyprexa up to 40mg: partially effective (10mg probably as helpful as 40) Geodon: Not Effective Status at Discharge Functional status at discharge: independent ambulation Overall status at discharge: patient is progressing back to baseline Time Spent with Patient Time attestation: Total time managing care of this patient today ____ minutes. Time spent: Greater than 30 minutes Discharge Plan Discharge Anticipated Discharge Date/Time: 01/21/22 13:00 Patient Disposition: Home, Self-Care Discharge Diagnosis: Bipolar disorder I; PtSD Referrals: Therapist: Debra Waters ([facility]) [Other] - 01/25/22 1:00 pm (In person at the office ) Psych Prescriber: Cesar Davila ([facility]) [Other] - 02/23/22 8:00 am (In person at the office ) Psych Prescriber: Cesar Davila ([facility]) [Other] - 03/23/22 9:00 am [facility] Visiting RN [Other] - 01/23/22 (Fax- [phone] CATHY will call to set up a visit time on 01/23/22 for the first visit. ) [facility] Pharmacy Teacher: Antonietta Munguia ([facility]) [Other] - 1 Week (Call Antonietta as needed with any questions, needs or for support. She will also be contacting you sometime next week. ) Stu Kulkarni MD [Physician] - 1 Week (left message to call us back for f/u appointment) Discharge Medications: New divalproex 500 mg Tablet Extended Release 24 Hr 1,500 mg PO BEDTIME 30 Days Qty: 90 1RF Rx Instructions: take together with 250mg tab divalproex 250 mg Tablet Extended Release 24 Hr 250 mg PO BEDTIME 30 Days Qty: 30 1RF lithium carbonate 450 mg Tablet Extended Release 900 mg PO BEDTIME 30 Days Qty: 60 1RF olanzapine 10 mg Tablet 10 mg PO BEDTIME 30 Days Qty: 30 1RF melatonin 10 mg tablet 10 mg PO BEDTIME PRN (Reason: sleep) 30 Days Qty: 30 1RF Discharge Orders: Discharge Order (Routine); Ordered 01/21/22 Ordered By: Aj Oneill Diet: Regular diet Activity on Discharge: As tolerated Stand Alone Forms: Patient Portal Discharge page, Community Support Care Plan Goals: Maintain mood and safe behaviors Take medications as prescribed Practice coping skills Continue with outpatient providers and reach out to them as needed Health Concerns: Mood stability Plan of Treatment: Follow up with your PCP, psychiatric provider and other outpatient providers regarding above concerns Take medications as prescribed Assessment: Risk assessment at time of discharge:? Patient was interviewed prior to discharge and found to be fully oriented and without any SI or HI. Patient has insight and demonstrates good judgment in terms of wanting to pursue treatment. Patient is not in imminent risk of harm to self or others and has a safety plan that includes presenting to the closest ER or calling 911 if feeling unsafe.? Patient has been observed closely by nursing and unit staff throughout admission; patient has not engaged in any behaviors that suggest dangerousness to self or others and has demonstrated appropriate behaviors and impulse control Discharge Date/Time: 01/21/22 15:22
== END 2022-01-21 15:22 | disposition home or self-care (01) | DRG 753 ==
LOC: HO.ED 20:43 → HO.PM5 10-23 11:13
PROVIDERS: Psychiatry & Neurology Psychiatry; Registered Nurse; Admitting Provider Psychiatry & Neurology Psychiatry; Emergency Provider Emergency Medicine; Visit Provider Psychiatry & Neurology Psychiatry
DX: F31.2 Bipolar disorder, current episode manic severe with psychotic features (principal); F43.10 Post-traumatic stress disorder, unspecified; Z20.822 Contact with and (suspected) exposure to COVID-19; Z98.84 Bariatric surgery status; Z79.899 Other long term (current) drug therapy
CPT/HCPCS: 36415; 80048; 80051; 80061; 80076; 80143; 80164; 80178; 80307; 81001; 81025; 82077; 82140; 82565; 82607; 82746; 83036; 84439; 84443; 84520; 85025; 87086; 87635; 93005; 99285

== ENCOUNTER → 2022-08-01 14:48 | Outpatient (BNVA) | payer OTHER, SELFPAY | PROVIDERS: Visit Provider Physician Assistant Surgical ==

== ENCOUNTER 2022-09-07 13:53 | Outpatient (AMB) | payer OTHER, SELFPAY ==
--- NOTE | 2022-09-07 13:55 | A.OFFVIS_ITS ---
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 SWL BMI 44.3 Allergies cat dander Allergy (Mild, Verified 09/07/22 14:03) Sneezing house dust Allergy (Mild, Verified 09/07/22 14:03) Sneezing house dust mite Allergy (Mild, Verified 09/07/22 14:03) Sneezing Medication List - Last Reconciled 09/07/22 by Carole Red PA-C divalproex ER 1,500 mg (3 x 500 mg) PO BEDTIME 30 days divalproex ER 250 mg PO BEDTIME 30 days ergocalciferol (vitamin D2) 1,250 mcg PO QWEEK levothyroxine 50 mcg PO DAILY lithium carbonate ER 900 mg (2 x 450 mg) PO BEDTIME 30 days melatonin 10 mg PO BEDTIME PRN 30 days olanzapine 10 mg PO BEDTIME 30 days phentermine 37.5 mg PO DAILY [Visiting Nurse Daily Visiting Nurse] HPI HPI Comments History of Present Illness Details This is a 37 year old woman who is s/p LSG At [facility] in 2016. Pre op weight was 300 lbs after she lost 50 ls preoperatively and lowest weight about 190 lbs. Pt then diagnosed with hypothyroidsim and started new psychiatric meds and gained 60 lbs back. She is interested in revision of previous LSG for continued weight. Her goal is to weigh about 140 lbs. . She reports first being concerned about her weight since 2014. She lives with her parents. She is unemp loyed presntly and takes care of her parents. Was started on phentermine 2 months by an director of undergraduate admissions, starting weight was 250 lbs. She wakes at: 12 pm, bed at 1 am - sleeps 9-11 hours per night. Breakfast: 2pm - ham and cheese sandwich and potatoes chips, Diet Snapple iced tea. Once a week ham and cheese ometlet with sausage or ndiaye. Lunch:5- 6pm - 1 thigh or wings --1 cup baked chicken, broccoli or salad. water After dinner: ocassionally bowl of potato chips Other snacks: none Liquids: No soda, no fruit juice Alcohol intake: none, tobacco: none, marijuana: none Exercise: Tatiana 3d/ week at home. Has membership to . Last mammogram: not yet Last pap smear: Oct 2022 control method: Mirena IUD GUZMAN: 0 ESS:0 GERD0: QOL:49 PFSH Medical History (Updated 09/07/22 @ 14:15 by Carole Red PA-C) Bipolar 1 disorder Bipolar affective disorder, manic, severe, with psychotic behavior Post traumatic stress disorder (PTSD) Surgical History (Updated 09/07/22 @ 14:15 by Carole Red PA-C) History of sleeve gastrectomy Hx of hand surgery Hx of tonsillectomy Status post panniculectomy Family History Mother Glaucoma Diabetes mellitus Father Hypertension Diabetes mellitus Parkinson disease Sister Fibroids Social History Household Members: Family Household Members Other:: mother and father Housing: House Do you presently have visiting nurse or other home services: No Alcohol intake: never Patient Tobacco Use Status: Never used Tobacco e-Cigarette/Vaping Use: Never Used Second Hand Smoke Exposure: No service: No Sexual orientation: Don't Know Physical Exam Vital Signs: Last Vital Signs Temp 99.0 F 09/07/22 14:01 Pulse 100 09/07/22 14:01 BP 118/71 09/07/22 14:01 Pulse Ox 98 09/07/22 14:01 Oxygen Delivery Method Room Air 09/07/22 14:01 BMI result Body Mass Index 45.0 Const General: cooperative, no acute distress and well developed Nutritional Appearance: obese Orientation/consciousness: patient oriented x3 HEENT Head: Yes normal to inspection Neck Neck: Yes normal visual inspection Thyroid: Thyroid normal Resp Effort & Inspection: normal respiratory effort Auscultation: clear to auscultation bilaterally Cardio Rate: regular rate Rhythm: regular rhythm Heart sounds: S1 normal heart sound present, S2 normal heart sound present and no murmurs GI Inspection: No distended and Yes obesity Palpation (GI): Soft to palpation, nontender and no guarding Skin General skin exam: no rashes or lesions noted and other (warm and dry) Wounds: no wounds Hair: normal Neuro General: patient oriented x3 Extrem General: Yes no pedal edema and Yes no calf tenderness Psych Attitude: cooperative Thought process: Normal thought process present Thought content: Normal thought content present Insight: Good insight present (Psych) Judgement: Good judgement present (Psych) Assessment & Plan Assessment & Plan (1) Morbid obesity: Code(s): E66.01 - Morbid (severe) obesity due to excess calories Plan: This is a 37 yo woman who is s/p LSG and is interested in revision. [facility] Blood work, h pylori , CXR, ECG, Abd ULS and UGI have been ordered. She is being scheduled for RD and BH initial consultations. She will start SWL classes and watch at 3 classes before her next appt with Corrie. Patient will need extra support through our SWL program. Patient shares a cell phone with her mother. 1. Adequate sleep of 7-8 hours per night discussed 2. Healthy meal plan - All meals/MR's need to take 20 minutes to complete 2 pm - 30 gram shake 5 pm- dinner of 4 oz lean protein, 4 oz vegetable, 1/2 serving fruit 8 pm- bar or yogurt 11 pm - 30 gram shake Exercise - Cardio 5 d week = treadmill at speed 2.8, incline 2-7 - to burn 300 calories Or Tatiana class at home. The importance of avoiding and breast feeding for at least 18 months after bariatric surgery was discussed in the information session and was reinforced today. Pt will purchase body composition analyzer (recommended list given to patient) and weight herself weekly. Next appt with me in 3 weeks. Text me with any questions and weekly weights. Patient is morbidly obese and is not considered stable at this time.?I spent a total of 60 minutes reviewing/updating records, examining the patient and counseling the patient on weight management as detailed above. (2) Post traumatic stress disorder (PTSD): Code(s): F43.10 - Post-traumatic stress disorder, unspecified (3) Bipolar affective disorder, manic, severe, with psychotic behavior: Comment: r/o schizoaffective Code(s): F31.2 - Bipolar disorder, current episode manic severe with psychotic features (4) History of sleeve gastrectomy: Comment: 06/03/2015- [facility] Code(s): Z90.3 - Acquired absence of stomach [part of] (5) Status post panniculectomy: Comment: 04/2018- [facility] Code(s): Z98.890 - Other specified postprocedural states Coding Level of Care Code New Pt Level 5 (15317) Diagnoses Morbid obesity E66.01 Post traumatic stress disorder (PTSD) F43.10 Bipolar affective disorder, manic, severe, with psychotic behavior F31.2 History of sleeve gastrectomy Z90.3 Status post panniculectomy Z98.890
[2022-09-07 14:01] VITALS: BP 118/71; PULSE 100; TEMP 37.2; O2SAT 98; BMI 45.0
== END 2022-09-07 15:07 | disposition home or self-care (01) ==
PROVIDERS: Visit Provider Physician Assistant
DX: E66.01 Morbid (severe) obesity due to excess calories (principal); Z68.42 Body mass index [BMI] 45.0-49.9, adult; Z90.3 Acquired absence of stomach [part of]; Z98.84 Bariatric surgery status
CPT/HCPCS: 99205

== ENCOUNTER → 2022-09-07 13:53 | Outpatient (BNVA) | payer OTHER, SELFPAY | PROVIDERS: Visit Provider Physician Assistant | DX: E66.01 Morbid (severe) obesity due to excess calories (principal); F31.2 Bipolar disorder, current episode manic severe with psychotic features; F43.10 Post-traumatic stress disorder, unspecified; Z90.3 Acquired absence of stomach [part of]; Z68.42 Body mass index [BMI] 45.0-49.9, adult; Z98.890 Other specified postprocedural states | CPT/HCPCS: 99202; 99211 ==

== ENCOUNTER 2022-09-07 19:14 | Outpatient (REF) | payer OTHER, SELFPAY ==
[2022-09-09 10:13] LABS: H Pylori Breath Test Negative (Negative)
== END 2022-09-07 19:15 | disposition home or self-care (01) ==
LOC: HO.LNP 19:14
PROVIDERS: Visit Provider Physician Assistant
DX: E66.01 Morbid (severe) obesity due to excess calories (principal); F43.10 Post-traumatic stress disorder, unspecified; F31.2 Bipolar disorder, current episode manic severe with psychotic features; Z98.890 Other specified postprocedural states; Z90.3 Acquired absence of stomach [part of]
CPT/HCPCS: 83013

== ENCOUNTER 2022-09-23 13:07 | Outpatient (AMB) | payer OTHER, SELFPAY ==
--- NOTE | 2022-09-23 13:09 | MHC.AMNUTRGE ---
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 Hasn't started her plan yet. Started eating better however. has eggs in the morning. Switched from white bread to whole wheat bread. Has not started bars /shakes yet but is willing to. her mother is present for todays appt, who is also a post bariatric pt. Her mother is also following the plan yesterday had chicken, buttered broccoli and mashed potatoes and gravy. Pt and mother had a lot of questions today about typical pt regain, struggles and our program in general. [facility] online classes: pt reports she did not receive link Previous weight loss methods attempted s/p LSG At [facility] in 2015. Pre op weight was 300 lbs after she lost 50 ls preoperatively and lowest weight about 190 lbs. Pt then diagnosed with hypothyroidsim and started new psychiatric meds and gained 60 lbs back. She is interested in revision of previous LSG for continued weight. Her goal is to weigh about 140 lbs. . She reports first being concerned about her weight since 2014. She lives with her parents. She is unemployed presntly and takes care of her parents. Dietary counseling reduction Lifestyle Eating out 1-3 times/week Diagnosis Nutrition problem #1 overweight/obesity As related to (etiology) #1 excess energy intake and physical inactivity As evidenced by (sign/symptom) #1 high BMI Monitoring/Goals Nutrition problem monitoring total energy intake, level of knowledge/skill, total CHO intake and weight Outcome progress progressing Learning/Education Readiness to learn excellent Stages of change preparation Educational materials provided Yes Most Recent Diabetes Results: Cholesterol 127 mg/dL 10/24/21 HDL Cholesterol 46 mg/dL 10/24/21 Triglycerides 22 mg/dL 10/24/21 Creatinine 0.72 mg/dL (0.5-1.4) 01/07/22 Blood Urea Nitrogen 12 mg/dL (9-16) 01/07/22 Sodium 138 mmol/L (135-145) 12/31/21 Potassium 4.4 mmol/L (3.3-5.1) 12/31/21 Chloride 105 mmol/L (96-108) 12/31/21 Carbon Dioxide 24 mmol/L (22-29) 12/31/21 Calcium 8.8 mg/dL (8.4-10.2) 12/31/21 AST 9 U/L (5-31) 01/07/22 ALT < 6 U/L (0-31) 01/07/22 Total Protein 6.8 g/dL (6.5-8.0) 01/07/22 Albumin 4.0 g/dL (3.5-5.0) 01/07/22 [facility] Medical History (Updated 09/07/22 @ 14:15 by Carole Red PA-C) Bipolar 1 disorder Bipolar affective disorder, manic, severe, with psychotic behavior Post traumatic stress disorder (PTSD) Surgical History (Updated 09/07/22 @ 14:15 by Carole Red PA-C) History of sleeve gastrectomy Hx of hand surgery Hx of tonsillectomy Status post panniculectomy Family History Mother Glaucoma Diabetes mellitus Father Hypertension Diabetes mellitus Parkinson disease Sister Fibroids Social History Household Members: Family Household Members Other:: mother and father Housing: House Do you presently have visiting nurse or other home services: No Alcohol intake: never Patient Tobacco Use Status: Never used Tobacco e-Cigarette/Vaping Use: Never Used Second Hand Smoke Exposure: No service: No Sexual orientation: Don't Know Assessment & Plan Assessment & Plan (1) Morbid obesity: Code(s): E66.01 - Morbid (severe) obesity due to excess calories Patient Instructions: Congratulated patient the changes she has made so far- but explained avoiding all carbs in preparation for surgery. Explained how her plate should look. Encouraged she begin the plan with the shakes/bars today. also explained online classes, sent link and access information. will likely require repetition of nutrition plan. She will be seen again 10/21 2pm OV and reminded her of all upcoming appts. Coding Level of Care Code Nutr Indiv Intake (54453) Diagnoses Morbid obesity E66.01 Time Spent (min) 60
== END 2022-09-23 13:55 | disposition home or self-care (01) ==
PROVIDERS: Referring Provider Physician Assistant; Visit Provider Dietitian, Registered
DX: E66.01 Morbid (severe) obesity due to excess calories (principal)

== ENCOUNTER → 2022-09-23 13:07 | Outpatient (BNVA) | payer OTHER, SELFPAY | PROVIDERS: Referring Provider Physician Assistant; Visit Provider Dietitian, Registered | DX: E66.01 Morbid (severe) obesity due to excess calories (principal) | CPT/HCPCS: 97802 ==

== ENCOUNTER 2022-09-27 13:44 | Outpatient (REF) | payer OTHER, SELFPAY ==
--- NOTE | ~2022-09-27 | XR_ITS ---
EXAMINATION: XR CHEST CLINICAL INFORMATION: Morbid obesity due to excess calories COMPARISON: None available. TECHNIQUE: 2 views of the chest were obtained. FINDINGS: There is no gross pneumothorax. Low lung volumes. Mild asymmetric elevation of the left lung base. Heart size normal. No focal consolidation to suggest pneumonia. No pleural effusion. Degenerative changes in the thoracic spine. XR/XR chest 2V IMPRESSION: Low lung volumes. Mild asymmetric elevation of the left lung base.
--- NOTE | 2022-09-27 13:49 | ECG_ITS ---
Test Reason : E66.01 Blood Pressure : / mmHG Vent. Rate : 068 BPM Atrial Rate : 068 BPM P-R Int : 136 ms QRS Dur : 086 ms QT Int : 416 ms P-R-T Axes : 029 018 012 degrees QTc Int : 442 ms Normal sinus rhythm Nonspecific T wave abnormality Abnormal ECG When compared with ECG of 15-DEC-2021 17:13, No significant change was found Referred By: Carole Red Electronically Signed By:ROLF WRIGHT
[2022-09-27 14:10] LABS: Basophils Percent Auto 0.5 % (0-2); Eosinophils Absolute Auto 0.1 X10*3/uL (0.0-0.4); Eosinophils Percent Auto 1.3 % (0-4); Hematocrit 42.8 % (37.0-47.0); Hemoglobin 13.8 g/dl (12.0-16.0); Imm Gran Abs Auto 0.09 X10*3/uL (0.00-0.03); Imm Gran Pct Auto 1.2 % (0.0-0.4); Lymphocytes Absolute Auto 3.1 X10*3/uL (1.2-4.9); Lymphocytes Percent Auto 39.9 % (20-40); MANUAL DIFF FLAG SCAN; Mean Corpuscular HGB Conc 32.2 g/dl (31.0-35.0); Mean Corpuscular Hemoglobin 30.2 pg (27.0-33.0); Mean Corpuscular Volume 93.7 fL (80.0-98.0); Mean Platelet Volume 8.7 fL (9.4-12.3); Monocytes Absolute Auto 0.6 X10*3/uL (0.1-1.2); Monocytes Percent Auto 7.5 % (2-11); Neutrophils Absolute Auto 3.8 x10*3/uL (2.0-8.3); Neutrophils Percent Auto 49.6 % (45-73); Platelet Count 292 X10*3/uL (160-400); Red Blood Count 4.57 X10*6/uL (4.20-5.50); Red Cell Distribution Width 12.9 % (11.0-16.0); SCAN SMEAR FLAG 1; White Blood Count 7.6 X10*3/uL (4.8-10.8)
[2022-09-27 14:18] LABS: Estimated Average Glucose 100 mg/dL; Hemoglobin A1c % 5.1 % (<6.0)
[2022-09-27 14:27] LABS: SLIDE REVIEW VERIFIED
[2022-09-27 15:05] LABS: Alanine Aminotransferase 18 U/L (0-31); Alkaline Phosphatase 60 U/L (39-117); Anion Gap 12 (12-20); Aspartate Amino Transferase 16 U/L (5-31); Bilirubin Total 0.5 mg/dL (0.0-1.0); Blood Urea Nitrogen 8 mg/dL (9-16); C Reactive Protein 0.59 mg/dL (< or = 0.50); Calcium 9.2 mg/dL (8.4-10.2); Carbon Dioxide 26 mmol/L (22-29); Chloride 106 mmol/L (96-108); Cholesterol 216 mg/dL (<200); Estimated Glomerular Filt Rate > 60; Glucose Random 86 mg/dL (60-115); HDL Cholesterol 44 mg/dL (>40); Iron 115 mcg/dL (30-160); LDL Cholesterol Calculated 147 mg/dL (<100); Percent Iron Saturation 34 % (15-50); Potassium 4.2 mmol/L (3.3-5.1); Sodium 140 mmol/L (135-145); Total Iron Binding Capacity 335 mcg/dL (228-428); Total Protein 7.8 g/dL (6.5-8.0); Triglycerides 125 mg/dL (<150); Unsaturated Iron Binding 220 ug/dL
[2022-09-27 15:14] LABS: Ferritin 32 ng/mL (10-122); Insulin 15 uU/mL (2-29); TSH reflex Free T4 1.94 uIU/mL (0.32-4.0); Vitamin D 25-OH Total 26.2 ng/mL (>30)
[2022-09-27 15:23] LABS: Folate 9.9 ng/mL (> or = 4.0); Vitamin B12 > 2000 pg/mL (200-900)
[2022-09-29 10:48] LABS: Calcium (PTHI) 8.9 mg/dL (8.6-10.2); PTHI 63 pg/mL (16-77)
[2022-09-30 17:33] LABS: Zinc 76 mcg/dL (60-130)
[2022-10-01 15:02] LABS: Vitamin A 49 mcg/dL (38-98)
[2022-10-03 11:52] LABS: Vitamin B1 8 nmol/L (8-30)
== END 2022-09-27 13:45 | disposition home or self-care (01) ==
LOC: HO.LAB 13:44
PROVIDERS: PCP Internal Medicine; Visit Provider Physician Assistant
DX: E66.01 Morbid (severe) obesity due to excess calories (principal); Z90.3 Acquired absence of stomach [part of]
CPT/HCPCS: 36415; 71046; 80053; 80061; 82306; 82607; 82728; 82746; 83036; 83525; 83540; 83970; 84425; 84443; 84590; 84630; 85025; 86140; 93005

== ENCOUNTER 2022-09-30 11:30 | Outpatient (AMB) | payer OTHER, SELFPAY ==
--- NOTE | 2022-09-30 10:27 | MHC.OFFVISWM ---
Intake VS Expanded 09/30/22 11:39 Height 5 ft 3 in Weight 257 lb 6.4 oz BMI 45.6 BP 114/73 Blood Pressure Location Lt brachial Blood Pressure Position Sitting Pulse 77 Pulse Source Pulse Oximeter Temp 97.9 F Temperature Source Tympanic Pulse Oximetry 98 Oxygen Delivery Method Room Air Body Fat 124.4 Body Fat Percentage 48.3 Free Fat Mass 133.0 Muscle Mass 126.3 Visceral Mass 14.0 Water Mass 95.4 BMR 1,912 Intake Visit Reasons: (OV) F/U SWL Allergies cat dander Allergy (Mild, Verified 09/07/22 14:03) Sneezing house dust Allergy (Mild, Verified 09/07/22 14:03) Sneezing house dust mite Allergy (Mild, Verified 09/07/22 14:03) Sneezing Medication List - Last Reconciled 09/30/22 by Carole Red PA-C divalproex ER 1,500 mg (3 x 500 mg) PO BEDTIME 30 days divalproex ER 250 mg PO BEDTIME 30 days levothyroxine 50 mcg PO DAILY lithium carbonate ER 900 mg (2 x 450 mg) PO BEDTIME 30 days melatonin 10 mg PO BEDTIME PRN 30 days olanzapine 10 mg PO BEDTIME 30 days phentermine 37.5 mg PO DAILY [Visiting Nurse Daily Visiting Nurse] HPI HPI Comments History of Present Illness Details [facility] follow up for revision of previous LSG. 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 She was on vacation until Sep 18.She has bought shakes and bars and plans to start today. Exercise plan: [facility] gym - 2 d/week. Treadmill - 15 minutes, speed 1 - 6, speed ? - 150- 200 calories. Bike x 15 minutes - ?. Pre op work up completed as follows: SW[facility] classes - appts - 10/[address] appts - follow up on 10/21 H pylori - negative Labs - done, high cholesterol, low Vit D CXR - normal ECG - Normal sinus rhythm Nonspecific T wave abnormality Abnormal ECG When compared with ECG of 15-DEC-2021 17:13, No significant change was found ULS and UGI - 10/18 [facility] Medical History (Updated 09/30/22 @ 11:54 by Carole Red PA-C) Bipolar 1 disorder Bipolar affective disorder, manic, severe, with psychotic behavior Post traumatic stress disorder (PTSD) Surgical History (Updated 09/07/22 @ 14:15 by Carole Red PA-C) History of sleeve gastrectomy Hx of hand surgery Hx of tonsillectomy Status post panniculectomy Family History Mother Glaucoma Diabetes mellitus Father Hypertension Diabetes mellitus Parkinson disease Sister Fibroids Social History Household Members: Family Household Members Other:: mother and father Housing: House Do you presently have visiting nurse or other home services: No Alcohol intake: never Patient Tobacco Use Status: Never used Tobacco e-Cigarette/Vaping Use: Never Used Second Hand Smoke Exposure: No service: No Sexual orientation: Don't Know Assessment & Plan Assessment & Plan (1) Morbid obesity: Code(s): E66.01 - Morbid (severe) obesity due to excess calories Plan: Pt has not started meal or exercise plans yet. She has gaiend 4 lbs since EAR MACHINE OPERATOR appt. She will need alot of extra support and help with compliance for revision LSG surgery is she is a candidate. Patient comes to all appointments with her mother Rosalba. I reviewed all upcoming appts, next appt with me in 3 weeks. Cardiac testing for abnormal ECG ordered. Patient is still morbidly obese and is not considered stable at this time. I spent 30 minutes in total speaking with the patient via video conference counseling , reviewing records and charting in patients chart. . (2) History of sleeve gastrectomy: Comment: 06/03/2015- [facility] Code(s): Z90.3 - Acquired absence of stomach [part of] (3) Bipolar affective disorder, manic, severe, with psychotic behavior: Comment: r/o schizoaffective Code(s): F31.2 - Bipolar disorder, current episode manic severe with psychotic features Orders: Orders CA lexiscan stress w alicia Today E66.01 - Morbid (severe) obesity due to excess calories, F31.2 - Bipolar disorder, current episode manic severe with psychotic features, R94.31 - Abnormal electrocardiogram [ECG] [EKG] CA echo transthorac w con Today E66.01 - Morbid (severe) obesity due to excess calories, F31.2 - Bipolar disorder, current episode manic severe with psychotic features, R94.31 - Abnormal electrocardiogram [ECG] [EKG] NM cardiolite stress test Today E66.01 - Morbid (severe) obesity due to excess calories, F31.2 - Bipolar disorder, current episode manic severe with psychotic features, R94.31 - Abnormal electrocardiogram [ECG] [EKG] Medications: New cholecalciferol (vitamin D3) 25 mcg PO DAILY 30 caps 4RF cholecalciferol (vitamin D3) 25 mcg PO DAILY 30 caps 4RF Coding Level of Care Code Est Pt Level 4 (77398) Diagnoses Morbid obesity E66.01 History of sleeve gastrectomy Z90.3 Bipolar affective disorder, manic, severe, with psychotic behavior F31.2
[2022-09-30 11:39] VITALS: BP 114/73; PULSE 77; TEMP 36.6; O2SAT 98; BMI 45.6
== END 2022-09-30 12:00 | disposition home or self-care (01) ==
PROVIDERS: Visit Provider Physician Assistant
DX: E66.01 Morbid (severe) obesity due to excess calories (principal); Z68.42 Body mass index [BMI] 45.0-49.9, adult; Z90.3 Acquired absence of stomach [part of]; Z98.84 Bariatric surgery status; F31.2 Bipolar disorder, current episode manic severe with psychotic features
CPT/HCPCS: 99214

== ENCOUNTER → 2022-09-30 11:30 | Outpatient (BNVA) | payer OTHER, SELFPAY | PROVIDERS: Visit Provider Physician Assistant | DX: E66.01 Morbid (severe) obesity due to excess calories (principal); Z68.42 Body mass index [BMI] 45.0-49.9, adult; F31.2 Bipolar disorder, current episode manic severe with psychotic features; Z98.84 Bariatric surgery status | CPT/HCPCS: 99212 ==

== ENCOUNTER 2022-10-18 08:33 | Outpatient (REF) | payer OTHER, SELFPAY ==
--- NOTE | ~2022-10-18 | US_ITS ---
EXAMINATION: US COMPLETE ABDOMEN WITH LIVER ELASTOGRAPHY CLINICAL INFORMATION: Morbid obesity. COMPARISON: None available. TECHNIQUE: Real-time imaging of the abdominal viscera. Noninvasive ultrasound liver fibrosis assessment is performed using Carolee ElastPQ point quantification shear wave elastography (2D-SWE) with a C5-2 MHz transducer. Multiple elastography samples are obtained. FINDINGS: PANCREAS: Head and body appear unremarkable. Tail not visualized. ABDOMINAL AORTA: Visualized portions appear unremarkable. INFERIOR VENA CAVA: Visualized portions appear unremarkable. LIVER: There is unremarkable in contour and echogenicity. No focal lesion or intrahepatic biliary duct dilatation identified. The right lobe measures 20.4 cm in length. The left lobe measures 16.7 cm in length. Portal flow is towards the liver (hepatopetal). Shear wave liver elastography median stiffness is 1.66 m/s (reference: normal median stiffness is 1.3 m/s or less). GALLBLADDER: The gallbladder is physiologically distended without evidence of stones, sludge, polyps, wall thickening or pericholecystic fluid. Technologist reports negative sonographic Morrell's sign. COMMON BILE DUCT: Normal in caliber measuring 0.4 cm in diameter. RIGHT KIDNEY: No hydronephrosis. No renal calculi or focal parenchymal lesion identified. The kidney measures 11.0 cm in maximum dimension. LEFT KIDNEY: No hydronephrosis. No renal calculi or focal parenchymal lesion identified. The kidney measures 13.4 cm in maximum dimension. SPLEEN: The spleen measures 9.4 cm in maximum dimension. FREE FLUID: None. US/US abdomen comp w elastography IMPRESSION: Minimal risk of clinically significant fibrosis. Mild hepatomegaly. Technologist measures left kidney is significantly larger than right. Differential diagnosis includes, but is not limited to, technologist measurement error, right renal artery stenosis, etc. Recommend clinical correlation. REFERENCE: Society of Radiologists in Ultrasound Liver Stiffness Thresholds (2020): LIVER STIFFNESS THRESHOLDS: *Liver Stiffness equal or less than 1.3 m/s: High probability of being normal. *Liver Stiffness less than 1.7 m/s: In the absence of other known clinical signs, rules out compensated advanced chronic liver disease. *Liver Stiffness 1.7-2.1 m/s: Suggestive of compensated advanced chronic liver disease but need further test for confirmation. *Liver Stiffness over 2.1 m/s: Rules in compensated advanced chronic liver disease. *Liver Stiffness over 2.4 m/s: Suggestive of clinically significant portal hypertension. QUALITY OF DATA SET: *IQR/Median value equal or less than 0.15 implies a quality data set. *IQR/Median value over 0.15 implies a poor quality data set. SIGNIFICANT CHANGE FROM PRIOR EXAM: Significant change if liver stiffness measurement is 10% or greater from prior exam. OTHER CONSIDERATIONS: The stage of liver fibrosis may be overestimated in the setting of acute hepatitis, liver inflammation, elevated liver function tests, hepatic vascular congestion, obstructive cholestasis, non-fasting state, and infiltrative diseases such as amyloidosis and lymphoma. In some patients with NAFLD, the liver stiffness thresholds for compensated advanced chronic liver disease may be lower. In causes other than viral hepatitis and NAFLD, liver stiffness thresholds are not well established.
--- NOTE | ~2022-10-18 | FL_ITS ---
EXAMINATION: XR FLUOROSCOPY UPPER GI WITH AIR CLINICAL INFORMATION: 37-year-old female, history of gastric sleeve procedure 2016, now gaining weight once again. Evaluate anatomy. COMPARISON: None available. TECHNIQUE: Fluoroscopic air contrast upper GI examination was performed utilizing standard techniques with thin and thick barium and effervescent granules. Numerous spot images were obtained. FINDINGS: Dual and single contrast images of the esophagus demonstrate the esophagus is mildly patulous. It is otherwise normal in contour, and demonstrates normal mucosal pattern. No evidence of stricture, mass, or ulcerations identified. Esophageal peristalsis was essentially normal. A small type I hiatus hernia was identified. Mild episodic gastroesophageal reflux was seen during the course of the examination. Dual contrast and single contrast images of the stomach demonstrate contour expected after gastric sleeve procedure. Of note, the stomach appears slightly more patulous than would be expected after this procedure and mild dilatation is not excluded. No evidence of mass, ulceration, or other abnormality. Normal fold pattern. Contrast freely passed into the gastric antrum and duodenal bulb without delay. Single and air-contrast images of the duodenal bulb demonstrate no abnormality. The duodenal sweep has a normal appearance, course, and mucosal fold appearance. The patient demonstrated somewhat rapid transit of contrast into the mid and distal small bowel. No obvious etiology identified for this. The imaged jejunum and ileum have a normal fold pattern and caliber. FLUOROSCOPY TIME: 4.9 minutes Number of Spot Images: 32 DOSE AREA PRODUCT: 77.012 uGy-m2 (microgray-meter squared) FL/FL upper GI w air IMPRESSION: 1. Mildly patulous esophagus, which is otherwise normal in appearance. 2. Small type I hiatus hernia identified. 3. Mild episodic GE reflux identified. 4. Stomach has a contour consistent with prior gastric sleeve procedure, although appears slightly more patulous than would be expected. Mild dilatation of the stomach is a possibility. Stomach is otherwise normal. 5. Normal duodenal bulb, sweep, proximal jejunum and imaged ileum. The patient did have a somewhat rapid transit of contrast into the more distal small bowel, etiology uncertain.
== END 2022-10-18 08:34 | disposition home or self-care (01) ==
LOC: HO.US 08:33
PROVIDERS: Visit Provider Physician Assistant
DX: E66.01 Morbid (severe) obesity due to excess calories (principal); Z90.3 Acquired absence of stomach [part of]
CPT/HCPCS: 74246; 76705; 76981

== ENCOUNTER → 2022-10-18 08:34 | Outpatient (BNV) | payer OTHER, SELFPAY | PROVIDERS: Visit Provider Radiology Diagnostic Radiology | DX: Z01.818 Encounter for other preprocedural examination (principal) | CPT/HCPCS: 74246 ==

== ENCOUNTER → 2022-10-21 14:08 | Outpatient (BNVA) | payer OTHER, SELFPAY | PROVIDERS: Visit Provider Dietitian, Registered | DX: E66.9 Obesity, unspecified (principal); Z68.41 Body mass index [BMI] 40.0-44.9, adult; Z71.3 Dietary counseling and surveillance | CPT/HCPCS: 97803 ==

== ENCOUNTER 2022-10-28 10:30 | Outpatient (AMB) | payer OTHER, SELFPAY ==
--- NOTE | 2022-10-28 10:32 | MHC.OFFVISWM ---
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 Will buy electronic scale now and will send me her weight. Meal plan - 2pm - protien shake 5pm- 4 oz protein and veg 8pm - Atkins bar 10pm - shake Exercise - 6pm gym 4d/ week - 30 minutes on treadmill, speed 2.8, incline 2-7 300 calories, then stair master 100 calories. Then Tatiana class for 30 minutes 4d/ week. Pre op work up completed as follows: SWL classes - 09/13 appts - 10/12, follow up 11/09 RD appts - follow up on 10/21, follow up 12/09 H pylori - negative Labs - done, high cholesterol, low Vit D CXR - normal ECG - Normal sinus rhythm Nonspecific T wave abnormality Abnormal ECG When compared with ECG of 15-DEC-2021 17:13, No significant change was found ECHO/stress test - 10/31 and 11/04 ULS - mild hepatomegaly, L 20.4 and R 16.7 UGI - . Mildly patulous esophagus, which is otherwise normal in appearance. 2. Small type I hiatus hernia identified. 3. Mild episodic GE reflux identified. 4. Stomach has a contour consistent with prior gastric sleeve procedure, although appears slightly more patulous than would be expected. Mild dilatation of the stomach is a possibility. Stomach is otherwise normal. 5. Normal duodenal bulb, sweep, proximal jejunum and imaged ileum. The patient did have a somewhat rapid transit of contrast into the more distal small bowel, etiology uncertain. [facility] Medical History (Updated 09/30/22 @ 11:54 by Carole Red PA-C) Post traumatic stress disorder (PTSD) Bipolar affective disorder, manic, severe, with psychotic behavior Bipolar 1 disorder Surgical History (Updated 09/07/22 @ 14:15 by Carole Red PA-C) Hx of tonsillectomy Hx of hand surgery History of sleeve gastrectomy Status post panniculectomy Family History Mother Glaucoma Diabetes mellitus Father Hypertension Diabetes mellitus Parkinson disease Sister Fibroids Social History Household Members: Family Household Members Other:: mother and father Housing: House Do you presently have visiting nurse or other home services: No Alcohol intake: never Patient Tobacco Use Status: Never used Tobacco e-Cigarette/Vaping Use: Never Used Second Hand Smoke Exposure: No service: No Sexual orientation: Don't Know Assessment & Plan Assessment & Plan (1) Morbid obesity: Code(s): E66.01 - Morbid (severe) obesity due to excess calories Plan: Pt has not bought a scale yet and I do n ot have a current weight for her - she will purchase a scale now and send me her weight electronically. Once I receive it I will ask Dr Mojica to review her UGI and OR report. Meal and exercise plans no changes today- may need to modify once I know her weight. All upcoming appts reviewed with patient - in the midst of completing pre op work up including cardiac testing. I reviewed all abnormal testing with patient - and then she asked me if anything was abnormal in her testing. Next appt with me in 3 weeks. Patient is still morbidly obese and is not considered stable at this time. I spent 30 minutes in total speaking with the patient via video conference counseling , reviewing records and charting in patients chart. . (2) History of sleeve gastrectomy: Comment: 06/03/2015- [facility] Code(s): Z90.3 - Acquired absence of stomach [part of] (3) Abnormal ECG: Code(s): R94.31 - Abnormal electrocardiogram [ECG] [EKG] (4) Bipolar 1 disorder: Code(s): F31.9 - Bipolar disorder, unspecified Telehealth Telehealth Location of provider rendering services: practice address Location of patient: address on file Patient Identification confirmed using: Name, : Yes Telehealth method: voice only Patient verbally consented to treatment: Yes Patient verbally consented to billing insurance company: Yes Patient informed of any privacy concerns related to visit: Yes Coding Level of Care Code Tele Est Pt Level 4 (35684) Diagnoses Morbid obesity E66.01 History of sleeve gastrectomy Z90.3 Abnormal ECG R94.31 Bipolar 1 disorder F31.9
== END 2022-10-28 12:13 | disposition home or self-care (01) ==
LOC: HO.HBS 10:58
PROVIDERS: Visit Provider Physician Assistant
DX: E66.01 Morbid (severe) obesity due to excess calories (principal); Z68.41 Body mass index [BMI] 40.0-44.9, adult; Z90.3 Acquired absence of stomach [part of]; Z98.84 Bariatric surgery status
CPT/HCPCS: 99214

== ENCOUNTER → 2022-10-28 10:30 | Outpatient (BNVA) | payer OTHER, SELFPAY | PROVIDERS: Visit Provider Physician Assistant | DX: E66.01 Morbid (severe) obesity due to excess calories (principal); Z90.3 Acquired absence of stomach [part of]; R94.31 Abnormal electrocardiogram [ECG] [EKG]; F31.9 Bipolar disorder, unspecified ==

== ENCOUNTER → 2022-10-31 11:07 | Outpatient (REF) | payer OTHER, SELFPAY ==
--- NOTE | 2022-10-31 11:10 | CA_ITS ---
Transthoracic Echocardiogram Patient (Last, First, Middle): May Casas, Gender: Female Date of : 1985 Age: 37 Procedure Date: 10/31/2022 Procedure Type: Transthoracic Echocardiogram Location: OP Height: 160.02 cm Weight: 113.4 kg BSA: 2.13 m2 Heart Rate: bpm BP: 115 / 60 mmHg Cellar Packer: HERON Referring MD: Carole Red PA-C [employer] Mounter: Ricki Copeland MD Symptoms: R94.31 - Abnormal electrocardiogram [ECG] [EKG] Study Quality: Fair, adequate with Definity ECG Rhythm: Sinus Conclusions: - Essentially normal study Findings Procedure Information Contrast agent, definity, is being given per protocol without apparent complications. Left Ventricle Normal left ventricular size, thickness, and systolic function. The visually estimated ejection fraction is between 60-65%. Diastolic function is normal for age. Right Ventricle Normal right ventricular cavity size and systolic function. Atria Both atria are normal in size. There is lipomatous hypertrophy of the interatrial septum. Interatrial shunt cannot be excluded. Aortic Valve The aortic valve structure and function is likely normal. There is no aortic valve stenosis. There is no aortic valve regurgitation. Mitral Valve Normal mitral valve structure and function. There is trace mitral valve regurgitation. There is no mitral valve stenosis. Pulmonic Valve The pulmonic valve is likely normal. Tricuspid Valve Normal tricuspid valve structure. There is trace tricuspid valve regurgitation. The right ventricular systolic pressure is normal. The right ventricular systolic pressure is 16 mmHg. Normal right atrial pressure. There is no evidence of pulmonary hypertension. Great Vessels All visible segments of the aorta are normal in size. The pulmonary artery was not well visualized. Venous The inferior vena cava is normal in size and collapses greater than 50% with inspiration. Pericardium/Pleural There is no evidence of pericardial effusion. Prior Study Comparison No prior study available for comparison. Measurements 2D Linear Measurements IVSd: 1.07 0.6-0.9/0.6-1.0 cm LVIDd: 4.44 3.9-5.3/4.2-5.9 cm LVIDd Index: 2.08 2.4-3.2/2.2-3.1 cm/m2 LVIDs: 2.55 2.0-3.6 cm LVPWd: 0.93 0.7-1.1 cm Ao Root: 2.80 2.1-3.5 cm LA Diam: 3.70 2.7-3.8/3.0-4.0 cm LAIDs Index: 1.74 1.5-2.3 cm/m2 LV Mass: 186.49 67-162/88-224 g LV Mass Index: 87.55 43-95/49-115 g/m2 LVOT Diam: 2.20 3.0+(-)1.3 cm 2D Systolic Function EF 4C: 65.10 >55% EF 2C: 59.10 >55% EF BiP: 62.20 >55% Mitral Valve MV Pk E: 0.78 MV PK A: 0.61 MV Decel Time: 253.00 E/A: 1.30 E'Medial: 11.10 E/E' Med: 7.00 PHT: 74.00 MVA PHT: 2.97 Decel Winkler: 3.07 Aortic Valve AoV Pk Braden: 1.64 AoV Mn Braden: 1.18 AoV VTI: 0.34 AoV Pk Grad: 11.00 Aov Mn Grad: 6.00 RICHARD Cont.VTI: 2.75 LVOT LVOT Pk Braden: 1.17 LVOT Mn Braden: 0.81 LVOT VTI: 0.24 LVOT Pk Grad: 5.00 LVOT Mn Grad: 3.00 LVOT Diam: 2.20 LVOT Area: 3.80 Diastolic Function MV Pk E: 0.78 MV Pk A: 0.61 E/A: 1.30 E'Medial: 11.10 E/E' Med: 7.00 Right Ventricle TAPSE (mm): 27.00 Tricuspid Valve TR Pk Braden: 1.83 TR Pk Grad: 13.00 RA Press: 3.00 RVSP: 16.00 Great Vessels Aorta Ao Root-2D: 2.80 2.0-3.7 cm Ao Asc: 3.10 2.1-3.4 cm Pulmonary Valve PV Pk Braden: 1.23 Peak PV Grad: 6.00 Updated in Other Vendor System with Status of Final Ricki Copeland MD electronically signed on 10/31/2022 2:09:24 PM with status of Final
== END ==
LOC: HO.CARD 11:07
PROVIDERS: Visit Provider Physician Assistant
DX: R94.31 Abnormal electrocardiogram [ECG] [EKG] (principal); E66.01 Morbid (severe) obesity due to excess calories; F31.2 Bipolar disorder, current episode manic severe with psychotic features
CPT/HCPCS: 93306; Q9957

== ENCOUNTER → 2022-10-31 11:10 | Outpatient (BNV) | payer OTHER, SELFPAY | PROVIDERS: Visit Provider Internal Medicine Cardiovascular Disease | DX: R94.31 Abnormal electrocardiogram [ECG] [EKG] (principal) | CPT/HCPCS: 93306 ==

== ENCOUNTER → 2022-11-04 10:15 | Outpatient (REF) | payer OTHER, SELFPAY ==
--- NOTE | ~2022-11-04 | NM_ITS ---
Myocardial perfusion study Indication: Abnormal EKG to evaluate for myocardial ischemia Technique: The patient was brought in for a Lexiscan perfusion study on 11/04/2022. Patient performed low-level exercise and was injected 0.4 mg of Lexiscan intravenously. Within a minute of injection, 40 mCi of sestamibi was given intravenously. Images were obtained using the SPECT gamma camera interlaced with the gating device. Images were obtained in supine position. Resting perfusion study was performed on 11/08/2022. Patient was administered 40 mCi of sestamibi intravenously at rest. Images were then obtained in supine position. Obtained with and without CT attenuation. Total DLP 172 mGy-cm. Images were processed with the software and compared side to side in short axis, horizontal long axis and vertical long axis views. Findings: The stress perfusion study showed non attenuated images show very focal small area of moderately reduced uptake in the basal inferior wall of the LV myocardium. Remainder of the LV myocardium is normally perfused. Attenuation corrected images show mildly reduced uptake in the distal septum and the apex of the LV myocardium. The gated study shows normal LV systolic function with calculated LVEF of 70%. LV cavity is normal size. The gated study shows normal systolic wall thickening and contraction of segments. Resting study shows normal significant change in perfusion compared to stress perfusion study. Gating at rest reveals normal systolic wall motion with ejection fraction at 60%. The findings are consistent with no clear reversible defect suggestive of ischemia. Likely normal myocardial perfusion . NM/NM cardiolite stress test Impression: 1. Myocardial perfusion imaging study shows likely normal myocardial perfusion 2. Gated LVEF is 70% 3. Transient ischemic dilatation not present EKG is nondiagnostic for ischemia
--- NOTE | 2022-11-04 10:18 | CA_ITS ---
Acquisition Time: 2022-11-04 10:37:01 Total Exercise Time: 00:05:59 Test Indications: R94.31 - Abnormal electrocardio Medications: Protocol: JETHRO Max HR: 164 BPM 88% of Pred: 185 BPM Max BP: 150/072 mmHG Max Work Load: 7.0 METS Exercise stres test exercise 5 min 59 sec of Jethro protocol achieving 86% MPHR, without anginal symptoms, without arrhythmias, with normotensive response to exercise, without EKG changes. Nuclear images pending. Test reviewed with Dr. Copeland Referred By: Carole Red Overread By: Telma Camilo
== END ==
LOC: HO.CARD 10:15
PROVIDERS: Visit Provider Physician Assistant
DX: R94.31 Abnormal electrocardiogram [ECG] [EKG] (principal); E66.01 Morbid (severe) obesity due to excess calories; F31.2 Bipolar disorder, current episode manic severe with psychotic features
CPT/HCPCS: 78452; 93017; A9500

== ENCOUNTER → 2022-11-04 10:18 | Outpatient (BNV) | payer OTHER, SELFPAY | PROVIDERS: Visit Provider Nurse Practitioner | DX: R94.31 Abnormal electrocardiogram [ECG] [EKG] (principal) | CPT/HCPCS: 78452; 93016; 93018 ==

== ENCOUNTER 2022-11-09 12:30 | Outpatient (AMB) | payer OTHER, SELFPAY ==
--- NOTE | 2022-11-09 12:36 | MHC.WMTHER ---
Intake Intake Visit Reasons: (OV) BH Intake Allergies cat dander Allergy (Mild, Verified 09/07/22 14:03) Sneezing house dust Allergy (Mild, Verified 09/07/22 14:03) Sneezing house dust mite Allergy (Mild, Verified 09/07/22 14:03) [facility]zing [facility] Medical History (Updated 11/09/22 @ 13:28 by Meri Palm) Post traumatic stress disorder (PTSD) Bipolar affective disorder, manic, severe, with psychotic behavior Bipolar 1 disorder Surgical History (Updated 09/07/22 @ 14:15 by Carole Red PA-C) Hx of tonsillectomy Hx of hand surgery History of sleeve gastrectomy Status post panniculectomy Family History Mother Glaucoma Diabetes mellitus Father Hypertension Diabetes mellitus Parkinson disease Sister Fibroids Social History Household Members: Family Household Members Other:: mother and father Housing: House Do you presently have visiting nurse or other home services: No Alcohol intake: never Patient Tobacco Use Status: Never used Tobacco e-Cigarette/Vaping Use: Never Used Second Hand Smoke Exposure: No service: No Sexual orientation: Don't Know Behavioral Health Assessment Weight Management Therapy Therapy Notes Details Pt is looking to have weight loss surgery revision to help improve her health and quality of life. Pt sees a therapist at [facility] as well as a psychiatrist there. She was psychiatrically admitted to [place] [id number] last November until January 2022 due to manic, paranoid delusional episodes for the first time. Pt reported has a visiting nurse coming to her house to administer her medications. Pt denied a history of problems with drugs or alcohol and denied a history of trying to hurt herself. Patient's mother was present during this evaluation, She further described events that happended as, patient started experiencing sig. stress at work (had gastric sleeve one year into working that job). She then quit that job in 2020 due to bullying and harassment. Pt mom then reported that patient started dancing in the house for several hours a day, not eating very much and not sleeping, she then lost sig weight and was about 130lbs. These manic symptoms and reported allegation of conspiracy against her by the police continues until she was admitted psychiatrically November of 2021 for 3 months. This is the only admission and no prior psychiatric history or symptoms prior to all of this. (per inpatient psych note) Patient is an accomplished, intelligent, resilient 35-year-old female with a master's degree in social work, with apparently a limited psychiatric history who presents with paranoid delusions and manic behaviors. Patient is currently manic but polite, friendly and willing and able to listen to marketing copywriter and even entertain alternative perspective. 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 this upsetting experience caused patient to feel depression and become suicidal a few months ago, however by this admission all depression and SI had resolved for over a month and she was in a good mood, without any SI or HI and determined to bring this conspiracy to light through civil lawsuits. Despite Her fixed belief she was willing to briefly stay on the unit at writers request and contemplate marketing copywriter's proposal that her mind may be misinterpreting events. Pt however remained adamant that her interpretation of events is correct, that she is the victim of a conspiracy. Patient felt stable and placed a 3 day notice and requested discharge. throughout the admission, she remained in a good mood, with an effervescent affect and was appropriate with both staff and peers. though exuberant, she was in overall good behavioral and impulse control. she reported sleeping well in a community and in fact slept well through the night. Patient Continued to deny any SI or HI at all or any AVH; social work received information from her parents who reported no concern for any SI or HI; patient has no history of self-harm and does not use drugs or alcohol and marketing copywriter and SW could find no evidence the patient is unsafe for unable to take care for self in the community. Although patient has paranoid and had delusional thinking, she was not in imminent risk for harm to herself or anyone else; she lives with her supportive parents in a stable environment and even agreed to see an outpatient prescriber in order to continue discussing these current events and continue to consider marketing copywriter's assertion that her mind is playing tricks on her and that she is misinterpreting events. Patient does not rise to the level of involuntary commitment and her request for discharge honored Presenting Concerns Referral Source provider Reason for referral weight loss surgery evaluation Precipitating Event obesity Living Situation Current Living Situation Relative's/Guardian's [place] At risk of losing current housing? No Satisfied with current living situation? Yes Comments Pt lives with her mother and father who she reports are very supportive. Food/Weight/Diet Expectations of change weight loss and maintenance History/Relationship with food Pt stated that she often emotional eats. History/Relationship with weight Pt stated that she has been overweight all of her life since childhood. When patient was admitted psychiatrically she weighed 130lbs and very quickly started to gain weight. History/Relationship with dieting 2016-gastric sleeve done at [facility]. She lost 110lbs and has gained most of it back. Social History Family history and relationship Pt stated that she was born and raised by her mother and father as well as her sister. She reported that she comes from a big family. Parental/Familial financial foundations representative obligations none Developmental history and status no issues Social support parents, sister, aunt who is always there for her. Cultural/Ethnic information [place], Monegasque Legal Involvement and History Current or historical involvement with the legal system? none Education Highest grade completed master's in social work. Preferred learning style Auditory, Verbal, Written, Learn by doing and Visual Currently enrolled in educational program? No Interested in further educational program? 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 ) Wants help to find employment? No Meaningful activities music, working out, watching murder mysteries, traveling, shopping Financial Situation Describe current financial situation Occasional struggle Financial assistance? None Service Service? No Mental Health and Addiction Treatment Current/Past substance abuse? No Medical and Physical Health Summary Physical exam in the last year? Yes Pain Screening Current pain? No Pain in the last few months? No Medications Is the patient compliant with medications? Yes Does the patient have [place] Guardian in place? Not applicable Does the patient use complimentary health approaches? Yes Trauma/Abuse History History of trauma? Yes Assessment & Plan Assessment & Plan (1) Bipolar affective disorder, manic, severe, with psychotic behavior: Comment: r/o schizoaffective Code(s): F31.2 - Bipolar disorder, current episode manic severe with psychotic features (2) Morbid obesity: Code(s): E66.01 - Morbid (severe) obesity due to excess calories Plan Patient will be seen again for further evaluation, assessment, and support. Coding Level of Care Code Marsha Nielson ([id number]) Diagnoses Bipolar affective disorder, manic, severe, with psychotic behavior F31.2 Morbid obesity E66.01 Time Spent (min) 50
== END 2022-11-09 13:29 | disposition home or self-care (01) ==
PROVIDERS: Visit Provider Counselor Mental Health
DX: F31.2 Bipolar disorder, current episode manic severe with psychotic features (principal); E66.01 Morbid (severe) obesity due to excess calories
CPT/HCPCS: 90791

== ENCOUNTER → 2022-11-09 12:30 | Outpatient (BNVA) | payer OTHER, SELFPAY | PROVIDERS: Visit Provider Counselor Mental Health ==

== ENCOUNTER → 2022-12-09 14:43 | Outpatient (BNVA) | payer OTHER, SELFPAY | PROVIDERS: Visit Provider Dietitian, Registered | DX: E66.9 Obesity, unspecified (principal) | CPT/HCPCS: 97803 ==

== ENCOUNTER → 2022-12-14 15:16 | Outpatient (BNVA) | payer OTHER, SELFPAY | PROVIDERS: Visit Provider Counselor Mental Health ==

== ENCOUNTER 2022-12-26 14:11 | Outpatient (AMB) | payer OTHER, SELFPAY ==
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
== END 2023-01-26 14:25 | disposition home or self-care (01) ==
PROVIDERS: Visit Provider Counselor Mental Health
DX: F31.2 Bipolar disorder, current episode manic severe with psychotic features (principal); E66.01 Morbid (severe) obesity due to excess calories
CPT/HCPCS: 90834

== ENCOUNTER → 2022-12-26 14:11 | Outpatient (BNVA) | payer OTHER, SELFPAY | PROVIDERS: Visit Provider Counselor Mental Health ==

== ENCOUNTER 2023-01-20 11:32 | Outpatient (AMB) | payer OTHER, SELFPAY ==
--- NOTE | 2023-01-20 11:34 | A.OFFVIS_ITS ---
Intake VS Expanded 01/20/23 11:45 BP 127/73 Blood Pressure Location Rt brachial Blood Pressure Position Sitting Pulse 97 Pulse Source Pulse Oximeter Temp 97.9 F Temperature Source Tympanic Pulse Oximetry 97 Oxygen Delivery Method Room Air Height 5 ft 3 in Weight 270 lb BMI 47.8 Body Fat % 50.3 Body Fat Mass 135.8 Fat Free Mass 134.0 Visceral Fat Rating 16.0 Body Water % 35.6 Body Water Mass 96.2 Muscle Mass/Score 127.2 Basal Metabolic Rate/Score 1,946 Intake Visit Reasons: (OV) F/U SWL Allergies cat dander Allergy (Mild, Verified 01/20/23 11:40) Sneezing house dust Allergy (Mild, Verified 01/20/23 11:40) Sneezing house dust mite Allergy (Mild, Verified 01/20/23 11:40) Sneezing HPI HPI Comments History of Present Illness Details SWL follow up for revision of previous LSG. Last seen by me in October. 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 GAined 17 lbs. 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 Feels much better now. Had been very depressed and not following meal and exercise. Has membership at . Pre op work up completed as follows: SWL classes - 09/13 appts - 10/12, last seen Carl - will discuss with Meri, next appt on 01/25. RD appts - follow up on 10/21, follow up 12/09 cleared H pylori - negative Labs - done, high cholesterol, low Vit D CXR - normal ECG - Normal sinus rhythm Nonspecific T wave abnormality Abnormal ECG When compared with ECG of 15-DEC-2021 17:13, No significant change was found ECHO/stress test - 10/31 and 11/04 - both studies normal ULS - mild hepatomegaly, L 20.4 and R 16.7 UGI - IMPRESSION: 1. Mildly patulous esophagus, which is o therwise normal in appearance. 2. Small type I hiatus hernia identified . 3. Mild episodic GE reflux identified. 4. Stomach has a contour consistent with prior gastric sleeve procedure, although appears slightly more patulous than would be expected. Mild dilatation of the stomach is a possibility. Stomach is otherwise normal. 5. Normal duodenal bulb, sweep, proximal jejunum and imaged ileum. The patient did have a somewhat rapid transit of contrast into the more distal small bowel, etiology uncertain. COUNT INCLUDES THE [facility] Medical History (Updated 11/09/22 @ 13:28 by Meri Palm) Post traumatic stress disorder (PTSD) Bipolar affective disorder, manic, severe, with psychotic behavior Bipolar 1 disorder Surgical History Hx of tonsillectomy Hx of hand surgery History of sleeve gastrectomy Status post panniculectomy Family History Mother Glaucoma Diabetes mellitus Father Hypertension Diabetes mellitus Parkinson disease Sister Fibroids Social History Household Members: Family Household Members Other:: mother and father Housing: House Do you presently have visiting nurse or other home services: No Alcohol intake: never Patient Tobacco Use Status: Never used Tobacco e-Cigarette/Vaping Use: Never Used Second Hand Smoke Exposure: No service: No Sexual orientation: Don't Know Assessment & Plan Assessment & Plan (1) Morbid obesity: Code(s): E66.01 - Morbid (severe) obesity due to excess calories Plan: Pt is here with her mother. We discussed that since she has gaine 17 lbs she will need to lose 42 lbs before revision surgery, goal weight is 228 lbs before surgery. We did discuss whether this feels like the right time for her to restart our meal and exercise programs or whether she thinks if would be best to wait until she is settled into her new job. She wants to restart now. Will not start to wakes earlier by 15 minutes each day. Now wakes at 12pm and when work starts next month will need to get up boy 6 -7 am. 2 hours after waking - Premier RTD shake - over 1 hour - will switch ot powder when has to buy more. 3 hours another shake 5pm - dinner - 8 forks of protein and 8 forks of vegetables (cooked or raw) 3 hours after dinner - Aure 16 gram bar May have 1 m ore as needed if hungry Exercise - gym 4d/ week - treadmill - speed 2.8, incline 2-7 , q 3 minutes - 300 calories Continue dancing at home Will purchase - smart scale and send me weights weekly. Next appt with me in 3 weeks. Patient is morbidly obese and is not considered stable at this time. I spent 30 minutes in total with patient reviewing/updating records, examining the patient and counseling the patient on weight management as detailed above. Coding Level of Care Code Est Pt Level 4 (91565) Diagnoses Morbid obesity E66.01
[2023-01-20 11:45] VITALS: BP 127/73; PULSE 97; TEMP 36.6; O2SAT 97; BMI 47.8
== END 2023-01-20 12:13 | disposition home or self-care (01) ==
PROVIDERS: Visit Provider Physician Assistant
DX: E66.01 Morbid (severe) obesity due to excess calories (principal); Z68.42 Body mass index [BMI] 45.0-49.9, adult; Z90.3 Acquired absence of stomach [part of]; Z98.84 Bariatric surgery status
CPT/HCPCS: 99214

== ENCOUNTER → 2023-01-20 11:32 | Outpatient (BNVA) | payer OTHER, SELFPAY | PROVIDERS: Visit Provider Physician Assistant | DX: E66.01 Morbid (severe) obesity due to excess calories (principal); Z68.42 Body mass index [BMI] 45.0-49.9, adult | CPT/HCPCS: 99212 ==

== ENCOUNTER 2023-01-25 12:39 | Outpatient (AMB) | payer OTHER, SELFPAY ==
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
== END 2023-01-25 16:08 | disposition home or self-care (01) ==
PROVIDERS: Visit Provider Counselor Mental Health
DX: F31.2 Bipolar disorder, current episode manic severe with psychotic features (principal); E66.01 Morbid (severe) obesity due to excess calories
CPT/HCPCS: 90834

== ENCOUNTER → 2023-01-25 12:39 | Outpatient (BNVA) | payer OTHER, SELFPAY | PROVIDERS: Visit Provider Counselor Mental Health ==

== ENCOUNTER 2023-02-13 15:40 | Outpatient (AMB) | payer OTHER, SELFPAY ==
--- NOTE | 2023-02-13 14:58 | A.OFFVIS_ITS ---
Intake VS Expanded 02/13/23 15:40 Height 5 ft 3 in Weight 265 lb BMI 46.9 Intake Visit Reasons: TV F/U SWL Allergies cat dander Allergy (Mild, Verified 01/20/23 11:40) Sneezing house dust Allergy (Mild, Verified 01/20/23 11:40) Sneezing house dust mite Allergy (Mild, Verified 01/20/23 11:40) Sneezing HPI HPI Comments History of Present Illness Details [facility] follow up for revision of previous LSG. 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 He goal weight before surgery is 228 lbs. Started her new job - works 7am - 3 pm. 11:30- salad with chopped egg or tuna - sometimes no protein OR has ham sandwich and diet Snapple 5pm - chicken breast OR pork tenderloin with broccoli - 1 cup each. And has another cup of vegetables or salad. Diet Snapple 8pm - Atkins bar 9:30 pm - Premier powder with water May have potato chips after dinner Exercise - gym 4d/ week - treadmill - speed 2.8, incline 2-7 , q 3 minutes - 300 calories. Still dances twice a day for 30 minutes each time at home. Has not purchased - smart scale. Pre op work up completed as follows: [facility] classes - 09/13 appts - sees Meri, next appt on 02/15 RD appts - follow up on 10/21, follow up 12/09 cleared H pylori - negative Labs - done, high cholesterol, low Vit D CXR - normal ECG - Normal sinus rhythm Nonspecific T wave abnormality Abnormal ECG When compared with ECG of 15-DEC-2021 17:13, No significant change was found ECHO/stress test - 10/31 and 11/04 - both studies normal ULS - mild hepatomegaly, L 20.4 and R 16.7 UGI - IMPRESSION: 1. Mildly patulous esophagus, which is o therwise normal in appearance. 2. Small type I hiatus hernia identified . 3. Mild episodic GE reflux identified. 4. Stomach has a contour consistent with prior gastric sleeveprocedure, although appears slightly more patulous than would be expected. Mild dilatation of the stomach is a possibility. Stomach is otherwise normal. 5. Normal duodenal bulb, sweep, proximal jejunum and imaged ileum. Thepatient did have a somewhat rapid transit of contrast into the more distal small bowel, etiology uncertain. [facility] Medical History (Updated 11/09/22 @ 13:28 by Meri Palm) Post traumatic stress disorder (PTSD) Bipolar affective disorder, manic, severe, with psychotic behavior Bipolar 1 disorder Surgical History Hx of tonsillectomy Hx of hand surgery History of sleeve gastrectomy Status post panniculectomy Family History Mother Glaucoma Diabetes mellitus Father Hypertension Diabetes mellitus Parkinson disease Sister Fibroids Social History Household Members: Family Household Members Other:: mother and father Housing: House Do you presently have visiting nurse or other home services: No Alcohol intake: never Patient Tobacco Use Status: Never used Tobacco e-Cigarette/Vaping Use: Never Used Second Hand Smoke Exposure: No service: No Sexual orientation: Don't Know Assessment & Plan Assessment & Plan (1) Morbid obesity: Code(s): E66.01 - Morbid (severe) obesity due to excess calories Plan: SWL follow up- needs changes to meal plan. Patient will need a lot of support to have bariatric surgery. I asked her if she wanted to do MWL only and she said she wanted to continue to prepare fro revision surgery. Will decrease to 1 diet Snapple. 8:30 am Premier powder with water 11:30 am another shake 3pm - bar 5:30 pm - dinner - 8 forks of protein and 8 forks of vegetables (cooked or raw) 8pm - - Atkins 16 gram bar 4d/ week - treadmill - speed 2.8, incline 2-7 , q 3 minutes - 350 calories. Weights afterwards Pt to purchase smart scale and send me text me weekly. Will need help setting it up. Next appt with me in 3 weeks. Patient is still morbidly obese and is not considered stable at this time. I spent 30 minutes in total speaking with the patient via video conference counseling , reviewing records and charting in patients chart. . (2) History of sleeve gastrectomy: Comment: 06/03/2015- [facility] Code(s): Z90.3 - Acquired absence of stomach [part of] (3) Bipolar I, recurrent manic episode, severe with psychotic behavior: Code(s): F31.2 - Bipolar disorder, current episode manic severe with psychotic features Plan: see above Plan see above Telehealth Telehealth Location of provider rendering services: practice address Location of patient: address on file Patient Identification confirmed using: Name, : Yes Telehealth method: voice only Patient verbally consented to treatment: Yes Patient verbally consented to billing insurance company: Yes Patient informed of any privacy concerns related to visit: Yes Coding Level of Care Code Tele Est Pt Level 4 (09308) Diagnoses Morbid obesity E66.01 History of sleeve gastrectomy Z90.3 Bipolar I, recurrent manic episode, severe with psychotic behavior F31.2
[2023-02-13 15:40] VITALS: BMI 46.9
== END 2023-02-13 15:58 | disposition home or self-care (01) ==
LOC: HO.HBS 15:40
PROVIDERS: Visit Provider Physician Assistant
DX: E66.01 Morbid (severe) obesity due to excess calories (principal); Z90.3 Acquired absence of stomach [part of]; F31.2 Bipolar disorder, current episode manic severe with psychotic features
CPT/HCPCS: 99214

== ENCOUNTER → 2023-02-13 15:40 | Outpatient (BNVA) | payer OTHER, SELFPAY | PROVIDERS: Visit Provider Physician Assistant ==

== ENCOUNTER → 2023-02-15 15:37 | Outpatient (BNVA) | payer OTHER, SELFPAY | PROVIDERS: Visit Provider Counselor Mental Health ==

== ENCOUNTER → 2023-02-15 15:37 | Outpatient (BNVA) | payer OTHER, SELFPAY | PROVIDERS: Visit Provider Counselor Mental Health ==

== ENCOUNTER 2023-03-13 15:30 | Outpatient (AMB) | payer MEDICARE, MEDICAID, SELFPAY ==
--- NOTE | 2023-03-13 14:53 | A.OFFVIS_ITS ---
Intake VS Expanded 03/13/23 15:52 Height 5 ft 3 in Weight 260 lb BMI 46.1 Intake Visit Reasons: (TV) F/U SWL Allergies cat dander Allergy (Mild, Verified 01/20/23 11:40) Sneezing house dust Allergy (Mild, Verified 01/20/23 11:40) Sneezing house dust mite Allergy (Mild, Verified 01/20/23 11:40) Sneezing HPI HPI Comments History of Present Illness Details [facility] follow up for revision of previous LSG. 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 He goal weight before surgery is 228 lbs. Started works 7am - 3 pm. Weight is still above starting weight but she is losing well now. We made substantial changes to her meal plan at her last visit. Since her last appt she is: 8:30 am - Premier powder with water 11:30 am - second shake 3 pm -Atkins bar 5:30 pm - 8 forks each of vegetables and protein 8:30 pm- bar if hungry Exercise - gym 4d/ week - elliptical (150 calories) or treadmill - speed 2.8, incline 2-7 , q 3 minutes - 300 calories over 20 minutes. Still dances twice a day for 30 minutes each time at home. Has not purchased smart scale - because no one in her home has a smart phone. Pre op work up completed as follows: [facility] classes - 09/13 appts - sees Meri, next appt on 02/15 -missed, last appt 01/25 - has appt on 03/15 RD appts - follow up on 10/21, follow up 12/09 cleared H pylori - negative Labs - done, high cholesterol, low Vit D CXR - normal ECG - Normal sinus rhythm Nonspecific T wave abnormality Abnormal ECG When compared with ECG of 15-DEC-2021 17:13, No significant change was found ECHO/stress test - 10/31 and 11/04 - both studies normal ULS - mild hepatomegaly, L 20.4 and R 16.7 UGI - IMPRESSION: 1. Mildly patulous esophagus, which is o therwise normal in appearance. 2. Small type I hiatus hernia identified . 3. Mild episodic GE reflux identified. 4. Stomach has a contour consistent with prior gastric sleeveprocedure, although appears slightly more patulous than would beexpected. Mild dilatation of the stomach is a possibility. Stomach is otherwise normal. 5. Normal duodenal bulb, sweep, proximal jejunum and imaged ileum. Thepatient did have a somewhat rapid transit of contrast into the moredistal small bowel, etiology uncertain. [facility] Medical History (Updated 11/09/22 @ 13:28 by Meri Palm) Post traumatic stress disorder (PTSD) Bipolar affective disorder, manic, severe, with psychotic behavior Bipolar 1 disorder Surgical History Hx of tonsillectomy Hx of hand surgery History of sleeve gastrectomy Status post panniculectomy Family History Mother Glaucoma Diabetes mellitus Father Hypertension Diabetes mellitus Parkinson disease Sister Fibroids Social History Household Members: Family Household Members Other:: mother and father Housing: House Do you presently have visiting nurse or other home services: No Alcohol intake: never Patient Tobacco Use Status: Never used Tobacco e-Cigarette/Vaping Use: Never Used Second Hand Smoke Exposure: No service: No Sexual orientation: Don't Know Assessment & Plan Assessment & Plan (1) Morbid obesity: Code(s): E66.01 - Morbid (severe) obesity due to excess calories Plan: Pt is now following meal and exercise plans and is losing weight. She is preparing for revision of previous LSG and still needs clearance from Meri and review by Dr Castaneda Exercise - speed 3.0, incline 3 -9, burn 350 calories - 4d/ week, continue dancing nightly at home; Meri - appt later this week. Because she does not have access to a smart phone, and lives [place] away from [facility] will have office appts every 2 weeks with me. Patient is still morbidly obese and is not considered stable at this time. I spent 30 minutes in total speaking with the patient via video conference counseling , reviewing records and charting in patients chart. . (2) Bipolar 1 disorder: Code(s): F31.9 - Bipolar disorder, unspecified (3) History of sleeve gastrectomy: Comment: 06/03/2015- [facility] Code(s): Z90.3 - Acquired absence of stomach [part of] Plan see above Coding Level of Care Code Tele Est Pt Level 4 (78843) Diagnoses Morbid obesity E66.01 Bipolar 1 disorder F31.9 History of sleeve gastrectomy Z90.3
[2023-03-13 15:52] VITALS: BMI 46.1
== END 2023-03-13 16:08 | disposition home or self-care (01) ==
LOC: HO.HBS 16:00
PROVIDERS: Visit Provider Physician Assistant
DX: E66.01 Morbid (severe) obesity due to excess calories (principal); Z68.42 Body mass index [BMI] 45.0-49.9, adult; Z90.3 Acquired absence of stomach [part of]; Z98.84 Bariatric surgery status
CPT/HCPCS: 99213

== ENCOUNTER → 2023-03-13 15:30 | Outpatient (BNVA) | payer MEDICARE, MEDICAID, SELFPAY | PROVIDERS: Visit Provider Physician Assistant ==

== ENCOUNTER 2023-03-15 15:34 | Outpatient (AMB) | payer MEDICARE, MEDICAID, SELFPAY ==
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
== END 2023-04-05 16:05 | disposition home or self-care (01) ==
PROVIDERS: Visit Provider Counselor Mental Health
DX: F31.2 Bipolar disorder, current episode manic severe with psychotic features (principal); E66.01 Morbid (severe) obesity due to excess calories; Z68.42 Body mass index [BMI] 45.0-49.9, adult
CPT/HCPCS: 90834

== ENCOUNTER → 2023-03-15 15:34 | Outpatient (BNVA) | payer MEDICARE, MEDICAID, SELFPAY | PROVIDERS: Visit Provider Counselor Mental Health ==

== ENCOUNTER 2023-04-05 15:45 | Outpatient (AMB) | payer MEDICARE, MEDICAID, SELFPAY ==
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
== END 2023-04-05 16:30 ==
PROVIDERS: Visit Provider Counselor Mental Health
DX: F31.2 Bipolar disorder, current episode manic severe with psychotic features (principal); E66.01 Morbid (severe) obesity due to excess calories; Z68.43 Body mass index [BMI] 50.0-59.9, adult
CPT/HCPCS: 90834

== ENCOUNTER → 2023-04-05 15:45 | Outpatient (BNVA) | payer MEDICARE, MEDICAID, SELFPAY | PROVIDERS: Visit Provider Counselor Mental Health ==

== ENCOUNTER 2023-04-26 15:42 | Outpatient (AMB) | payer MEDICARE, MEDICAID, SELFPAY ==
--- NOTE | 2023-04-26 14:50 | A.OFFVIS_ITS ---
Intake VS Expanded 04/26/23 15:55 BP 131/76 Blood Pressure Location Rt brachial Blood Pressure Position Sitting Pulse 81 Pulse Source Pulse Oximeter Temp 97.2 F Temperature Source Tympanic Pulse Oximetry 97 Oxygen Delivery Method Room Air Height 5 ft 3 in Weight 291 lb 6.4 oz BMI 51.6 Body Fat % 49.6 Body Fat Mass 144.4 Fat Free Mass 146.8 Visceral Fat Rating 17.0 Body Water % 36.1 Body Water Mass 105.2 Muscle Mass/Score 139.4 Basal Metabolic Rate/Score 2,126 Intake Visit Reasons: (OV) F/U SWL Allergies cat dander Allergy (Mild, Verified 04/26/23 15:49) Sneezing house dust Allergy (Mild, Verified 04/26/23 15:49) Sneezing house dust mite Allergy (Mild, Verified 04/26/23 15:49) Sneezing Medication List - Last Reconciled 04/26/23 by Carole Red PA-C cholecalciferol (vitamin D3) 25 mcg PO DAILY divalproex ER 1,500 mg (3 x 500 mg) PO BEDTIME 30 days divalproex ER 250 mg PO BEDTIME 30 days levothyroxine 50 mcg PO DAILY lithium carbonate ER 900 mg (2 x 450 mg) PO BEDTIME 30 days melatonin 10 mg PO BEDTIME PRN 30 days olanzapine 10 mg PO BEDTIME 30 days [Visiting Nurse Daily Visiting Nurse] HPI HPI Comments History of Present Illness Details [facility] follow up for revision of previous LSG. 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 Her goal weight before surgery is 228 lbs. Meal plan:eats potato chips and ham and cheese sandwiches 6 am - Premier powder with water 11:30 am - prtoein bar 3 pm - 8 forks each of vegetables and pr otein 8pm - shake May have a second bar Exercise - gym 3 - 4d/ week - elliptical (150 calories) or treadmill - speed 3.5 incline 1.5 , q 3 minutes - 450 calories over 40 minutes. Still dances twice a day for 30 minutes each time at home. Has not purchased smart scale - because no one in her home has a smart phone. Pre op work up completed as follows: [facility] classes - 09/13 appts - sees Meri, next appt on 1/10 -missed, last appt 01/25 - has appt on 03/15 (missed that appt also - now 05/02) RD appts - follow up on 10/21, follow up 12/09 cleared H pylori - negative Labs - done, high cholesterol, low Vit D CXR - normal ECG - Normal sinus rhythm Nonspecific T wave abnormality Abnormal ECG When compared with ECG of 15-DEC-2021 17:13, No significant change was found ECHO/stress test - 10/31 and 11/04 - both studies normal ULS - mild hepatomegaly, L 20.4 and R 16.7 UGI - IMPRESSION: 1. Mildly patulous esophagus, which is o therwise normal in appearance. 2. Small type I hiatus hernia identified . 3. Mild episodic GE reflux identified. 4. Stomach has a contour consistent with prior gastric sleeveprocedure, although appears slightly more patulous than would beexpected. Mild dilatation of the stomach is a possibility. Stomach isotherwise normal. 5. Normal duodenal bulb, sweep, proximal jejunum and imaged ileum. Thepatient did have a somewhat rapid transit of contrast into the moredistal small bowel, etiology uncertain. [facility] Medical History (Updated 11/09/22 @ 13:28 by Meri Palm) Post traumatic stress disorder (PTSD) Bipolar affective disorder, manic, severe, with psychotic behavior Bipolar 1 disorder Surgical History Hx of tonsillectomy Hx of hand surgery History of sleeve gastrectomy Status post panniculectomy Family History Mother Glaucoma Diabetes mellitus Father Hypertension Diabetes mellitus Parkinson disease Sister Fibroids Social History Household Members: Family Household Members Other:: mother and father Housing: House Do you presently have visiting nurse or other home services: No Alcohol intake: never Patient Tobacco Use Status: Never used Tobacco e-Cigarette/Vaping Use: Never Used Second Hand Smoke Exposure: No service: No Sexual orientation: Don't Know Assessment & Plan Assessment & Plan (1) Morbid obesity: Code(s): E66.01 - Morbid (severe) obesity due to excess calories Plan: Pt wants revision of previous LSG, she has gained 50 lbs since starting our program, 30 lbs over the past few months since starting her new job. She blames it on her psych meds, but there have not been any changes in her meds in over 1 year. She was seen today with her mother and father in room. I discussed with her that this program is not working gor her and that she has options. [facility] vs going to [facility] program. She understands that a requirement of our program in to report weekly weights via text - and she will not be able to adhere to this. I told her that another surgery will not fix her eating behavior issues. We did discuss some changes that she could make now, but ultimatley surgery is not likely the answer. She has an appt next week with Meri and I told her that I will call her next week after that appt to discuss any further appts in our department. I reassured her that any lab or imagin studies that she had done [place] [facility] can be transerred to another program as needed. 6 am - Premier powder with water 11:30 am - protein bar 3 pm - 8 forks each of vegetables and protein 8pm - shake May have a second bar Exercise - gym 4d/ week - elliptical (150 calories) or treadmill - speed 3.5 incline 1.5 , q 3 minutes - 450 calories over 40 minutes. 2,000 asia Still dances twice a day for 30 minutes each time at home. Meri next week and will decide. Patient is morbidly obese and is not considered stable at this time. I spent 40 minutes in total with patient reviewing/updating records, examining the patient and counseling the patient on weight management as detailed above. (2) [facility]): Z90.3 - Acquired absence of stomach [part of] Plan: see above (3) Bipolar affective disorder, manic, severe, with psychotic behavior: Comment: r/o schizoaffective Code(s): F31.2 - Bipolar disorder, current episode manic severe with psychotic features Plan: see above Coding Level of Care Code Est Pt Level 4 (21200) Diagnoses Morbid obesity E66.01 History of sleeve gastrectomy Z90.3 Bipolar affective disorder, manic, severe, with psychotic behavior F31.2
[2023-04-26 15:55] VITALS: BP 131/76; PULSE 81; TEMP 36.2; O2SAT 97; BMI 51.6
== END 2023-04-26 17:26 | disposition home or self-care (01) ==
PROVIDERS: Visit Provider Physician Assistant
DX: E66.01 Morbid (severe) obesity due to excess calories (principal); Z68.43 Body mass index [BMI] 50.0-59.9, adult; Z90.3 Acquired absence of stomach [part of]; Z98.84 Bariatric surgery status
CPT/HCPCS: 99214

== ENCOUNTER → 2023-04-26 15:42 | Outpatient (BNVA) | payer MEDICARE, MEDICAID, SELFPAY | PROVIDERS: Visit Provider Physician Assistant | DX: E66.01 Morbid (severe) obesity due to excess calories (principal); F31.2 Bipolar disorder, current episode manic severe with psychotic features; Z90.3 Acquired absence of stomach [part of]; Z98.84 Bariatric surgery status; Z68.43 Body mass index [BMI] 50.0-59.9, adult | CPT/HCPCS: 99212 ==

== ENCOUNTER 2023-05-17 16:01 | Outpatient (AMB) | payer MEDICARE, MEDICAID, OTHER, SELFPAY ==
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
== END 2023-06-26 16:07 | disposition home or self-care (01) ==
PROVIDERS: Visit Provider Counselor Mental Health
DX: F31.2 Bipolar disorder, current episode manic severe with psychotic features (principal); E66.01 Morbid (severe) obesity due to excess calories; Z68.41 Body mass index [BMI] 40.0-44.9, adult
CPT/HCPCS: 90834

== ENCOUNTER → 2023-05-17 16:01 | Outpatient (BNVA) | payer MEDICARE, MEDICAID, OTHER, SELFPAY | PROVIDERS: Visit Provider Counselor Mental Health ==

== ENCOUNTER 2023-05-31 15:51 | Outpatient (AMB) | payer MEDICARE, MEDICAID, OTHER, SELFPAY ==
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
== END 2023-05-31 16:45 | disposition home or self-care (01) ==
PROVIDERS: Visit Provider Counselor Mental Health
DX: F31.2 Bipolar disorder, current episode manic severe with psychotic features (principal); E66.01 Morbid (severe) obesity due to excess calories; Z68.43 Body mass index [BMI] 50.0-59.9, adult
CPT/HCPCS: 90834

== ENCOUNTER → 2023-05-31 15:51 | Outpatient (BNVA) | payer MEDICARE, MEDICAID, OTHER, SELFPAY | PROVIDERS: Visit Provider Counselor Mental Health ==

== ENCOUNTER 2023-06-12 15:45 | Outpatient (AMB) | payer MEDICARE, MEDICAID, OTHER, SELFPAY ==
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
== END 2023-06-12 16:45 | disposition home or self-care (01) ==
PROVIDERS: Visit Provider Counselor Mental Health
DX: F31.2 Bipolar disorder, current episode manic severe with psychotic features (principal); E66.01 Morbid (severe) obesity due to excess calories; Z68.43 Body mass index [BMI] 50.0-59.9, adult
CPT/HCPCS: 90834

== ENCOUNTER → 2023-06-12 15:45 | Outpatient (BNVA) | payer MEDICARE, MEDICAID, OTHER, SELFPAY | PROVIDERS: Visit Provider Counselor Mental Health ==

== ENCOUNTER 2023-06-26 15:46 | Outpatient (AMB) | payer MEDICARE, MEDICAID, OTHER, SELFPAY ==
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
== END 2023-06-26 16:20 | disposition home or self-care (01) ==
PROVIDERS: Visit Provider Counselor Mental Health
DX: F31.2 Bipolar disorder, current episode manic severe with psychotic features (principal); E66.01 Morbid (severe) obesity due to excess calories; Z68.43 Body mass index [BMI] 50.0-59.9, adult
CPT/HCPCS: 90834

== ENCOUNTER → 2023-06-26 15:46 | Outpatient (BNVA) | payer MEDICARE, MEDICAID, OTHER, SELFPAY | PROVIDERS: Visit Provider Counselor Mental Health ==